=== PATIENT | male | born 1970 | race Hispanic/Latino ===

== ENCOUNTER 2016-06-15 22:28 | Emergency (ER) | payer MEDICARE ==
[2016-06-15 23:00] VITALS: BP 157/109
[2016-06-15] MEDS ORDERED: TORADOL IM ONE (23:39)
--- NOTE | 2016-06-15 23:39 | Emergency Department Report ---
HPI - General Chief Complaint: Extremity Problem,Nontraumatic Time Seen by Provider: 06/15/16 23:33 - HPI HPI: Patient is a 45-year-old male who presents to ED complaining spider bite to his left wrist times yesterday. Patient states felt something bite him on his wrist and caudally. She says since yesterday wrist has been slightly tender and swollen. Patient states pain at bite sites. Patient also says that he is out of his lisinopril medication for the past 2 months and has not been able to get it refilled. Patient denies fever/chills/nausea/vomiting/abdominal pain/loss of sensation of Wrist or fingers/headache/blurred vision/dizziness ED Past Medical Hx - Past Medical History Previous Medical History?: Yes Hx Hypertension: Yes (out of medication) Hx Psychiatric Treatment: Yes (depression, bi-polar, schizophrenia) Additional medical history: high cholesterol - Surgical History Past Surgical History?: No - Social History Smoking Status: Light Tobacco Smoker Substance Use Type: None - Medications Home Medications: Home Medications Medication Instructions Recorded Confirmed Last Taken Type Duloxetine HCl [Cymbalta] 60 mg PO DAILY #30 capsule. 01/11/16 Unknown Rx QUEtiapine [SEROquel] 800 mg PO QHS #120 tablet 01/11/16 Unknown Rx carBAMazepine [TEGretol] 200 mg PO QID #120 tablet 01/11/16 Unknown Rx hydrOXYzine PAMOATE [Vistaril] 50 mg PO TID #90 capsule 01/11/16 Unknown Rx Acetaminophen [Acetaminophen TAB] 500 mg PO Q6HR #20 tablet 06/15/16 Unknown Rx Cephalexin [Keflex] 1 tab PO BID #12 capsule 06/15/16 Unknown Rx Lisinopril [Zestril TAB] 20 mg PO QDAY #30 tablet 06/15/16 Unknown Rx ED Review of Systems ROS: Stated complaint: LT WRIST OPEN SORE Other details as noted in HPI Constitutional: denies: chills, fever Eyes: denies: eye pain, eye discharge, vision change ENT: denies: ear pain, throat pain Respiratory: denies: cough, orthopnea, shortness of breath, wheezing Cardiovascular: denies: chest pain, palpitations Endocrine: no symptoms reported. denies: excessive sweating, intolerance to cold Gastrointestinal: denies: abdominal pain, nausea, vomiting, diarrhea Genitourinary: denies: urgency, dysuria Musculoskeletal: denies: back pain, joint swelling, arthralgia Skin: pruritus, other (insect bite on left lateral wrist). denies: rash, lesions Neurological: denies: headache, weakness, numbness, paresthesias Psychiatric: denies: anxiety, depression Hematological/Lymphatic: denies: easy bleeding, easy bruising Physical Exam - Physical Exam Vital Signs: Vital Signs 06/15/16 22:58 Temperature 99.9 F H Pulse Rate 76 Respiratory 18 Rate Blood Pressure 157/109 O2 Sat by Pulse 98 Oximetry General: Patient alert and oriented 3 ,no distress, low-grade fever otherwise vital signs stable. Physical Exam: GENERAL: Alert and oriented x3, no apparent distress, Normal Gait, atraumatic. HEAD: Head is normocephalic and a-traumatic. EYES: Extra ocular muscles are intact. Pupils are equal, round, and reactive to light and accommodation. MOUTH:Mouth is well hydrated and without lesions. Tonsils nonerythematous or swollen, Uvula midline, Tongue not elevated. Mucous membranes are moist. Posterior pharynx clear, no exudate or lesions. Patent airways. NECK: Supple. Non edematous, No carotid bruits. No lymphadenopathy or thyromegaly. LUNGS: Symetrical with respiration, No wheezing, no rales or crackles, CTAB. HEART: S1, S2 present, regular rate and rhythm without murmur, no rubs, no gallops. ABDOMEN: No organomegaly was noted,Positive bowel sounds, soft, and non- distended. . Nontender to palpation on all Quadrants, NO CVA tenderness. EXTREMITIES/MUSCULOSKELETAL: No cyanosis, clubbing, rash, lesions or edema. Full ROM bilaterally. UE/LE Pulses 2+ bilaterally. LE and UE 5+ strength bilaterally NEUROLOGIC: No focal Deficit, Cranial nerves II through XII are grossly intact. No loss of sensation, No facial droop, Negative rhomberg. PSYCHIATRIC: Mood is congruent with affect, denies suicidal or homicidal ideations. SKIN: Warm and dry, moderate 1 cm cellulitis surrounding insect bite wound located on lateral aspect of left wrist. no pus/drainage. several other multiple healed bite gomez on lower arms bilaterally. ED Course Vital Signs 06/15/16 22:58 Temperature 99.9 F H Pulse Rate 76 Respiratory 18 Rate Blood Pressure 157/109 O2 Sat by Pulse 98 Oximetry ED Medical Decision Making - Medical Decision Making 45-year-old male presents with insect bite and medication refill Patient in no distress. ED course. Patient received 60 IM Toradol for pain and Tylenol for fever reduction. Discussed heat compressions to insect bite. Discussed small chain for inflammation and antibiotic to prevent bacterial infection. Discussed with patient follow-up with her primary care physician as referred. Critical care attestation.: If time is entered above; I have spent that time in minutes in the direct care of this critically ill patient, excluding procedure time. ED Disposition Clinical Impression: Insect bite, Cellulitis Disposition: DISCHARGED TO HOME OR SELFCARE Is pt being admited?: No Does the pt Need Aspirin: No Condition: Stable Instructions: Insect Bite or Sting (ED), Cellulitis (ED) Prescriptions: Acetaminophen [Acetaminophen TAB] 500 mg PO Q6HR #20 tablet Cephalexin [Keflex] 1 tab PO BID #12 capsule Lisinopril [Zestril TAB] 20 mg PO QDAY #30 tablet Referrals: [facility] [Outside] - 3-5 Days [facility] [Outside] - 3-5 Days [facility] [Outside] - 3-5 Days Time of Disposition: 23:56
[2016-06-15] MEDS ORDERED: TYLENOL PO ONE (23:43)
== END 2016-06-16 00:08 | disposition home or self-care (01) ==
LOC: ED 22:28
DX: S60.862A Insect bite (nonvenomous) of left wrist, initial encounter (principal); L03.114 Cellulitis of left upper limb; I10 Essential (primary) hypertension; F31.9 Bipolar disorder, unspecified; F20.9 Schizophrenia, unspecified; F17.200 Nicotine dependence, unspecified, uncomplicated; W57.XXXA Bitten or stung by nonvenomous insect and other nonvenomous arthropods, initial encounter; Y93.9 Activity, unspecified; Y92.9 Unspecified place or not applicable; Y99.9 Unspecified external cause status
CPT/HCPCS: 96372; 99282; J1885

== ENCOUNTER 2016-09-11 14:40 | Emergency (ER) | payer MEDICARE ==
[2016-09-11 15:42] VITALS: BP 147/99
--- NOTE | 2016-09-11 18:13 | Emergency Department Report ---
ED Recheck HPI - General Chief Complaint: Recheck/Abnormal Lab/Rx Stated Complaint: MEDS REFILL Time Seen by Provider: 09/11/16 18:08 Source: patient Mode of arrival: Ambulatory Limitations: No Limitations - History of Present Illness Initial Comments: Patient is a 46-year-old male who presents to ED for medication refill. Patient reports that he is out of his blood pressure medication lisinopril 20 mg and simply needs a refill on it. Patient denies any headaches, dizziness, lightheadedness, blurred vision, or any other symptoms. States otherwise feels really good. Onset/Timin -: days(s) Returns Today for: request for prescription, other (out of his medication) Symptoms Since Prior Visit: no new symptoms Associated Symptoms: none - Related Data Previous Rx's Medication Instructions Recorded Last Taken Type Duloxetine HCl [Cymbalta] 60 mg PO DAILY #30 capsule. 01/11/16 Unknown Rx QUEtiapine [SEROquel] 800 mg PO QHS #120 tablet 01/11/16 Unknown Rx carBAMazepine [TEGretol] 200 mg PO QID #120 tablet 01/11/16 Unknown Rx hydrOXYzine PAMOATE [Vistaril] 50 mg PO TID #90 capsule 01/11/16 Unknown Rx Acetaminophen [Acetaminophen TAB] 500 mg PO Q6HR #20 tablet 06/15/16 Unknown Rx Cephalexin [Keflex] 1 tab PO BID #12 capsule 06/15/16 Unknown Rx Lisinopril [Zestril TAB] 20 mg PO QDAY #30 tablet 06/15/16 Unknown Rx Lisinopril [Zestril TAB] 20 mg PO QDAY #30 tablet 09/11/16 Unknown Rx Allergies Allergy/AdvReac Type Severity Reaction Status Date / Time chlorpromazine HCl Allergy Itching Verified 09/11/16 15:38 [From Thorazine] fluoxetine HCl [From Prozac] Allergy Swelling Verified 09/11/16 15:38 haloperidol [From Haldol] Allergy Itching Verified 09/11/16 15:38 haloperidol lactate Allergy Itching Verified 09/11/16 15:38 [From Haldol] propranolol HCl Allergy Itching Verified 09/11/16 15:38 [From Inderal LA] ED Review of Systems ROS: Stated complaint: MEDS REFILL Other details as noted in HPI Constitutional: denies: chills, fever Eyes: denies: eye pain, eye discharge, vision change ENT: denies: ear pain, throat pain Respiratory: denies: cough, shortness of breath, wheezing Cardiovascular: denies: chest pain, palpitations Gastrointestinal: denies: abdominal pain, nausea, diarrhea Musculoskeletal: denies: back pain, joint swelling, arthralgia Neurological: denies: headache, weakness, paresthesias Psychiatric: denies: anxiety, depression ED Past Medical Hx - Past Medical History Hx Hypertension: Yes (out of medication) Hx Psychiatric Treatment: Yes (depression, bi-polar, schizophrenia) Additional medical history: high cholesterol - Surgical History Past Surgical History?: No - Social History Smoking Status: Current Every Day Smoker Substance Use Type: None - Medications Home Medications: Home Medications Medication Instructions Recorded Confirmed Last Taken Type Duloxetine HCl [Cymbalta] 60 mg PO DAILY #30 capsule. 01/11/16 Unknown Rx QUEtiapine [SEROquel] 800 mg PO QHS #120 tablet 01/11/16 Unknown Rx carBAMazepine [TEGretol] 200 mg PO QID #120 tablet 01/11/16 Unknown Rx hydrOXYzine PAMOATE [Vistaril] 50 mg PO TID #90 capsule 01/11/16 Unknown Rx Acetaminophen [Acetaminophen TAB] 500 mg PO Q6HR #20 tablet 06/15/16 Unknown Rx Cephalexin [Keflex] 1 tab PO BID #12 capsule 06/15/16 Unknown Rx Lisinopril [Zestril TAB] 20 mg PO QDAY #30 tablet 06/15/16 Unknown Rx Lisinopril [Zestril TAB] 20 mg PO QDAY #30 tablet 09/11/16 Unknown Rx ED Physical Exam - General Limitations: No Limitations General appearance: alert, in no apparent distress - Head Head exam: Present: atraumatic, normocephalic - Eye Eye exam: Present: normal appearance - Respiratory Respiratory exam: Present: normal lung sounds bilaterally. Absent: respiratory distress - Cardiovascular Cardiovascular Exam: Present: regular rate, normal rhythm. Absent: systolic murmur, diastolic murmur, rubs, gallop - Neurological Exam Neurological exam: Present: alert, oriented X3, normal gait - Psychiatric Psychiatric exam: Present: normal affect, normal mood ED Course Vital Signs 09/11/16 15:39 Temperature 98.4 F Pulse Rate 82 Respiratory 20 Rate Blood Pressure 147/99 O2 Sat by Pulse 97 Oximetry ED Recheck MDM - Medical Decision Making Patient is resting comfortably. We'll refill lisinopril 20 mg. PCP in 2-3 days. Critical care attestation.: If time is entered above; I have spent that time in minutes in the direct care of this critically ill patient, excluding procedure time. ED Disposition Clinical Impression: Encounter for medication refill Hypertension Qualifiers: Hypertension type: essential hypertension Qualified Code(s): I10 - Essential ( primary) hypertension Disposition: DISCHARGED TO HOME OR SELFCARE Is pt being admited?: No Does the pt Need Aspirin: No Condition: Stable Instructions: Hypertension (ED) Prescriptions: Lisinopril [Zestril TAB] 20 mg PO QDAY #30 tablet Referrals: PRIMARY CARE, [Primary Care Provider] - 3-5 Days Time of Disposition: 18:13
== END 2016-09-11 18:43 | disposition home or self-care (01) ==
LOC: ED 14:40
DX: Z76.0 Encounter for issue of repeat prescription (principal); I10 Essential (primary) hypertension; F31.9 Bipolar disorder, unspecified; F20.9 Schizophrenia, unspecified; E78.00 Pure hypercholesterolemia, unspecified; F17.200 Nicotine dependence, unspecified, uncomplicated; Z88.8 Allergy status to other drugs, medicaments and biological substances
CPT/HCPCS: 99282

== ENCOUNTER 2016-11-03 14:51 | Emergency (ER) | payer MEDICARE ==
[2016-11-03 16:32] LABS: Urine Drugs of Abuse Note Disclamer
[2016-11-03 16:33] LABS: Basophils % (Auto) 0.5 % (0.0-1.8); Eosinophils % (Auto) 0.1 % (0.0-4.3); Hematocrit 46.7 % (35.5-45.6); Hemoglobin 15.7 gm/dl (11.8-15.2); Mean Corpuscular HGB Conc 34 % (32-34); Mean Corpuscular Hemoglobin 32 pg (28-32); Mean Corpuscular Volume 94 fl (84-94); Platelet Count 185 K/mm3 (140-440); Red Blood Count 4.97 M/mm3 (3.65-5.03); Red Cell Distribution Width 13.7 % (13.2-15.2); White Blood Count 11.4 K/mm3 (4.5-11.0)
[2016-11-03 16:47] LABS: BUN/Creatinine Ratio 13.07; Chloride 101.1 mmol/L (98-107); Potassium 4.2 mmol/L (3.6-5.0)
[2016-11-03 17:08] LABS: Bilirubin,Urine NEG (Negative); Blood,Urine NEG (Negative); Ketones,Urine NEG (Negative); Leukocyte Esterase,Urine NEG (Negative); Mucus,Urine FEW /HPF; Nitrite,Urine NEG (Negative)
[2016-11-03] MEDS ORDERED: ATIVAN IM PRN (17:35)
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
[2016-11-03] MEDS ORDERED: ACTICIN TP ONE (19:47)
[2016-11-03 19:50] LABS: Salicylate < 0.3 mg/dL (2.8-20.0); Valproate < 2.8 ug/mL (50-100)
[2016-11-03] MEDS ORDERED: NON-FORMULARY (Duloxetine Hcl [Cymbalta] 60 MG) PO SCH (20:00)
[2016-11-04] MEDS: ZESTRIL PO SCH ×2 (02:43→10:28)
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
[2016-11-04 16:14] LABS: Alanine Aminotransferase 11 units/L (7-56); Alkaline Phosphatase 91 units/L (35-129)
[2016-11-04] MEDS: CYMBALTA PO SCH (17:42)
[2016-11-05] MEDS: CYMBALTA PO SCH (10:30)
[2016-11-05] MEDS: ZESTRIL PO SCH (10:30)
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
--- NOTE | 2016-11-06 08:53 | Progress Note ---
Subjective - Reason for Consult Consult date: 11/06/16 Reason for consult: Psychiatry Follow-up - Chief Complaint Chief complaint: "Can I go home today" This is a 46-year-old male presenting to [facility] because of SI/HI's. Today patient is calm and cooperative during our conversation. He stated that he was going to be discharged yesterday, but it didn't happened. Patient denies SI/HI's, AVH's, or depression symptoms. His biggest issue was his current living arrangement, so a friend Pastor Alicia will help him found another place to stay. Mental Status Exam - Vital signs Last Vital Signs Temp 98.6 F 11/05/16 07:37 Pulse 61 11/05/16 23:53 Resp 17 11/05/16 23:53 BP 130/82 11/05/16 23:53 Pulse Ox 99 11/05/16 23:53 - Exam Narrative exam: MSE: Appearance: cooperative, calm Behavior: poor eye contact Speech: regular rate and tone Mood: "I feel so much better" Affect: congruent to mood Thought Process: linear Thought Content: denies SI/HI's AVH's Motor Activity: ambulatory Cognition: a/ox 3 Insight: fair Judgment: fair Assessment and Plan Impression: This is a 46-year-old male presenting to [facility] because of SI/HI's. Today patient is calm and cooperative during our conversation. He stated that he was going to be discharged yesterday, but it didn't happened. Patient denies SI/HI's, AVH's, or depression symptoms. Collateral Information: Pastor Alicia [phone] will pick patient up and coordinate his living arrangements. Recommendation/Plan: Rescind 1013. Continue current psy medication regimen. Patient has a psychiatrist and seen by a local ACT team.
[2016-11-06] MEDS: CYMBALTA PO SCH (10:15)
[2016-11-06] MEDS: ZESTRIL PO SCH (10:22)
[2016-11-06 10:24] VITALS: BP 114/69
== END 2016-11-06 13:18 ==
LOC: ED 14:51 → EEVIPCON 14:51 → ED 11-06 13:18
DX: R45.851 Suicidal ideations (principal); R45.850 Homicidal ideations; Z00.8 Encounter for other general examination; I10 Essential (primary) hypertension; F31.9 Bipolar disorder, unspecified; F20.9 Schizophrenia, unspecified; E78.00 Pure hypercholesterolemia, unspecified; F17.200 Nicotine dependence, unspecified, uncomplicated; Z88.8 Allergy status to other drugs, medicaments and biological substances
CPT/HCPCS: 36415; 80048; 80164; 80307; 81001; 82550; 84075; 84450; 84460; 85025; 93005; 93010; 99285; G0480; 80320

== ENCOUNTER 2017-01-05 09:13 | Emergency (ER) | payer MEDICARE ==
--- NOTE | 2017-01-05 12:32 | Emergency Department Report ---
ED General Adult HPI - General Chief complaint: Skin Rash Stated complaint: MED REFILL/RASH Time Seen by Provider: 01/05/17 12:29 Source: patient, RN notes reviewed, old records reviewed Mode of arrival: Ambulatory Limitations: No Limitations - History of Present Illness Initial comments: This is a 46-year-old male. He presents to the ER with 2 complaints. His first complaint is medication refill. He takes lisinopril 20 mg daily, Cymbalta 60 mg daily, Seroquel 800 mg daily at bedtime, Tegretol 200 mg twice daily, Vistaril 50 mg twice daily. He is not homicidal or suicidal, he is not experiencing audio or visual hallucinations, and he reports he recently missed an appointment with his outpatient psychiatrist in [place], Dr. Pelayo. The patient's next complaint is rash. The rash started on the back, then about the chest, abdomen, and lower extremities. It is pruritic. No recent trips, no recent antibiotic use, no sick contacts, patient sleeps in bed, he reports no insect bites or stings. No fevers, chills, chest pain, shortness of breath -: Gradual, week(s) Location: chest, back, abdomen, left, right, upper extremity, lower extremity Consistency: constant Improves with: medication Worsens with: none Associated Symptoms: rash. denies: confusion, chest pain, cough, diaphoresis, headaches, loss of appetite, malaise, nausea/vomiting, seizure, shortness of breath, syncope, weakness - Related Data Previous Rx's Medication Instructions Recorded Last Taken Type Depakote 500 mg PO QAM #30 11/06/16 Unknown Rx Divalproex ER [Depakote ER] 1,000 mg PO QPM #30 tablet 11/06/16 Unknown Rx Duloxetine HCl [Cymbalta] 60 mg PO DAILY #7 capsule. 01/05/17 Unknown Rx Lisinopril [Zestril TAB] 20 mg PO QDAY #30 tablet 01/05/17 Unknown Rx Permethrin 5% [Acticin 5% CREAM] 1 applicatio TP ONCE #2 tube 01/05/17 Unknown Rx QUEtiapine [SEROquel] 800 mg PO QHS #21 tablet 01/05/17 Unknown Rx carBAMazepine [TEGretol] 200 mg PO TID #21 tablet 01/05/17 Unknown Rx hydrOXYzine PAMOATE [Vistaril] 50 mg PO TID #21 capsule 01/05/17 Unknown Rx Allergies Allergy/AdvReac Type Severity Reaction Status Date / Time chlorpromazine HCl Allergy Itching Verified 09/11/16 15:38 [From Thorazine] fluoxetine HCl [From Prozac] Allergy Swelling Verified 09/11/16 15:38 haloperidol [From Haldol] Allergy Itching Verified 09/11/16 15:38 haloperidol lactate Allergy Itching Verified 09/11/16 15:38 [From Haldol] propranolol HCl Allergy Itching Verified 09/11/16 15:38 [From Inderal LA] ED Review of Systems ROS: Stated complaint: MED REFILL/RASH Other details as noted in HPI ED Past Medical Hx - Past Medical History Previous Medical History?: Yes Hx Hypertension: Yes (out of medication) Hx Psychiatric Treatment: Yes (depression, bi-polar, schizophrenia) Additional medical history: high cholesterol - Surgical History Past Surgical History?: No - Social History Smoking Status: Current Every Day Smoker Substance Use Type: None - Medications Home Medications: Home Medications Medication Instructions Recorded Confirmed Last Taken Type Depakote 500 mg PO QAM #30 11/06/16 Unknown Rx Divalproex ER [Depakote ER] 1,000 mg PO QPM #30 tablet 11/06/16 Unknown Rx Duloxetine HCl [Cymbalta] 60 mg PO DAILY #7 capsule. 01/05/17 Unknown Rx Lisinopril [Zestril TAB] 20 mg PO QDAY #30 tablet 01/05/17 Unknown Rx Permethrin 5% [Acticin 5% CREAM] 1 applicatio TP ONCE #2 tube 01/05/17 Unknown Rx QUEtiapine [SEROquel] 800 mg PO QHS #21 tablet 01/05/17 Unknown Rx carBAMazepine [TEGretol] 200 mg PO TID #21 tablet 01/05/17 Unknown Rx hydrOXYzine PAMOATE [Vistaril] 50 mg PO TID #21 capsule 01/05/17 Unknown Rx ED Physical Exam - General Limitations: No Limitations General appearance: alert, in no apparent distress - Head Head exam: Present: atraumatic, normocephalic - Eye Eye exam: Present: normal appearance, EOMI. Absent: nystagmus - ENT ENT exam: Present: normal exam, normal orophraynx, mucous membranes moist, normal external ear exam - Neck Neck exam: Present: normal inspection, full ROM. Absent: tenderness, meningismus - Respiratory Respiratory exam: Present: normal lung sounds bilaterally. Absent: respiratory distress, wheezes, rales, rhonchi, stridor, chest wall tenderness - Cardiovascular Cardiovascular Exam: Present: regular rate, normal rhythm, normal heart sounds. Absent: bradycardia, tachycardia, irregular rhythm, systolic murmur, diastolic murmur, rubs, gallop - GI/Abdominal GI/Abdominal exam: Present: soft, normal bowel sounds. Absent: distended, tenderness, guarding, rigid, pulsatile mass - Rectal Rectal exam: Present: deferred - Extremities Exam Extremities exam: Present: normal inspection, full ROM, normal capillary refill. Absent: pedal edema, joint swelling, calf tenderness - Back Exam Back exam: Present: normal inspection, full ROM. Absent: tenderness, CVA tenderness (R), CVA tenderness (L), muscle spasm, paraspinal tenderness, vertebral tenderness - Neurological Exam Neurological exam: Present: alert, oriented X3, normal gait, other (Extraocular movements intact. Tongue midline. No facial droop. Facial sensation intact to light touch in the V1, V2, V3 distribution bilaterally. 5 and 5 strength in 4 extremities.. Sensation is intact to light touch in 4 extremities.). Absent : motor sensory deficit - Psychiatric Psychiatric exam: Present: normal affect, normal mood. Absent: homicidal ideation, suicidal ideation - Skin Skin exam: Present: warm, dry, intact, normal color, other (blanching macular rash punctate lesions noted on the lower extremities. Nontender, with no pus, streaking or crepitus) ED Course Vital Signs 01/05/17 10:59 Temperature 97.6 F Pulse Rate 86 Respiratory 20 Rate Blood Pressure 142/97 O2 Sat by Pulse 97 Oximetry ED Medical Decision Making - Lab Data Vital Signs 01/05/17 10:59 Temperature 97.6 F Pulse Rate 86 Respiratory 20 Rate Blood Pressure 142/97 O2 Sat by Pulse 97 Oximetry - Medical Decision Making Differential diagnosis: Medication refill, nonspecific contact dermatitis, insect bites Assessment and plan: 46-year-old male here for medication refill and nonspecific rash. Rash appears to be either contact dermatitis or insect bite. Patient will be started on permethrin. His psychiatric medications have been given a one-week refill. He is instructed to follow-up with his outpatient psychiatrist. He is not homicidal or suicidal, he has a GCS of 15, with an NIH score of 0, and he is clinically sober at this time. He is afebrile, and nontoxic. He is instructed to follow up. Return precautions are reviewed. Critical care attestation.: If time is entered above; I have spent that time in minutes in the direct care of this critically ill patient, excluding procedure time. ED Disposition Clinical Impression: Rash, Medication refill Disposition: DC- TO HOME OR SELFCARE Is pt being admited?: No Does the pt Need Aspirin: No Condition: Stable Instructions: Insect Bite or Sting (ED) Additional Instructions: Take medications as directed. I have given you a one-week refill on your psychiatric medications. I recommend that you follow up with your primary care doctor or mental health professional within the next week to have the prescriptions further extended period in addition, the rash is most likely consistent with insect bites. Used the permethrin cream as directed. Wash all clothing with hot water and soap. Have your house evaluated by an pasting inspector. Dr. Arita is a local primary care doctor. Dr. Neri is a local data processing specialist. Follow-up with either your primary care doctor or french polisher for your rash within the next month. Return to the ER right away with fevers, chills, chest pain, shortness of breath, nausea, vomiting, confusion, inability to tolerate liquid feeds, homicidality or suicidality. Prescriptions: QUEtiapine [SEROquel] 800 mg PO QHS #21 tablet Duloxetine HCl [Cymbalta] 60 mg PO DAILY #7 capsule. Lisinopril [Zestril TAB] 20 mg PO QDAY #30 tablet Permethrin 5% [Acticin 5% CREAM] 1 applicatio TP ONCE #2 tube Referrals: PRIMARY MD SOPHIE [Primary Care Provider] - 3-5 Days MAC BENTON MD [Staff Physician] - 3-5 Days CHRISTIANNE NERI MD [Staff Physician] - 3-5 Days
[2017-01-05 13:19] VITALS: BP 152/90
== END 2017-01-05 13:18 | disposition home or self-care (01) ==
LOC: ED 09:13
DX: R21 Rash and other nonspecific skin eruption (principal); I10 Essential (primary) hypertension; F31.9 Bipolar disorder, unspecified; F20.9 Schizophrenia, unspecified; F17.200 Nicotine dependence, unspecified, uncomplicated
CPT/HCPCS: 99282

== ENCOUNTER 2017-02-05 21:30 | Emergency (ER) | payer MEDICARE ==
[2017-02-05 21:47] VITALS: BP 139/104
[2017-02-05 22:12] LABS: Basophils % (Auto) 0.6 % (0.0-1.8); Eosinophils % (Auto) 0.4 % (0.0-4.3); Hematocrit 45.8 % (35.5-45.6); Hemoglobin 15.3 gm/dl (11.8-15.2); Mean Corpuscular HGB Conc 33 % (32-34); Mean Corpuscular Hemoglobin 32 pg (28-32); Mean Corpuscular Volume 95 fl (84-94); Platelet Count 202 K/mm3 (140-440); Red Blood Count 4.83 M/mm3 (3.65-5.03); Red Cell Distribution Width 13.4 % (13.2-15.2); White Blood Count 10.9 K/mm3 (4.5-11.0)
[2017-02-05 22:29] LABS: Anion Gap 19 mmol/L; Blood Urea Nitrogen 9 mg/dL (9-20); Calcium 8.8 mg/dL (8.4-10.2); Carbon Dioxide 25 mmol/L (22-30); Chloride 103.5 mmol/L (98-107); Glucose 109 mg/dL (75-100); Potassium 4.4 mmol/L (3.6-5.0); Sodium 143 mmol/L (137-145)
[2017-02-05 23:26] LABS: Bacteria,Urine 1+ /HPF (Negative); Bilirubin,Urine SM (Negative); Blood,Urine NEG (Negative); Ketones,Urine TR mg/dL (Negative); Leukocyte Esterase,Urine NEG (Negative); Mucus,Urine 3+ /HPF; Nitrite,Urine NEG (Negative)
== END 2017-02-05 22:20 | disposition left against medical advice (07) ==
LOC: ED 21:30
DX: R11.2 Nausea with vomiting, unspecified (principal); R19.7 Diarrhea, unspecified; M79.604 Pain in right leg; M19.90 Unspecified osteoarthritis, unspecified site; I10 Essential (primary) hypertension; F31.9 Bipolar disorder, unspecified; F20.9 Schizophrenia, unspecified; F17.200 Nicotine dependence, unspecified, uncomplicated; Z88.8 Allergy status to other drugs, medicaments and biological substances; Z53.21 Procedure and treatment not carried out due to patient leaving prior to being seen by health care provider
CPT/HCPCS: 36415; 80048; 81001; 85025

== ENCOUNTER 2017-02-24 01:13 | Emergency (ER) | payer MEDICARE | END 2017-02-24 02:30 | disposition left against medical advice (07) | LOC: ED 01:13 | DX: R51 Headache (principal); Z53.21 Procedure and treatment not carried out due to patient leaving prior to being seen by health care provider ==

== ENCOUNTER 2017-03-22 19:01 | Emergency (ER) | payer MEDICARE ==
[2017-03-22 19:30] VITALS: BP 144/86
[2017-03-22 20:21] LABS: Alanine Aminotransferase 28 units/L (7-56); Albumin/Globulin Ratio 1.6 %; Alkaline Phosphatase 88 units/L (35-129); Anion Gap 18 mmol/L; BUN/Creatinine Ratio 11; Blood Urea Nitrogen 9 mg/dL (9-20); Calcium 8.8 mg/dL (8.4-10.2); Carbon Dioxide 22 mmol/L (22-30); Chloride 106.6 mmol/L (98-107); Glucose 95 mg/dL (75-100); Lipase 21 units/L (13-60); Potassium 4.2 mmol/L (3.6-5.0); Sodium 142 mmol/L (137-145); Total Protein 6.5 g/dL (6.3-8.2)
[2017-03-22 20:22] LABS: Basophils % (Auto) 0.5 % (0.0-1.8); Eosinophils % (Auto) 1.2 % (0.0-4.3); Hematocrit 42.6 % (35.5-45.6); Mean Corpuscular HGB Conc 33 % (32-34); Mean Corpuscular Hemoglobin 31 pg (28-32); Mean Corpuscular Volume 94 fl (84-94); Platelet Count 211 K/mm3 (140-440); Red Blood Count 4.54 M/mm3 (3.65-5.03); Red Cell Distribution Width 13.4 % (13.2-15.2); White Blood Count 9.2 K/mm3 (4.5-11.0)
[2017-03-22 21:08] LABS: Bilirubin,Urine NEG (Negative); Blood,Urine NEG (Negative); Ketones,Urine NEG (Negative); Leukocyte Esterase,Urine NEG (Negative); Nitrite,Urine NEG (Negative); Protein,Urine <15 mg/dL mg/dL (Negative); RBC,Urine < 1.0 /HPF (0.0-6.0); Urobilinogen,Urine < 2.0 mg/dL (<2.0); WBC,Urine < 1.0 /HPF (0.0-6.0)
== END 2017-03-22 20:15 | disposition left against medical advice (07) ==
LOC: ED 19:01
DX: R11.2 Nausea with vomiting, unspecified (principal); Z53.21 Procedure and treatment not carried out due to patient leaving prior to being seen by health care provider
CPT/HCPCS: 36415; 80053; 81001; 83690; 85025

== ENCOUNTER 2017-04-20 17:37 | Emergency (ER) | payer MEDICARE ==
[2017-04-20 18:32] LABS: Basophils % (Auto) 0.5 % (0.0-1.8); Eosinophils % (Auto) 1.3 % (0.0-4.3); Hemoglobin 14.7 gm/dl (11.8-15.2); Mean Corpuscular HGB Conc 33 % (32-34); Mean Corpuscular Hemoglobin 31 pg (28-32); Mean Corpuscular Volume 94 fl (84-94); Platelet Count 191 K/mm3 (140-440); Red Blood Count 4.68 M/mm3 (3.65-5.03); Red Cell Distribution Width 13.7 % (13.2-15.2); White Blood Count 8.8 K/mm3 (4.5-11.0)
[2017-04-20 18:57] LABS: Anion Gap 19 mmol/L; BUN/Creatinine Ratio 11; Blood Urea Nitrogen 12 mg/dL (9-20); Calcium 8.9 mg/dL (8.4-10.2); Carbon Dioxide 22 mmol/L (22-30); Chloride 104.2 mmol/L (98-107); Glucose 102 mg/dL (75-100); Potassium 4.2 mmol/L (3.6-5.0); Sodium 141 mmol/L (137-145)
[2017-04-20 20:37] LABS: Urine Drugs of Abuse Note Disclamer
[2017-04-20 20:54] LABS: Bilirubin,Urine NEG (Negative); Blood,Urine NEG (Negative); Ketones,Urine NEG (Negative); Leukocyte Esterase,Urine NEG (Negative); Nitrite,Urine NEG (Negative); Protein,Urine <15 mg/dL mg/dL (Negative); RBC,Urine < 1.0 /HPF (0.0-6.0); Urobilinogen,Urine < 2.0 mg/dL (<2.0); WBC,Urine < 1.0 /HPF (0.0-6.0)
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
[2017-04-21 16:21] LABS: Alanine Aminotransferase 12 units/L (7-56); Alkaline Phosphatase 77 units/L (35-129)
[2017-04-22 12:59] VITALS: BP 142/106
--- NOTE | 2017-04-22 21:56 | Progress Note ---
Subjective - Reason for Consult Reason for consult: mood lability Mental Status Exam - Vital signs Last Vital Signs Temp 97.7 F 04/22/17 12:58 Pulse 78 04/22/17 12:58 Resp 18 04/22/17 12:58 BP 142/106 04/22/17 12:58 Pulse Ox 98 04/22/17 09:28 Assessment and Plan Appears to have a stable mood today. MENTAL STATUS EXAM: General Appearance: Dressed in hospital gown, withdrawn Sensorium/Consciousness: Mostly alert Eye Contact: limited Attitude / Behavior: cooperative Psychomotor & Musculoskeletal Activity: WNL Mood: stable Affect: euthymic Speech / Language: normal Thought Processes: organized Thought Content: denies SI/HI Perception: no AVH Orientation: person/place/time Judgment What would you do if you smelled smoke in a crowded movie theater?: limited Insight: limited Intelligence Vocabulary, general fund of knowledge, educational level: fair Capacity of ADLs: Independent Bipolar Disorder Patient to be transferred to inpatient level of care today
== END 2017-04-22 12:59 ==
LOC: ED 17:37 → EEVIPCON 17:37 → ED 04-22 12:58
DX: F20.9 Schizophrenia, unspecified (principal); R45.851 Suicidal ideations; R45.850 Homicidal ideations; M19.90 Unspecified osteoarthritis, unspecified site; E78.00 Pure hypercholesterolemia, unspecified; F17.200 Nicotine dependence, unspecified, uncomplicated
CPT/HCPCS: 36415; 80048; 80164; 80307; 81001; 84075; 84450; 84460; 85025; 99285; G0480; 80320

== ENCOUNTER 2017-05-07 11:44 | Emergency (ER) | payer MEDICARE ==
[2017-05-07 12:40] LABS: Urine Drugs of Abuse Note Disclamer
[2017-05-07 12:40] LABS: Basophils % (Auto) 0.7 % (0.0-1.8); Eosinophils % (Auto) 2.2 % (0.0-4.3); Hematocrit 43.4 % (35.5-45.6); Hemoglobin 14.5 gm/dl (11.8-15.2); Mean Corpuscular HGB Conc 33 % (32-34); Mean Corpuscular Hemoglobin 31 pg (28-32); Mean Corpuscular Volume 94 fl (84-94); Platelet Count 161 K/mm3 (140-440); Red Blood Count 4.64 M/mm3 (3.65-5.03); Red Cell Distribution Width 13.6 % (13.2-15.2)
[2017-05-07 12:43] LABS: Anion Gap 17 mmol/L; BUN/Creatinine Ratio 11; Blood Urea Nitrogen 10 mg/dL (9-20); Calcium 8.9 mg/dL (8.4-10.2); Carbon Dioxide 24 mmol/L (22-30); Chloride 104.8 mmol/L (98-107); Glucose 90 mg/dL (75-100); Potassium 4.7 mmol/L (3.6-5.0); Sodium 141 mmol/L (137-145)
[2017-05-07 12:51] LABS: Bilirubin,Urine NEG (Negative); Blood,Urine NEG (Negative); Ketones,Urine NEG (Negative); Leukocyte Esterase,Urine NEG (Negative); Mucus,Urine 1+ /HPF; Nitrite,Urine NEG (Negative); Protein,Urine <15 mg/dL mg/dL (Negative); Urobilinogen,Urine < 2.0 mg/dL (<2.0)
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
[2017-05-07 14:19] LABS: Alanine Aminotransferase 15 units/L (7-56); Albumin 4.3 g/dL (3.9-5); Albumin/Globulin Ratio 2.2 %; Alkaline Phosphatase 86 units/L (35-129); Total Protein 6.3 g/dL (6.3-8.2)
[2017-05-07 14:20] LABS: Bilirubin,Direct < 0.2 mg/dL (0-0.2); Bilirubin,Indirect 0.2 mg/dL
[2017-05-07 19:31] VITALS: BP 133/91
[2017-05-08] MEDS ORDERED: ZESTRIL PO SCH (10:00)
== END 2017-05-08 07:04 ==
LOC: ED 11:44 → EEVIPCON 11:44 → ED 05-08 07:04
DX: R45.851 Suicidal ideations (principal); R45.850 Homicidal ideations; F32.9 Major depressive disorder, single episode, unspecified; I10 Essential (primary) hypertension; M19.90 Unspecified osteoarthritis, unspecified site; E78.5 Hyperlipidemia, unspecified; F17.200 Nicotine dependence, unspecified, uncomplicated; Z88.8 Allergy status to other drugs, medicaments and biological substances
CPT/HCPCS: 36415; 80048; 80074; 80307; 81001; 85025; 99285; G0480; 80320

== ENCOUNTER 2017-09-24 19:47 | Emergency (ER) | payer MEDICARE | END 2017-09-25 02:56 | disposition left against medical advice (07) | LOC: ED 19:47 | DX: Z76.0 Encounter for issue of repeat prescription (principal); Z53.21 Procedure and treatment not carried out due to patient leaving prior to being seen by health care provider ==

== ENCOUNTER 2017-10-05 11:03 | Emergency (ER) | payer MEDICARE ==
[2017-10-05 12:10] VITALS: BP 138/96
[2017-10-05 12:48] LABS: Bacteria,Urine 1+ /HPF (Negative); Bilirubin,Urine NEG (Negative); Blood,Urine NEG (Negative); Color,Urine Yellow (Yellow); Mucus,Urine 3+ /HPF; Protein,Urine <15 mg/dL mg/dL (Negative); RBC,Urine < 1.0 /HPF (0.0-6.0); Urobilinogen,Urine < 2.0 mg/dL (<2.0)
[2017-10-05 12:57] LABS: Amphetamine Screen,Urine PRESUMPTIVE NEGATIVE; Benzodiazepines Screen,Urine PRESUMPTIVE NEGATIVE; Cannabinoid Screen,Urine PRESUMPTIVE NEGATIVE; Cocaine Screen,Urine PRESUMPTIVE NEGATIVE; Methadone Screen,Urine PRESUMPTIVE NEGATIVE; Opiate Screen,Urine PRESUMPTIVE NEGATIVE
[2017-10-05 13:08] LABS: Basophils % (Auto) 0.3 % (0.0-1.8); Eosinophils % (Auto) 0.1 % (0.0-4.3); Hematocrit 48.5 % (35.5-45.6); Lymphocytes # (Auto) 1.6 K/mm3 (1.2-5.4); Lymphocytes % (Auto) 22.5 % (13.4-35.0); Mean Corpuscular HGB Conc 33 % (32-34); Mean Corpuscular Hemoglobin 32 pg (28-32); Mean Corpuscular Volume 96 fl (84-94); Monocytes # (Auto) 0.7 K/mm3 (0.0-0.8); Monocytes % (Auto) 10.2 % (0.0-7.3); Platelet Count 229 K/mm3 (140-440); Red Blood Count 5.05 M/mm3 (3.65-5.03); Red Cell Distribution Width 13.2 % (13.2-15.2)
[2017-10-05 13:46] LABS: BUN/Creatinine Ratio 12; Blood Urea Nitrogen 11 mg/dL (9-20); Calcium 9.2 mg/dL (8.4-10.2); Hemolysis Index 20
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
== END 2017-10-05 16:55 ==
LOC: ED 11:03
DX: F31.9 Bipolar disorder, unspecified (principal); F20.9 Schizophrenia, unspecified; F17.200 Nicotine dependence, unspecified, uncomplicated; M19.90 Unspecified osteoarthritis, unspecified site; Z88.8 Allergy status to other drugs, medicaments and biological substances
CPT/HCPCS: 36415; 80048; 80307; 81001; 85025; 99283; G0480; 80320

== ENCOUNTER 2018-08-04 08:17 | Emergency (ER) | payer MEDICARE ==
--- NOTE | 2018-08-04 09:23 | Emergency Department Report ---
ED Recheck HPI - General Chief Complaint: Recheck/Abnormal Lab/Rx Stated Complaint: MH/MEDICATION REFILL Time Seen by Provider: 08/04/18 08:56 Source: patient Mode of arrival: Ambulatory Limitations: No Limitations - History of Present Illness Initial Comments: This is a 47-year-old male here for refill on his psychiatric medication. He states that he has a history of depression and bipolar disorder and he was here and was treated and sent somewhere for recovery. He said he is feeling a lot better and his medication but he has not had a chance to go to [facility] to see his psychiatrist in he does not want to run out of his medication because is they are helping him a lot. Patient says the last time he was here he was sent to [facility]. He is requesting refill on Tegretol, Seroquel, BuSpar, Abilify hydrochlorothiazide, lisinopril, albuterol and Norvasc and he has doses. Denies any pain, suicide or homicide ideation. MD Complaint: medication refill request Initial Visit For: other (mental health) Returns Today for: request for prescription Symptoms Since Prior Visit: no new symptoms Context: ran out of medication Associated Symptoms: none Treatments Prior to Arrival: other medications (patient was 07/04/2018 and was given prescription.) - Related Data Previous Rx's Medication Instructions Recorded Last Taken Type Depakote 500 mg PO QAM #30 11/06/16 Unknown Rx Divalproex ER [Depakote ER] 1,000 mg PO QPM #30 tablet 11/06/16 Unknown Rx Duloxetine HCl [Cymbalta] 60 mg PO DAILY #7 capsule. 01/05/17 Unknown Rx Permethrin 5% [Acticin 5% CREAM] 1 applicatio TP ONCE #2 tube 01/05/17 Unknown Rx hydrOXYzine PAMOATE [Vistaril] 50 mg PO TID #21 capsule 01/05/17 Unknown Rx ALBUTEROL Inhaler(NF) [VENTOLIN 1 puff IH Q6H PRN #1 inha 08/04/18 Unknown Rx Inhaler(NF)] ARIPiprazole [Abilify TAB] 5 mg PO DAILY 15 Days #45 tab 08/04/18 Unknown Rx Lisinopril [Zestril TAB] 20 mg PO QDAY #30 tablet 08/04/18 Unknown Rx QUEtiapine [SEROquel] 800 mg PO QHS #21 tablet 08/04/18 Unknown Rx amLODIPine [Norvasc] 5 mg PO DAILY 30 Days #30 tab 08/04/18 Unknown Rx busPIRone [Buspar] 5 mg PO QDAY 15 Days #15 tablet 08/04/18 Unknown Rx carBAMazepine [TEGretol] 200 mg PO Q12H 15 Days #30 tablet 08/04/18 Unknown Rx hydroCHLOROthiazide [HCTZ] 25 mg PO QDAY 15 Days #30 tablet 08/04/18 Unknown Rx Allergies Allergy/AdvReac Type Severity Reaction Status Date / Time benztropine [From Cogentin] Allergy Itching Verified 08/04/18 08:18 chlorpromazine HCl Allergy Itching Verified 08/04/18 08:18 [From Thorazine] fluoxetine HCl [From Prozac] Allergy Swelling Verified 08/04/18 08:18 haloperidol [From Haldol] Allergy Itching Verified 08/04/18 08:18 haloperidol lactate Allergy Itching Verified 08/04/18 08:18 [From Haldol] propranolol HCl Allergy Itching Verified 08/04/18 08:18 [From Inderal LA] ED Review of Systems ROS: Stated complaint: MH/MEDICATION REFILL Other details as noted in HPI Constitutional: other (requesting medication refill). denies: chills, fever Eyes: denies: eye pain, vision change Respiratory: denies: cough, shortness of breath, wheezing Cardiovascular: denies: chest pain, palpitations, edema, syncope Gastrointestinal: denies: abdominal pain, nausea, vomiting, diarrhea, constipation Genitourinary: denies: urgency, hematuria Musculoskeletal: denies: back pain, joint swelling, arthralgia, myalgia Skin: denies: rash Neurological: denies: headache Psychiatric: denies: depression, auditory hallucinations, visual hallucinations, homicidal thoughts (history denies), suicidal thoughts ED Past Medical Hx - Past Medical History Previous Medical History?: Yes Hx Hypertension: Yes (out of medication) Hx Arthritis: Yes Hx Psychiatric Treatment: Yes (depression, bi-polar, schizophrenia) Additional medical history: high cholesterol - Surgical History Past Surgical History?: No - Family History Family history: hypertension - Social History Smoking Status: Current Every Day Smoker Substance Use Type: None - Medications Home Medications: Home Medications Medication Instructions Recorded Confirmed Last Taken Type Depakote 500 mg PO QAM #30 11/06/16 07/04/18 Unknown Rx Divalproex ER [Depakote ER] 1,000 mg PO QPM #30 tablet 11/06/16 07/04/18 Unknown Rx Duloxetine HCl [Cymbalta] 60 mg PO DAILY #7 capsule.dr 01/05/17 07/04/18 Unknown Rx Permethrin 5% [Acticin 5% CREAM] 1 applicatio TP ONCE #2 tube 01/05/17 07/04/18 Unknown Rx hydrOXYzine PAMOATE [Vistaril] 50 mg PO TID #21 capsule 01/05/17 07/04/18 Unknown Rx ALBUTEROL Inhaler(NF) [VENTOLIN 1 puff IH Q6H PRN #1 inha 08/04/18 Unknown Rx Inhaler(NF)] ARIPiprazole [Abilify TAB] 5 mg PO DAILY 15 Days #45 tab 08/04/18 Unknown Rx Lisinopril [Zestril TAB] 20 mg PO QDAY #30 tablet 08/04/18 Unknown Rx QUEtiapine [SEROquel] 800 mg PO QHS #21 tablet 08/04/18 Unknown Rx amLODIPine [Norvasc] 5 mg PO DAILY 30 Days #30 tab 08/04/18 Unknown Rx busPIRone [Buspar] 5 mg PO QDAY 15 Days #15 tablet 08/04/18 Unknown Rx carBAMazepine [TEGretol] 200 mg PO Q12H 15 Days #30 tablet 08/04/18 Unknown Rx hydroCHLOROthiazide [HCTZ] 25 mg PO QDAY 15 Days #30 tablet 08/04/18 Unknown Rx ED Physical Exam - General Limitations: No Limitations General appearance: alert, in no apparent distress - Head Head exam: Present: atraumatic, normocephalic, normal inspection, other (normal exam) - Eye Eye exam: Present: normal appearance, PERRL, EOMI Pupils: Present: normal accommodation - ENT ENT exam: Present: normal exam, normal orophraynx, mucous membranes moist - Neck Neck exam: Present: normal inspection, full ROM. Absent: tenderness, lymphadenopathy - Respiratory Respiratory exam: Present: normal lung sounds bilaterally. Absent: respiratory distress, chest wall tenderness - Cardiovascular Cardiovascular Exam: Present: regular rate, normal rhythm, normal heart sounds - GI/Abdominal GI/Abdominal exam: Present: soft, normal bowel sounds. Absent: distended, tenderness, guarding, rebound, rigid, mass, bruit - Extremities Exam Extremities exam: Present: normal inspection, full ROM, normal capillary refill, other (No cce. + 2 pulses in all extremities, no neurovascular compromise). Absent: tenderness, pedal edema, joint swelling - Back Exam Back exam: Present: normal inspection, full ROM, other (Bernard Hayden difficulties). Absent: tenderness - Neurological Exam Neurological exam: Present: alert, oriented X3, normal gait, reflexes normal. Absent: motor sensory deficit - Psychiatric Psychiatric exam: Present: normal affect, normal mood. Absent: anxious, flat affect, manic, homicidal ideation, suicidal ideation - Skin Skin exam: Present: warm, dry, intact, normal color. Absent: rash ED Course Vital Signs 08/04/18 08/04/18 08:21 08:44 Temperature 97.7 F Pulse Rate 93 H Respiratory 20 Rate Blood Pressure 134/82 [Right] O2 Sat by Pulse 98 Oximetry - Reevaluation(s) Reevaluation #1: 08/04/18 09:55 Patient's throughout ED course ED Recheck MDM - Medical Decision Making This is a 47-year-old male here requesting a refill on his medication for mental health, blood pressure and asthma. He is stable and in no acute distress mentally or physically. The cemented notes for details Assessment/plan 1: Mental health disorders-refill given for Tegretol, Seroquel, BuSpar, Abilify. 2: Chronic hypertension-patient given a refill for lisinopril, HCTZ and Norvasc [id number] for albuterol Patient is stable and in no acute distress. I discussed with him that he needs to schedule an appointment today for [facility] and he said he has a caregiver; that he needs to schedule it when his caregiver can take him as we cannot prescribe another dose of mental health medication for him because the second time. He voices understanding and any said he will call today. Discharged home in stable condition with prescription for Terazol, cervical, BuSpar, Abilify, lisinopril, HCTZ, albuterol and Norvasc. Critical care attestation.: If time is entered above; I have spent that time in minutes in the direct care of this critically ill patient, excluding procedure time. ED Disposition Clinical Impression: Encounter for medication refill Disposition: DC-01 TO HOME OR SELFCARE Is pt being admited?: No Does the pt Need Aspirin: No Condition: Stable Instructions: Bipolar Disorder (ED), Depression (ED), Heart Healthy Diet (ED), DASH Eating Plan (ED), Hypertension (ED), Asthma (ED) Additional Instructions: Please see medication as prescribed. You will need to follow-up at [facility] for treatment by psychiatrist and medication management. If you feel depressed or suicidal you need to return to the emergency room Prescriptions: QUEtiapine [SEROquel] 800 mg PO QHS #21 tablet ALBUTEROL Inhaler(NF) [VENTOLIN Inhaler(NF)] 1 puff IH Q6H PRN #1 inha PRN Reason: wheezing and cough amLODIPine [Norvasc] 5 mg PO DAILY 30 Days #30 tab ARIPiprazole [Abilify TAB] 5 mg PO DAILY 15 Days #45 tab busPIRone [Buspar] 5 mg PO QDAY 15 Days #15 tablet carBAMazepine [TEGretol] 200 mg PO Q12H 15 Days #30 tablet hydroCHLOROthiazide [HCTZ] 25 mg PO QDAY 15 Days #30 tablet Lisinopril [Zestril TAB] 20 mg PO QDAY #30 tablet Referrals: RENEA DOMÍNGUEZHANCOCK MD JULISSA [Primary Care Provider] - 3-5 Days [facility] [Outside] - 08/06/18
== END 2018-08-04 10:18 | disposition home or self-care (01) ==
LOC: ED 08:17
CPT/HCPCS: 99282

== ENCOUNTER 2018-12-25 23:07 | Emergency (ER) | payer MEDICARE ==
[2018-12-25 23:52] LABS: Basophils # (Auto) 0.1 K/mm3 (0.0-0.1); Basophils % (Auto) 0.4 % (0.0-1.8); Eosinophils % (Auto) 0.2 % (0.0-4.3); Hematocrit 47.3 % (35.5-45.6); Hemoglobin 16.1 gm/dl (11.8-15.2); Lymphocytes # (Auto) 2.9 K/mm3 (1.2-5.4); Lymphocytes % (Auto) 24.5 % (13.4-35.0); Mean Corpuscular HGB Conc 34 % (32-34); Mean Corpuscular Volume 93 fl (84-94); Monocytes # (Auto) 0.8 K/mm3 (0.0-0.8); Monocytes % (Auto) 7.2 % (0.0-7.3); Red Blood Count 5.07 M/mm3 (3.65-5.03); Red Cell Distribution Width 13.8 % (13.2-15.2)
[2018-12-26] LABS: Platelet Count 252 K/mm3 (140-440)
[2018-12-26 00:03] LABS: BUN/Creatinine Ratio 10; Blood Urea Nitrogen 9 mg/dL (9-20); Calcium 9.3 mg/dL (8.4-10.2); Hemolysis Index 9
[2018-12-26 00:21] LABS: Amphetamine Screen,Urine PRESUMPTIVE NEGATIVE; Benzodiazepines Screen,Urine PRESUMPTIVE NEGATIVE; Cannabinoid Screen,Urine PRESUMPTIVE NEGATIVE; Cocaine Screen,Urine PRESUMPTIVE NEGATIVE; Methadone Screen,Urine PRESUMPTIVE NEGATIVE; Opiate Screen,Urine PRESUMPTIVE NEGATIVE
--- NOTE | 2018-12-26 00:22 | Emergency Department Report ---
ED Psych HPI - General Chief Complaint: Psych Stated Complaint: MH EVAL Time Seen by Provider: 12/26/18 00:07 Source: patient Mode of arrival: Ambulatory - History of Present Illness Initial Comments: Patient is a 48-year-old male presents to emergency room with complaints of wan ting to kill his landlord with a hammer and then kill himself with a hammer. Patient states these thoughts are more frequent. Patient states he got an apartment with his landlord. MD Complaint: suicidal ideation, feels depressed -: Sudden Associated Psychiatric Symptoms: depression, suicidal ideation, homicidal ideation, racing thoughts History of same: Yes Quality: constant Improves With: none Worsens With: none Associated Symptoms: denies other symptoms. denies: confusion, headache, shortness of breath, nausea, vomiting, syncope, insomnia If Self Harm: admits thoughts of, has plan - Related Data Previous Rx's Medication Instructions Recorded Last Taken Type Depakote 500 mg PO QAM #30 11/06/16 Unknown Rx Divalproex ER [Depakote ER] 1,000 mg PO QPM #30 tablet 11/06/16 Unknown Rx Duloxetine HCl [Cymbalta] 60 mg PO DAILY #7 capsule. 01/05/17 Unknown Rx Permethrin 5% [Acticin 5% CREAM] 1 applicatio TP ONCE #2 tube 01/05/17 Unknown Rx hydrOXYzine PAMOATE [Vistaril] 50 mg PO TID #21 capsule 01/05/17 Unknown Rx ALBUTEROL Inhaler(NF) [VENTOLIN 1 puff IH Q6H PRN #1 inha 08/04/18 Unknown Rx Inhaler(NF)] ARIPiprazole [Abilify TAB] 5 mg PO DAILY 15 Days #45 tab 08/04/18 Unknown Rx Lisinopril [Zestril TAB] 20 mg PO QDAY #30 tablet 08/04/18 Unknown Rx QUEtiapine [SEROquel] 800 mg PO QHS #21 tablet 08/04/18 Unknown Rx amLODIPine [Norvasc] 5 mg PO DAILY 30 Days #30 tab 08/04/18 Unknown Rx busPIRone [Buspar] 5 mg PO QDAY 15 Days #15 tablet 08/04/18 Unknown Rx carBAMazepine [TEGretol] 200 mg PO Q12H 15 Days #30 tablet 08/04/18 Unknown Rx hydroCHLOROthiazide [HCTZ] 25 mg PO QDAY 15 Days #30 tablet 08/04/18 Unknown Rx Allergies Allergy/AdvReac Type Severity Reaction Status Date / Time benztropine [From Cogentin] Allergy Itching Verified 08/04/18 08:18 chlorpromazine HCl Allergy Itching Verified 08/04/18 08:18 [From Thorazine] fluoxetine HCl [From Prozac] Allergy Swelling Verified 08/04/18 08:18 haloperidol [From Haldol] Allergy Itching Verified 08/04/18 08:18 haloperidol lactate Allergy Itching Verified 08/04/18 08:18 [From Haldol] propranolol HCl Allergy Itching Verified 08/04/18 08:18 [From Inderal LA] ED Review of Systems ROS: Stated complaint: MH EVAL Other details as noted in HPI Constitutional: denies: chills, fever Eyes: denies: eye pain, eye discharge, vision change ENT: denies: ear pain, throat pain Respiratory: denies: cough, shortness of breath, wheezing Cardiovascular: denies: chest pain, palpitations Endocrine: no symptoms reported Gastrointestinal: denies: abdominal pain, nausea, diarrhea Genitourinary: denies: urgency, dysuria Musculoskeletal: denies: back pain, joint swelling, arthralgia Skin: denies: rash, lesions Neurological: denies: headache, weakness, paresthesias Psychiatric: denies: anxiety, depression Hematological/Lymphatic: denies: easy bleeding, easy bruising ED Past Medical Hx - Past Medical History Previous Medical History?: Yes Hx Hypertension: Yes (out of medication) Hx Arthritis: Yes Hx Psychiatric Treatment: Yes (depression, bi-polar, schizophrenia) Additional medical history: high cholesterol - Surgical History Past Surgical History?: No - Family History Family history: no significant - Social History Smoking Status: Current Every Day Smoker Substance Use Type: Alcohol - Medications Home Medications: Home Medications Medication Instructions Recorded Confirmed Last Taken Type Depakote 500 mg PO QAM #30 11/06/16 12/26/18 Unknown Rx Divalproex ER [Depakote ER] 1,000 mg PO QPM #30 tablet 11/06/16 12/26/18 Unknown Rx Duloxetine HCl [Cymbalta] 60 mg PO DAILY #7 capsule. 01/05/17 12/26/18 Unknown Rx Permethrin 5% [Acticin 5% CREAM] 1 applicatio TP ONCE #2 tube 01/05/17 12/26/18 Unknown Rx hydrOXYzine PAMOATE [Vistaril] 50 mg PO TID #21 capsule 01/05/17 12/26/18 Unknown Rx ALBUTEROL Inhaler(NF) [VENTOLIN 1 puff IH Q6H PRN #1 inha 08/04/18 12/26/18 Unknown Rx Inhaler(NF)] ARIPiprazole [Abilify TAB] 5 mg PO DAILY 15 Days #45 tab 08/04/18 12/26/18 Unknown Rx Lisinopril [Zestril TAB] 20 mg PO QDAY #30 tablet 08/04/18 12/26/18 Unknown Rx QUEtiapine [SEROquel] 800 mg PO QHS #21 tablet 08/04/18 12/26/18 Unknown Rx amLODIPine [Norvasc] 5 mg PO DAILY 30 Days #30 tab 08/04/18 12/26/18 Unknown Rx busPIRone [Buspar] 5 mg PO QDAY 15 Days #15 tablet 08/04/18 12/26/18 Unknown Rx carBAMazepine [TEGretol] 200 mg PO Q12H 15 Days #30 tablet 08/04/18 12/26/18 Unknown Rx hydroCHLOROthiazide [HCTZ] 25 mg PO QDAY 15 Days #30 tablet 08/04/18 12/26/18 Unknown Rx ED Physical Exam - General Limitations: No Limitations General appearance: alert, in no apparent distress - Head Head exam: Present: atraumatic, normocephalic - Eye Eye exam: Present: normal appearance, PERRL - ENT ENT exam: Present: mucous membranes moist - Neck Neck exam: Present: normal inspection - Respiratory Respiratory exam: Present: normal lung sounds bilaterally. Absent: respiratory distress - Cardiovascular Cardiovascular Exam: Present: regular rate, normal rhythm. Absent: systolic murmur, diastolic murmur, rubs, gallop - GI/Abdominal GI/Abdominal exam: Present: soft, normal bowel sounds - Rectal Rectal exam: Present: deferred - Extremities Exam Extremities exam: Present: normal inspection - Back Exam Back exam: Present: normal inspection - Neurological Exam Neurological exam: Present: alert, oriented X3 - Psychiatric Psychiatric exam: Present: depressed, homicidal ideation, suicidal ideation - Skin Skin exam: Present: warm, dry, intact, normal color. Absent: rash ED Course Vital Signs 12/25/18 12/25/18 23:15 23:22 Temperature 97.8 F 97.8 F Pulse Rate 87 82 Respiratory 18 18 Rate Blood Pressure 174/105 174/105 O2 Sat by Pulse 100 100 Oximetry - Reevaluation(s) Reevaluation #1: Patient place 1013 for homicidal and suicidal ideations 12/26/18 00:22 Reevaluation #2: Discussed all results with patient. Patient will remain in the ER on a 1013 until accepted into appropriate psychiatric facility.. Patient agrees to plan of care. 12/26/18 00:23 ED Medical Decision Making - Lab Data Result diagrams: 12/25/18 23:32 12/25/18 23:32 Critical care attestation.: If time is entered above; I have spent that time in minutes in the direct care of this critically ill patient, excluding procedure time. ED Disposition Clinical Impression: Suicidal ideation, Homicidal ideation, Medical clearance for psychiatric admission Disposition: DC/TX-65 PSY HOSP/PSY UNIT Is pt being admited?: No Does the pt Need Aspirin: No Condition: Stable Additional Instructions: Patient is medically cleared Referrals: CHYNA MCELROY MD [Primary Care Provider] - 3-5 Days Time of Disposition: 00:24
[2018-12-26 00:32] LABS: Bilirubin,Urine NEG (Negative); Blood,Urine NEG (Negative); Color,Urine Yellow (Yellow); Mucus,Urine 3+ /HPF; Urobilinogen,Urine < 2.0 mg/dL (<2.0)
[2018-12-26] MEDS ORDERED: NON-FORMULARY (Aripiprazole [Abilify Tab] 5 MG) PO SCH (10:00)
[2018-12-26] MEDS ORDERED: DEPAKOTE 500 MG PO SCH (10:00)
[2018-12-26] MEDS ORDERED: NORVASC PO SCH (10:00)
[2018-12-26] MEDS ORDERED: ZESTRIL PO SCH (10:00)
[2018-12-26] MEDS ORDERED: ABILIFY PO SCH (10:00)
[2018-12-26] MEDS ORDERED: BUSPAR PO SCH (10:00)
[2018-12-26] MEDS ORDERED: HCTZ PO SCH (10:00)
[2018-12-26] MEDS ORDERED: XYLOCAINE 1% 20 mL ONE (13:50)
[2018-12-26] MEDS ORDERED: AUGMENTIN 875 MG PO SCH (14:00)
[2018-12-26] MEDS ORDERED: XYLOCAINE 1% 20 mL INFILTRATI ONE (14:36)
[2018-12-26] MEDS ORDERED: NACL 0.9% 500 ML IR ONE (14:37)
[2018-12-26] MEDS ORDERED: NACL 0.9% IR ONE (14:38)
[2018-12-26] MEDS ORDERED: BOOSTRIX IM ONE (15:05)
--- NOTE | 2018-12-26 15:05 | Emergency Department Report ---
Blank Doc - Documentation Documentation: I was asked to see this patient after the patient bit his own arm and caused a laceration of the left midforearm. The patient already had some type of a sore there and his actions caused a 3.5 inch laceration. There was about a 1.5 cm gap. It was mostly linear and went down to the subcutaneous fat. There does not appear to be any muscle or tendon involvement. He has full range of motion of his left upper extremity including the fingers, hand, wrist and elbow. He is neurovascularly intact. He has been placed on Augmentin twice daily. I do not think that there is any high suspicion for a fracture and therefore I do not feel that x-ray imaging is necessary. Tetanus booster will be given. The area was cleaned with 500 mL of normal saline. The laceration was locally anesthetized with 8 mL's of 1% lidocaine without epinephrine. The patient had 9 simple interrupted sutures and one horizontal mattress suture using 3-0 Prolene. There was good approximation but it was not completely approximated in the middle, the area with the patient had the previous sore, as there does appear to be some level of a skin tear/avulsion with mild volume loss. After the area was sutured, the patient was once again evaluated and is still neurovascularly intact with full range of motion.
--- NOTE | 2018-12-26 17:24 | Consultation ---
History of Present Illness - Reason for Consult Consult date: 12/26/18 Reason for consult: psychiatric evaluation - Chief Complaint Chief complaint: "He did it." He says his stuffed animal bit his arm. He then says, "I was agitated." - History of Present Psychiatric Illness 48 y.o. white male presenting to [facility] for complaints of wanting to kill his landlord with a hammer and then kill himself with a hammer. Today patient is calm and is focused on where he is going when he leaves. He bit himself requiring medical intervention, while in the ER. He denies recreational drug use and alcohol consumption (etoh). - Past Medical History Past Medical History: hypertension Past Surgical History: No surgical history - past Psychiatric treatment and history Psych: Bipolar psychiatric treatment history: Multiple inpatient psy settings. Denies a fam psy hx. - Social History Social history: olives in an apartment Medications and Allergies Allergies Allergy/AdvReac Type Severity Reaction Status Date / Time benztropine [From Cogentin] Allergy Itching Verified 08/04/18 08:18 chlorpromazine HCl Allergy Itching Verified 08/04/18 08:18 [From Thorazine] fluoxetine HCl [From Prozac] Allergy Swelling Verified 08/04/18 08:18 haloperidol [From Haldol] Allergy Itching Verified 08/04/18 08:18 haloperidol lactate Allergy Itching Verified 08/04/18 08:18 [From Haldol] propranolol HCl Allergy Itching Verified 08/04/18 08:18 [From Inderal LA] Home Medications Medication Instructions Recorded Confirmed Last Taken Type Depakote 500 mg PO QAM #30 11/06/16 12/26/18 Unknown Rx Divalproex ER [Depakote ER] 1,000 mg PO QPM #30 tablet 11/06/16 12/26/18 Unknown Rx Duloxetine HCl [Cymbalta] 60 mg PO DAILY #7 capsule. 01/05/17 12/26/18 Unknown Rx Permethrin 5% [Acticin 5% CREAM] 1 applicatio TP ONCE #2 tube 01/05/17 12/26/18 Unknown Rx hydrOXYzine PAMOATE [Vistaril] 50 mg PO TID #21 capsule 01/05/17 12/26/18 Unknown Rx ALBUTEROL Inhaler(NF) [VENTOLIN 1 puff IH Q6H PRN #1 inha 08/04/18 12/26/18 Unknown Rx Inhaler(NF)] ARIPiprazole [Abilify TAB] 5 mg PO DAILY 15 Days #45 tab 08/04/18 12/26/18 Unknown Rx Lisinopril [Zestril TAB] 20 mg PO QDAY #30 tablet 08/04/18 12/26/18 Unknown Rx QUEtiapine [SEROquel] 800 mg PO QHS #21 tablet 08/04/18 12/26/18 Unknown Rx amLODIPine [Norvasc] 5 mg PO DAILY 30 Days #30 tab 08/04/18 12/26/18 Unknown Rx busPIRone [Buspar] 5 mg PO QDAY 15 Days #15 tablet 08/04/18 12/26/18 Unknown Rx carBAMazepine [TEGretol] 200 mg PO Q12H 15 Days #30 tablet 08/04/18 12/26/18 Unknown Rx hydroCHLOROthiazide [HCTZ] 25 mg PO QDAY 15 Days #30 tablet 08/04/18 12/26/18 Unknown Rx Amoxicillin/Potassium Clav 1 each PO BID #14 tablet 12/26/18 Unknown Rx [Augmentin 875-125 Tablet] Active Meds: Active Medications Amlodipine Besylate (Norvasc) 5 mg PO DAILY [facility] Last Admin: 12/26/18 10:03 Dose: 5 mg Documented by: Amoxicillin/Clavulanate Potassium (Augmentin 875 Mg) 1 each PO BID [facility] Last Admin: 12/26/18 14:45 Dose: 1 each Documented by: Aripiprazole (Abilify) 5 mg PO QDAY [facility] Last Admin: 12/26/18 10:02 Dose: 5 mg Documented by: Buspirone HCl (Buspar) 5 mg PO QDAY [facility] Last Admin: 12/26/18 10:03 Dose: 5 mg Documented by: Divalproex Sodium (Depakote Er) 1,000 mg PO QHS [facility] Divalproex Sodium (Depakote Dr) 500 mg PO QAM [facility] Last Admin: 12/26/18 10:03 Dose: 500 mg Documented by: Hydrochlorothiazide (Hctz) 25 mg PO QDAY [facility] Last Admin: 12/26/18 10:03 Dose: 25 mg Documented by: Lisinopril (Zestril) 20 mg PO QDAY [facility] Last Admin: 12/26/18 10:03 Dose: 20 mg Documented by: Mental Status Exam - Vital signs Last Vital Signs Temp 98.1 F 12/26/18 12:03 Pulse 86 12/26/18 15:29 Resp 20 12/26/18 15:29 BP 131/74 12/26/18 15:29 Pulse Ox 100 12/26/18 15:29 - Exam Narrative exam: Appearance: calm, cooperative Behavior: regular eye contact, holding stuffed animal Speech: regular rate and tone Mood: "agitated" Affect: constricted Thought Process: circumstantial Thought Content: denies AVH. reports SI/HI Motor Activity: ambulatory Cognition: A/Ox 3 Insight: variable Judgment: variable Results Result Diagrams: 12/25/18 23:32 12/25/18 23:32 Abnormal lab results 12/25/18 12/25/18 12/25/18 Range/Units 23:32 23:32 23:32 WBC 11.6 H (4.5-11.0) K/mm3 RBC 5.07 H (3.65-5.03) M/mm3 Hgb 16.1 H (11.8-15.2) gm/dl Hct 47.3 H (35.5-45.6) % Seg Neutrophils # 7.9 H (1.8-7.7) K/mm3 Ur Specific [place] (1.003-1.030) Salicylates < 0.3 L (2.8-20.0) mg/dL Acetaminophen < 5.0 L (10.0-30.0) ug/mL 12/25/18 Range/Units 23:33 WBC (4.5-11.0) K/mm3 RBC (3.65-5.03) M/mm3 Hgb (11.8-15.2) gm/dl Hct (35.5-45.6) % Seg Neutrophils # (1.8-7.7) K/mm3 Ur Specific [place] 1.031 H (1.003-1.030) Salicylates (2.8-20.0) mg/dL Acetaminophen (10.0-30.0) ug/mL All other labs normal. Assessment and Plan Assessment and plan: Impression: History of Bipolar DO. Unspecified Mood DO. Patient endorsed SI's with a plan and has a self inflicted bite wound on his left arm requiring medical intervention. It is currently wrapped. DDx: R/O MDD, r/o developmental delay Recommendation/Plan: Continue 1013 dispo: [place] [facility] [place] Continue meds per ER physician until transfer will staff with Dr. Mcdowell
[2018-12-26 17:39] VITALS: BP 140/97
== END 2018-12-26 17:47 ==
LOC: ED 23:07 → EEVIPCON 23:07 → ED 12-26 17:47
DX: S51.812A Laceration without foreign body of left forearm, initial encounter (principal); F32.9 Major depressive disorder, single episode, unspecified; F20.9 Schizophrenia, unspecified; R45.851 Suicidal ideations; R45.850 Homicidal ideations; I10 Essential (primary) hypertension; M19.90 Unspecified osteoarthritis, unspecified site; E78.00 Pure hypercholesterolemia, unspecified; F17.200 Nicotine dependence, unspecified, uncomplicated; Z79.899 Other long term (current) drug therapy; Z88.5 Allergy status to narcotic agent; Z88.8 Allergy status to other drugs, medicaments and biological substances; X83.8XXA Intentional self-harm by other specified means, initial encounter; Y93.89 Activity, other specified; Y92.89 Other specified places as the place of occurrence of the external cause; Y99.8 Other external cause status
CPT/HCPCS: 36415; 80048; 80307; 80320; 81001; 85025; 90471; 90715; G0480

== ENCOUNTER 2019-04-14 08:34 | Emergency (ER) | payer MEDICARE ==
[2019-04-14 08:43] VITALS: BP 155/97
--- NOTE | 2019-04-14 09:42 | Emergency Department Report ---
ED Recheck HPI - General Chief Complaint: Recheck/Abnormal Lab/Rx Stated Complaint: MED REFILL Time Seen by Provider: 04/14/19 08:49 Source: patient Mode of arrival: Ambulatory Limitations: No Limitations - History of Present Illness Initial Comments: This is a 48-year-old male who presents to the emergency room for medication refills. Past medical history of hypertension, schizophrenia, and bipolar. Patient states he ran out of blood pressure medication for 5 months ago. He just found a new primary care doctor to follow-up with. His first appointment is next month. He is requesting refills on blood pressure medication and albuterol inhaler. Patient states he is a current smoker with a smoker's cough. He denies chest pain, palpitations, wheezing, shortness of breath, nausea or vomiting, dizziness, or visual changes. MD Complaint: medication refill request Onset/Timin -: month(s) Returns Today for: request for prescription Symptoms Since Prior Visit: no new symptoms Context: ran out of medication Associated Symptoms: none - Related Data Home Medications Medication Instructions Recorded Confirmed Last Taken Seven Points Carbonate [Seven Points 450 mg PO BID 04/14/19 04/14/19 04/14/19 08:00 Carbonate ER] 450 Quetiapine Fumarate [SEROquel] 300 mg PO QHS 04/14/19 04/14/19 04/14/19 Previous Rx's Medication Instructions Recorded Last Taken Type ALBUTEROL Inhaler (OR & NICU) 1 puff IH QID PRN #1 inha 04/14/19 Unknown Rx [ProAir HFA Inhaler] Amlodipine Besylate [Norvasc] 5 mg PO QDAY #30 tab 04/14/19 Unknown Rx Lisinopril [Zestril TAB] 10 mg PO QDAY #30 tab 04/14/19 Unknown Rx hydroCHLOROthiazide [HCTZ] 25 mg PO QDAY #30 tab 04/14/19 Unknown Rx Allergies Allergy/AdvReac Type Severity Reaction Status Date / Time benztropine [From Cogentin] Allergy Itching Verified 08/04/18 08:18 chlorpromazine HCl Allergy Itching Verified 08/04/18 08:18 [From Thorazine] fluoxetine HCl [From Prozac] Allergy Swelling Verified 08/04/18 08:18 haloperidol [From Haldol] Allergy Itching Verified 08/04/18 08:18 haloperidol lactate Allergy Itching Verified 08/04/18 08:18 [From Haldol] propranolol HCl Allergy Itching Verified 08/04/18 08:18 [From Inderal LA] ED Review of Systems ROS: Stated complaint: MED REFILL Other details as noted in HPI Constitutional: denies: chills, fever Respiratory: denies: cough, shortness of breath, wheezing Cardiovascular: denies: chest pain, palpitations Gastrointestinal: denies: abdominal pain, nausea, diarrhea Skin: denies: rash, lesions Neurological: denies: headache, weakness, paresthesias Psychiatric: denies: anxiety, depression ED Past Medical Hx - Past Medical History Hx Hypertension: Yes (out of medication) Hx Arthritis: Yes Hx Psychiatric Treatment: Yes (depression, bi-polar, schizophrenia) Additional medical history: high cholesterol - Surgical History Past Surgical History?: No - Social History Smoking Status: Current Every Day Smoker Substance Use Type: None - Medications Home Medications: Home Medications Medication Instructions Recorded Confirmed Last Taken Type ALBUTEROL Inhaler (OR & NICU) 1 puff IH QID PRN #1 inha 04/14/19 Unknown Rx [ProAir HFA Inhaler] Amlodipine Besylate [Norvasc] 5 mg PO QDAY #30 tab 04/14/19 Unknown Rx Lisinopril [Zestril TAB] 10 mg PO QDAY #30 tab 04/14/19 Unknown Rx Seven Points Carbonate [Seven Points 450 mg PO BID 04/14/19 04/14/19 04/14/19 08:00 History Carbonate ER] 450 Quetiapine Fumarate [SEROquel] 300 mg PO QHS 04/14/19 04/14/19 04/14/19 History hydroCHLOROthiazide [HCTZ] 25 mg PO QDAY #30 tab 04/14/19 Unknown Rx ED Physical Exam - General Limitations: No Limitations General appearance: alert, in no apparent distress - Respiratory Respiratory exam: Present: normal lung sounds bilaterally. Absent: respiratory distress - Cardiovascular Cardiovascular Exam: Present: regular rate, normal rhythm. Absent: systolic murmur, diastolic murmur, rubs, gallop - GI/Abdominal GI/Abdominal exam: Present: soft, normal bowel sounds - Neurological Exam Neurological exam: Present: alert, oriented X3, normal gait - Psychiatric Psychiatric exam: Present: normal affect, normal mood - Skin Skin exam: Present: warm, dry, intact, normal color. Absent: rash ED Course Vital Signs 04/14/19 08:42 Temperature 97.7 F Pulse Rate 101 H Respiratory 16 Rate Blood Pressure 155/97 O2 Sat by Pulse 96 Oximetry ED Recheck MDM - Differential Diagnosis Prescription Refill(s) - Medical Decision Making Patient was examined by me. Patient is nontoxic appearing and stable. Vitals are stable. No acute symptoms. We'll refill blood pressure medication and inhaler. Start lisinopril, hydrochlorothiazide, Norvasc, albuterol. Instructed to follow-up with a primary care doctor for refills.. Follow up with PCP. Patient discharged home in stable condition. Critical care attestation.: If time is entered above; I have spent that time in minutes in the direct care of this critically ill patient, excluding procedure time. ED Disposition Clinical Impression: Encounter for medication refill Disposition: DC- TO HOME OR SELFCARE Is pt being admited?: No Condition: Stable Instructions: Hypertension (ED), Chronic Cough (ED) Additional Instructions: Follow up with a primary care doctor for further refills. Prescriptions: hydroCHLOROthiazide [HCTZ] 25 mg PO QDAY #30 tab Amlodipine Besylate [Norvasc] 5 mg PO QDAY #30 tab ALBUTEROL Inhaler (OR & NICU) [ProAir HFA Inhaler] 1 puff IH QID PRN #1 inha PRN Reason: Shortness Of Breath Lisinopril [Zestril TAB] 10 mg PO QDAY #30 tab Referrals: [facility] [Outside] - 3-5 Days [facility] [Outside] - 3-5 Days [facility] [Outside] - 3-5 Days Time of Disposition: 09:48
== END 2019-04-14 09:52 | disposition home or self-care (01) ==
LOC: ED 08:34
DX: I10 Essential (primary) hypertension (principal); J45.909 Unspecified asthma, uncomplicated; F31.9 Bipolar disorder, unspecified; F20.9 Schizophrenia, unspecified; E78.00 Pure hypercholesterolemia, unspecified; M19.90 Unspecified osteoarthritis, unspecified site; F17.200 Nicotine dependence, unspecified, uncomplicated; Z76.0 Encounter for issue of repeat prescription; Z79.899 Other long term (current) drug therapy; Z88.8 Allergy status to other drugs, medicaments and biological substances
CPT/HCPCS: 99282

== ENCOUNTER 2019-04-21 16:10 | Emergency (ER) | payer MEDICARE ==
[2019-04-21 17:06] VITALS: BP 153/102
== END 2019-04-21 18:00 | disposition left against medical advice (07) ==
LOC: ED 16:10
DX: F99 Mental disorder, not otherwise specified (principal); Z53.21 Procedure and treatment not carried out due to patient leaving prior to being seen by health care provider

== ENCOUNTER 2019-06-11 00:11 | Emergency (ER) | payer MEDICARE ==
[2019-06-11] MEDS ORDERED: AMOXICILLIN/K CLAV 875/125MG TAB PO ONE (00:55)
[2019-06-11] MEDS ORDERED: TETANUS,DIPH,PERTUSS(ACELL) VACCINE 0.5 ML SYRINGE IM ONE ×2 (00:55→03:32)
[2019-06-11 02:10] LABS: Basophils % (Auto) 0.5 % (0.0-1.8); Eosinophils # (Auto) 0.1 K/mm3 (0.0-0.4); Eosinophils % (Auto) 0.8 % (0.0-4.3); Hematocrit 43.3 % (35.5-45.6); Hemoglobin 14.5 gm/dl (11.8-15.2); Lymphocytes # (Auto) 2.4 K/mm3 (1.2-5.4); Lymphocytes % (Auto) 25.8 % (13.4-35.0); Mean Corpuscular HGB Conc 33 % (32-34); Mean Corpuscular Volume 93 fl (84-94); Monocytes # (Auto) 0.7 K/mm3 (0.0-0.8); Monocytes % (Auto) 7.7 % (0.0-7.3); Platelet Count 211 K/mm3 (140-440); Red Blood Count 4.63 M/mm3 (3.65-5.03); Red Cell Distribution Width 12.7 % (13.2-15.2)
[2019-06-11 02:34] LABS: BUN/Creatinine Ratio 27; Blood Urea Nitrogen 24 mg/dL (9-20); Calcium 8.9 mg/dL (8.4-10.2); Hemolysis Index 11
[2019-06-11] MEDS ORDERED: AMOXICILLIN/K CLAV 875/125MG TAB ONE (03:32)
--- NOTE | 2019-06-11 05:06 | Emergency Department Report ---
ED Psych HPI - General Chief Complaint: Psych Stated Complaint: MH EVAL/SUICIDAL Time Seen by Provider: 06/11/19 00:54 Source: EMS Mode of arrival: Ambulatory - History of Present Illness Initial Comments: Patient's 48-year-old male who is presenting with suicidal ideations. Patient states he is very unhappy with where he is living and the patient states he's been having thoughts of killing himself. Patient did inflects self harm upon himself bit himself on the left upper extremity. Patient denies auditory or visual hallucinations. - Related Data Home Medications Medication Instructions Recorded Confirmed Last Taken Sinclair Carbonate [Sinclair 450 mg PO BID 04/14/19 06/11/19 04/14/19 08:00 Carbonate ER] 450 Quetiapine Fumarate [SEROquel] 300 mg PO QHS 04/14/19 06/11/19 04/14/19 Previous Rx's Medication Instructions Recorded Last Taken Type ALBUTEROL Inhaler (OR & NICU) 1 puff IH QID PRN #1 inha 04/14/19 Unknown Rx [ProAir HFA Inhaler] Amlodipine Besylate [Norvasc] 5 mg PO QDAY #30 tab 04/14/19 Unknown Rx hydroCHLOROthiazide [HCTZ] 25 mg PO QDAY #30 tab 04/14/19 Unknown Rx lisinopriL [Zestril TAB] 10 mg PO QDAY #30 tab 04/14/19 Unknown Rx Allergies Allergy/AdvReac Type Severity Reaction Status Date / Time benztropine [From Cogentin] Allergy Itching Verified 08/04/18 08:18 chlorpromazine HCl Allergy Itching Verified 08/04/18 08:18 [From Thorazine] fluoxetine HCl [From Prozac] Allergy Swelling Verified 08/04/18 08:18 haloperidol [From Haldol] Allergy Itching Verified 08/04/18 08:18 haloperidol lactate Allergy Itching Verified 08/04/18 08:18 [From Haldol] propranolol HCl Allergy Itching Verified 08/04/18 08:18 [From Inderal LA] ED Review of Systems ROS: Stated complaint: MH EVAL/SUICIDAL Other details as noted in HPI Comment: All other systems reviewed and negative ED Past Medical Hx - Past Medical History Hx Hypertension: Yes (out of medication) Hx Arthritis: Yes Hx Psychiatric Treatment: Yes (depression, bi-polar, schizophrenia) Additional medical history: high cholesterol - Social History Smoking Status: Current Every Day Smoker Substance Use Type: None - Medications Home Medications: Home Medications Medication Instructions Recorded Confirmed Last Taken Type ALBUTEROL Inhaler (OR & NICU) 1 puff IH QID PRN #1 inha 04/14/19 06/11/19 Unknown Rx [ProAir HFA Inhaler] Amlodipine Besylate [Norvasc] 5 mg PO QDAY #30 tab 04/14/19 06/11/19 Unknown Rx Sinclair Carbonate [Sinclair 450 mg PO BID 04/14/19 06/11/19 04/14/19 08:00 History Carbonate ER] 450 Quetiapine Fumarate [SEROquel] 300 mg PO QHS 04/14/19 06/11/19 04/14/19 History hydroCHLOROthiazide [HCTZ] 25 mg PO QDAY #30 tab 04/14/19 06/11/19 Unknown Rx lisinopriL [Zestril TAB] 10 mg PO QDAY #30 tab 04/14/19 06/11/19 Unknown Rx ED Physical Exam - General Limitations: No Limitations General appearance: alert, in no apparent distress - Head Head exam: Present: atraumatic, normocephalic - Eye Eye exam: Present: normal appearance - ENT ENT exam: Present: mucous membranes moist - Neck Neck exam: Present: normal inspection - Respiratory Respiratory exam: Present: normal lung sounds bilaterally. Absent: respiratory distress, wheezes, rales, rhonchi - Cardiovascular Cardiovascular Exam: Present: regular rate, normal rhythm. Absent: systolic murmur, diastolic murmur, rubs, gallop - GI/Abdominal GI/Abdominal exam: Present: soft, normal bowel sounds. Absent: distended, tenderness, guarding - Rectal Rectal exam: Present: deferred - Extremities Exam Extremities exam: Present: normal inspection - Back Exam Back exam: Present: normal inspection - Neurological Exam Neurological exam: Present: alert, oriented X3 - Psychiatric Psychiatric exam: Present: normal affect, normal mood - Skin Skin exam: Present: warm, dry, intact, normal color, other (patient with a human bite to the left forearm. There is no laceration or need for repair). Absent: rash ED Course Vital Signs 06/11/19 00:28 Temperature 98.7 F Pulse Rate 107 H Respiratory 18 Rate Blood Pressure 134/92 [Left] O2 Sat by Pulse 99 Oximetry ED Medical Decision Making - Lab Data Result diagrams: 06/11/19 01:32 06/11/19 01:32 Lab Results 06/11/19 06/11/19 06/11/19 Range/Units 01:32 01:32 01:32 WBC 9.3 (4.5-11.0) K/mm3 RBC 4.63 (3.65-5.03) M/mm3 Hgb 14.5 (11.8-15.2) gm/dl Hct 43.3 (35.5-45.6) % MCV 93 (84-94) fl MCH 31 (28-32) pg MCHC 33 (32-34) % RDW 12.7 L (13.2-15.2) % Plt Count 211 (140-440) K/mm3 Lymph % (Auto) 25.8 (13.4-35.0) % Wilson % (Auto) 7.7 H (0.0-7.3) % Eos % (Auto) 0.8 (0.0-4.3) % Baso % (Auto) 0.5 (0.0-1.8) % Lymph # 2.4 (1.2-5.4) K/mm3 Wilson # 0.7 (0.0-0.8) K/mm3 Eos # 0.1 (0.0-0.4) K/mm3 Baso # 0.0 (0.0-0.1) K/mm3 Seg Neutrophils % 65.2 (40.0-70.0) % Seg Neutrophils # 6.1 (1.8-7.7) K/mm3 Sodium 142 (137-145) mmol/L Potassium 3.9 (3.6-5.0) mmol/L Chloride 109.4 H (98-107) mmol/L Carbon Dioxide 22 (22-30) mmol/L Anion Gap 15 mmol/L BUN 24 H (9-20) mg/dL Creatinine 0.9 (0.8-1.5) mg/dL Estimated GFR > 60 ml/min BUN/Creatinine Ratio 27 % Glucose 132 H (75-100) mg/dL Calcium 8.9 (8.4-10.2) mg/dL Plasma/Serum Alcohol < 0.01 (0-0.07) % - Medical Decision Making Patient with human bite which is self-inflicted. Patient is pending psychiatric evaluation. Critical care attestation.: If time is entered above; I have spent that time in minutes in the direct care of this critically ill patient, excluding procedure time. ED Disposition Clinical Impression: Suicidal ideation, Human bite, Self mutilating behavior Condition: Stable Referrals: PRISCILA BUCKNER MD [Primary Care Provider] - 3-5 Days
[2019-06-11 07:12] LABS: Amphetamine Screen,Urine PRESUMPTIVE NEGATIVE; Benzodiazepines Screen,Urine PRESUMPTIVE NEGATIVE; Cannabinoid Screen,Urine PRESUMPTIVE NEGATIVE; Cocaine Screen,Urine PRESUMPTIVE NEGATIVE; Methadone Screen,Urine PRESUMPTIVE NEGATIVE; Opiate Screen,Urine PRESUMPTIVE NEGATIVE
[2019-06-11 15:27] VITALS: BP 144/94
== END 2019-06-11 18:30 ==
LOC: ED 00:11
DX: R45.851 Suicidal ideations (principal); I10 Essential (primary) hypertension; M19.90 Unspecified osteoarthritis, unspecified site; F32.89 Other specified depressive episodes; F20.89 Other schizophrenia; F17.200 Nicotine dependence, unspecified, uncomplicated; E78.00 Pure hypercholesterolemia, unspecified; Z79.899 Other long term (current) drug therapy; Z88.1 Allergy status to other antibiotic agents; Z88.8 Allergy status to other drugs, medicaments and biological substances
CPT/HCPCS: 36415; 80048; 80307; 80320; 85025; 90471; 90715; G0480

== ENCOUNTER 2020-02-23 00:14 | Inpatient (IN) | payer MEDICARE ==
[2020-02-23] MEDS ORDERED: LORazepam 2 MG/ML VIAL IM PRN (16:20)
[2020-02-23] MEDS ORDERED: MELATONIN 5 MG TAB PO PRN (16:20)
[2020-02-23] MEDS ORDERED: ZIPRASIDONE MESYLATE 20 MG VIAL IM PRN (16:20)
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
[2020-02-23] MEDS ORDERED: QUETIAPINE FUMARATE 300 MG PO SCH (22:00)
[2020-02-24] MEDS: traZODone 50 MG TAB PO SCH ×2 (07:56→21:03)
[2020-02-24] MEDS: OMEGA-3 FATTY ACIDS/FISH OIL 1 GRAM CAP PO SCH ×3 (07:56→21:02)
--- NOTE | 2020-02-24 08:11 | Progress Note ---
Subjective Date of service: 02/24/20 Principal diagnosis: Schizoaffective Disorder Subjective Comment: The patient's medical record was reviewed and the patient's progress was discussed with the nursing staff. The nurse note states the patient denies SI/HI at the moment. pt states suicidal thoughts come and go. pt states he is still depressed. pt denies AVH. During my interview with the patient this morning, he is in the bathroom. He is a/o x 3. The patient states he was admitted because "I tried to hurt myself." When asked was he suicidal at the moment, he states, "not at this very moment but it comes and goes." The patient says he "was feeling suicidal early this morning." He says "I've been to this German lady and she says she hopes I . She said some pretty hurtful things." Mr. Christopher says says, "I'm depressed and I feel like I need to be stabilized on my medication." He denies hallucinations of any kind. REVIEW OF SYSTEMS Constitutional: Negative for weight loss ENT: Negative for stridor Respiratory: Negative for cough or hemoptysis All other systems reviewed and are negative MENTAL STATUS EXAMINATION General Appearance; Dressed appropriately Behavior: Calm and cooperative. Fair eye contact Mood: depressed Affect and affective range: congruent with stated mood Thought Process: Fluent/Logical Thought Content: within reality Speech: Normal volume, Regular rate and rhythm Suicidal Ideation: Passive, Comes and goes Homicidal Ideation: Denies Hallucinations: Denies Delusions: None elicited Insight and Judgment: Limited Memory/Cognition: Normal Attention: Normal Orientation: Alert, oriented Assessment (1)Schizoaffective Disorder Current Visit: Yes Status: Acute Treatment Plan Patient will be admitted for inpatient psychiatric evaluation, medication adjustment and close monitoring The patient's behavior, mood, sleep and appetite will be closely monitored. Patient will be enrolled in individual and group therapeutic sessions and encouraged to attend. Patient will be provided with a safe and structured environment. Patient's physical health needs will be addressed by the Hospitalist. Hospitalist Consulted Labs including CBC, CMP, Lipid profile and Hemoglobin A1C ordered Social Assessment will be completed and the Class B Truck Driver will work with patient and family to ensure a suitable and safe disposition Medication adjustment will be made as clinically indicated Continue stabilization on current medication regimen Usual Wellness Taoism/Preservation: - Start Trazodone 50 mg po QHS & 50 mg po QHS PRN between 10 PM & 2 AM for insomnia - Start Melatonin 5 mg po QHS to promote circadian rhythm - Start [place]-3 for brain health, reduce impulsivity, and as adjunctive treatment for mood disorder, continue upon discharge given overall benefits. The patient agreed on the treatment plan, understood the risk, benefit, alternative treatment, potential consequence of no treatment, and gave informed consent. Estimated days: 6 Post hospital care: primary care provider, psychiatric provider Medications and Allergies Allergies Allergy/AdvReac Type Severity Reaction Status Date / Time benztropine [From Cogentin] Allergy Itching Verified 08/04/18 08:18 chlorpromazine HCl Allergy Itching Verified 08/04/18 08:18 [From Thorazine] fluoxetine HCl [From Prozac] Allergy Swelling Verified 08/04/18 08:18 haloperidol [From Haldol] Allergy Itching Verified 08/04/18 08:18 haloperidol lactate Allergy Itching Verified 08/04/18 08:18 [From Haldol] propranolol HCl Allergy Itching Verified 08/04/18 08:18 [From Inderal LA] Home Medications Medication Instructions Recorded Confirmed Last Taken Type Albuterol Mdi (or & Nicu Only) 1 puff IH QID PRN #1 inha 04/14/19 02/21/20 Unknown Rx [ProAir HFA Inhaler] Amlodipine Besylate [Norvasc] 5 mg PO QDAY #30 tab 04/14/19 02/21/20 Unknown Rx [place] Carbonate [[place] 450 mg PO BID 04/14/19 02/21/20 04/14/19 08:00 History Carbonate ER] 450 Quetiapine Fumarate [SEROquel] 300 mg PO QHS 04/14/19 02/21/20 04/14/19 History hydroCHLOROthiazide [HCTZ] 25 mg PO QDAY #30 tab 04/14/19 02/21/20 Unknown Rx lisinopriL [Zestril TAB] 10 mg PO QDAY #30 tab 04/14/19 02/21/20 Unknown Rx Active Meds: Active Medications Amlodipine Besylate (Amlodipine) 5 mg PO QDAY [facility] Fish Oil (Fish Oil) 2,000 mg PO BID [facility] Last Admin: 02/24/20 07:56 Dose: Not Given Documented by: Hydrochlorothiazide (Hctz) 25 mg PO QDAY MATIAS [place] Carbonate (Lithobid Er) 450 mg PO BID MATIAS Lorazepam (Ativan) 2 mg IM Q4HR PRN PRN Reason: Agitation Melatonin (Melatonin) 5 mg PO QHS PRN PRN Reason: Sleep Quetiapine Fumarate (Seroquel) 300 mg PO QHS [facility] Trazodone HCl (Desyrel) 50 mg PO QHS [facility] Last Admin: 02/24/20 07:56 Dose: Not Given Documented by: Ziprasidone (Geodon) 10 mg IM Q4H PRN PRN Reason: Agitation
[2020-02-24] MEDS: LITHIUM CARBONATE ER 450 MG TAB PO SCH ×2 (09:24→21:02)
[2020-02-24] MEDS: hydroCHLOROthiazide 25 MG TAB PO SCH (09:24)
[2020-02-24] MEDS: amLODIPine 5 MG TAB PO SCH (09:24)
[2020-02-24 12:33] LABS: Basophils # (Auto) 0.1 K/mm3 (0.0-0.1); Basophils % (Auto) 0.5 % (0.0-1.8); Eosinophils # (Auto) 0.1 K/mm3 (0.0-0.4); Eosinophils % (Auto) 1.3 % (0.0-4.3); Hematocrit 44.5 % (35.5-45.6); Hemoglobin 14.9 gm/dl (11.8-15.2); Lymphocytes # (Auto) 2.6 K/mm3 (1.2-5.4); Lymphocytes % (Auto) 24.5 % (13.4-35.0); Mean Corpuscular HGB Conc 33 % (32-34); Mean Corpuscular Volume 94 fl (84-94); Monocytes # (Auto) 0.6 K/mm3 (0.0-0.8); Platelet Count 249 K/mm3 (140-440); Red Blood Count 4.72 M/mm3 (3.65-5.03); Red Cell Distribution Width 13.4 % (13.2-15.2)
[2020-02-24 14:19] LABS: Alanine Aminotransferase 39 units/L (7-56); Albumin 4.5 g/dL (3.9-5); BUN/Creatinine Ratio 17; Blood Urea Nitrogen 17 mg/dL (9-20); Calcium 10.2 mg/dL (8.4-10.2); Chol/HDL Ratio 3.83 %; HDL Cholesterol 43 mg/dL (40-59); Hemolysis Index 7; LDL Cholesterol,Direct 107 mg/dL (50-130)
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
[2020-02-24] MEDS: QUEtiapine 100 MG TAB PO SCH (21:02)
--- NOTE | 2020-02-25 08:06 | Progress Note ---
Subjective Date of service: 02/25/20 Principal diagnosis: Schizoaffective Disorder Subjective Comment: The patient's medical record was reviewed and the patient's progress was discussed with the nursing staff. The nurse note states the patient denies HI and AVH. PT. verbalized suicidal he says it come and go with no plan at this time During my interview with the patient this morning, the patient is lying in bed. He is awake, a/o x 3. He appears down. He is calm and cooperative. The patient says he's "depressed and hurt." He says he "feels suicidal but no plan." The patient is asking for rexulti for depression. Reason for continued inpatient treatment: The patient continues to be depressed with thoughts of self harm. Will continue to treat and stabilize. REVIEW OF SYSTEMS Constitutional: Negative for weight loss ENT: Negative for stridor Respiratory: Negative for cough or hemoptysis All other systems reviewed and are negative MENTAL STATUS EXAMINATION General Appearance; Dressed appropriately Behavior: Calm and cooperative. Fair eye contact Mood: depressed Affect and affective range: congruent with stated mood Thought Process: Fluent/Logical Thought Content: within reality Speech: Normal volume, Regular rate and rhythm Suicidal Ideation: Yes Homicidal Ideation: Denies Hallucinations: Denies Delusions: None elicited Insight and Judgment: Limited Memory/Cognition: Normal Attention: Normal Orientation: Alert, oriented Assessment (1)Schizoaffective Disorder Current Visit: Yes Status: Acute Treatment Plan Patient will be admitted for inpatient psychiatric evaluation, medication adjustment and close monitoring The patient's behavior, mood, sleep and appetite will be closely monitored. Patient will be enrolled in individual and group therapeutic sessions and encouraged to attend. Patient will be provided with a safe and structured environment. Patient's physical health needs will be addressed by the Hospitalist. Hospitalist Consulted Labs including CBC, CMP, Lipid profile and Hemoglobin A1C ordered Social Assessment will be completed and the Crystal Finisher will work with patient and family to ensure a suitable and safe disposition Medication adjustment will be made as clinically indicated Start Zoloft 25mg po daily Usual Wellness Spiritism/Preservation: - Start Trazodone 50 mg po QHS & 50 mg po QHS PRN between 10 PM & 2 AM for insomnia - Start Melatonin 5 mg po QHS to promote circadian rhythm - Start [place]-3 for brain health, reduce impulsivity, and as adjunctive treatment for mood disorder, continue upon discharge given overall benefits. The patient agreed on the treatment plan, understood the risk, benefit, alternative treatment, potential consequence of no treatment, and gave informed consent. Estimated days: 5 Post hospital care: primary care provider, psychiatric provider Medications and Allergies Allergies Allergy/AdvReac Type Severity Reaction Status Date / Time benztropine [From Cogentin] Allergy Itching Verified 08/04/18 08:18 chlorpromazine HCl Allergy Itching Verified 08/04/18 08:18 [From Thorazine] fluoxetine HCl [From Prozac] Allergy Swelling Verified 08/04/18 08:18 haloperidol [From Haldol] Allergy Itching Verified 08/04/18 08:18 haloperidol lactate Allergy Itching Verified 08/04/18 08:18 [From Haldol] propranolol HCl Allergy Itching Verified 08/04/18 08:18 [From Inderal [place]] Home Medications Medication Instructions Recorded Confirmed Last Taken Type Albuterol Mdi (or & Nicu Only) 1 puff IH QID PRN #1 inha 04/14/19 02/25/20 Unknown Rx [ProAir HFA Inhaler] Amlodipine Besylate [Norvasc] 5 mg PO QDAY #30 tab 04/14/19 02/24/20 Unknown Rx [place] Carbonate [[place] 450 mg PO BID 04/14/19 02/24/20 04/14/19 08:00 History Carbonate ER] 450 Quetiapine Fumarate [SEROquel] 300 mg PO QHS 04/14/19 02/24/20 04/14/19 History Active Meds: Active Medications Amlodipine Besylate (Amlodipine) 5 mg PO QDAY [facility] Last Admin: 02/24/20 09:24 Dose: 5 mg Documented by: Fish Oil (Fish Oil) 2,000 mg PO BID [facility] Last Admin: 02/24/20 21:02 Dose: 2,000 mg Documented by: Hydrochlorothiazide (Hctz) 25 mg PO QDAY [facility] Last Admin: 02/24/20 09:24 Dose: 25 mg Documented by: [place] Carbonate (Lithobid Er) 450 mg PO BID [facility] Last Admin: 02/24/20 21:02 Dose: 450 mg Documented by: Lorazepam (Ativan) 2 mg IM Q4HR PRN PRN Reason: Agitation Melatonin (Melatonin) 5 mg PO QHS PRN PRN Reason: Sleep Quetiapine Fumarate (Seroquel) 300 mg PO QHS [facility] Last Admin: 02/24/20 21:02 Dose: 300 mg Documented by: Trazodone HCl (Desyrel) 50 mg PO QHS [facility] Last Admin: 02/24/20 21:03 Dose: 50 mg Documented by: Ziprasidone (Geodon) 10 mg IM Q4H PRN PRN Reason: Agitation Results - Results Labs/Vitals: Laboratory Last Values WBC 10.8 K/mm3 (4.5-11.0) 02/24/20 11:54 RBC 4.72 M/mm3 (3.65-5.03) 02/24/20 11:54 Hgb 14.9 gm/dl (11.8-15.2) 02/24/20 11:54 Hct 44.5 % (35.5-45.6) 02/24/20 11:54 MCV 94 fl (84-94) 02/24/20 11:54 MCH 32 pg (28-32) 02/24/20 11:54 MCHC 33 % (32-34) 02/24/20 11:54 RDW 13.4 % (13.2-15.2) 02/24/20 11:54 Plt Count 249 K/mm3 (140-440) 02/24/20 11:54 Lymph % (Auto) 24.5 % (13.4-35.0) 02/24/20 11:54 [place] % (Auto) 6.0 % (0.0-7.3) 02/24/20 11:54 Eos % (Auto) 1.3 % (0.0-4.3) 02/24/20 11:54 Baso % (Auto) 0.5 % (0.0-1.8) 02/24/20 11:54 Lymph # 2.6 K/mm3 (1.2-5.4) 02/24/20 11:54 [place] # 0.6 K/mm3 (0.0-0.8) 02/24/20 11:54 Eos # 0.1 K/mm3 (0.0-0.4) 02/24/20 11:54 Baso # 0.1 K/mm3 (0.0-0.1) 02/24/20 11:54 Seg Neutrophils % 67.7 % (40.0-70.0) 02/24/20 11:54 Seg Neutrophils # 7.3 K/mm3 (1.8-7.7) 02/24/20 11:54 Sodium 149 mmol/L (137-145) H D 02/24/20 11:54 Potassium 5.1 mmol/L (3.6-5.0) H D 02/24/20 11:54 Chloride 110.9 mmol/L (98-107) H 02/24/20 11:54 Carbon Dioxide 22 mmol/L (22-30) 02/24/20 11:54 Anion Gap 21 mmol/L 02/24/20 11:54 BUN 17 mg/dL (9-20) 02/24/20 11:54 Creatinine 1.0 mg/dL (0.8-1.3) 02/24/20 11:54 Estimated GFR > 60 ml/min 02/24/20 11:54 BUN/Creatinine Ratio 17 % 02/24/20 11:54 Glucose 102 mg/dL (75-100) H 02/24/20 11:54 Hemoglobin A1c 5.4 % (4-6) 02/24/20 11:54 Calcium 10.2 mg/dL (8.4-10.2) 02/24/20 11:54 Total Bilirubin 0.30 mg/dL (0.1-1.2) 02/24/20 11:54 AST 27 units/L (5-40) 02/24/20 11:54 ALT 39 units/L (7-56) 02/24/20 11:54 Alkaline Phosphatase 105 units/L (35-129) 02/24/20 11:54 Total Protein 6.9 g/dL (6.3-8.2) 02/24/20 11:54 Albumin 4.5 g/dL (3.9-5) 02/24/20 11:54 Albumin/Globulin Ratio 1.9 % 02/24/20 11:54 Triglycerides 184 mg/dL (2-149) H 02/24/20 11:54 Cholesterol 165 mg/dL (50-199) 02/24/20 11:54 LDL Cholesterol Direct 107 mg/dL (50-130) 02/24/20 11:54 HDL Cholesterol 43 mg/dL (40-59) 02/24/20 11:54 Cholesterol/HDL Ratio 3.83 % 02/24/20 11:54 TSH 1.120 mlU/mL (0.270-4.200) 02/24/20 11:54 [place] 0.6 mmol/L (0.0-1.2) 02/24/20 11:54 Last Vital Signs Temp 97.6 F 02/24/20 19:36 Pulse 86 02/24/20 19:36 Resp 18 02/24/20 19:36 BP 134/89 02/24/20 19:36 Pulse Ox 95 02/24/20 19:36
[2020-02-25] MEDS ORDERED: SERTRALINE 25 MG TAB PO SCH (10:00)
[2020-02-25] MEDS: hydroCHLOROthiazide 25 MG TAB PO SCH (10:20)
[2020-02-25] MEDS: OMEGA-3 FATTY ACIDS/FISH OIL 1 GRAM CAP PO SCH ×2 (10:20→21:19)
[2020-02-25] MEDS: amLODIPine 5 MG TAB PO SCH (10:21)
[2020-02-25] MEDS: LITHIUM CARBONATE ER 450 MG TAB PO SCH ×2 (10:32→21:19)
[2020-02-25] MEDS ORDERED: ACETAMINOPHEN 325 MG TAB PO PRN (14:10)
[2020-02-25] MEDS: ACETAMINOPHEN 325 MG TAB PO PRN (14:57)
[2020-02-25] MEDS: traZODone 50 MG TAB PO SCH (21:19)
[2020-02-25] MEDS: QUEtiapine 100 MG TAB PO SCH (21:19)
--- NOTE | 2020-02-26 09:13 | Progress Note ---
Subjective Date of service: 02/26/20 Principal diagnosis: Schizoaffective Disorder Subjective Comment: The patient's medical record was reviewed and the patient's progress was discussed with the nursing staff. During my interview with the patient this morning, the patient is lying in bed. He is awake, a/o x 3. The patient states, he's "feeling much better, but still feeling depressed." He is asking about "rexulti." But I informed the patient that the hospital didn't keep it. When asked about any thoughts of self harm, the patient replied "not really." He then says, "well, I guess at times." He denies hallucinations of any kind. He says he slept okay and his appetite is good. Reason for continued inpatient treatment: The patient continues to be depressed with passive thoughts of self harm. Will continue to treat and stabilize. REVIEW OF SYSTEMS Constitutional: Negative for weight loss ENT: Negative for stridor Respiratory: Negative for cough or hemoptysis All other systems reviewed and are negative MENTAL STATUS EXAMINATION General Appearance; Dressed appropriately Behavior: Calm and cooperative. Fair eye contact Mood: "much, better, but still depressed" Affect and affective range: congruent with stated mood Thought Process: Fluent/Logical Thought Content: within reality Speech: Normal volume, Regular rate and rhythm Suicidal Ideation: Yes Homicidal Ideation: Denies Hallucinations: Denies Delusions: None elicited Insight and Judgment: Limited Memory/Cognition: Normal Attention: Normal Orientation: Alert, oriented Assessment (1)Schizoaffective Disorder Current Visit: Yes Status: Acute Treatment Plan Patient will be admitted for inpatient psychiatric evaluation, medication adjustment and close monitoring The patient's behavior, mood, sleep and appetite will be closely monitored. Patient will be enrolled in individual and group therapeutic sessions and encouraged to attend. Patient will be provided with a safe and structured environment. Patient's physical health needs will be addressed by the Hospitalist. Hospitalist Consulted Labs including CBC, CMP, Lipid profile and Hemoglobin A1C ordered Social Assessment will be completed and the Director Energy will work with patient and family to ensure a suitable and safe disposition Medication adjustment will be made as clinically indicated Increased Zoloft 50mg po daily Usual Wellness Islam/Preservation: - Start Trazodone 50 mg po QHS & 50 mg po QHS PRN between 10 PM & 2 AM for insomnia - Start Melatonin 5 mg po QHS to promote circadian rhythm - Start [place]-3 for brain health, reduce impulsivity, and as adjunctive treatment for mood disorder, continue upon discharge given overall benefits. The patient agreed on the treatment plan, understood the risk, benefit, alternative treatment, potential consequence of no treatment, and gave informed consent. Estimated days: 4 Post hospital care: primary care provider, psychiatric provider Medications and Allergies Allergies Allergy/AdvReac Type Severity Reaction Status Date / Time benztropine [From Cogentin] Allergy Itching Verified 08/04/18 08:18 chlorpromazine HCl Allergy Itching Verified 08/04/18 08:18 [From Thorazine] fluoxetine HCl [From Prozac] Allergy Swelling Verified 08/04/18 08:18 haloperidol [From Haldol] Allergy Itching Verified 08/04/18 08:18 haloperidol lactate Allergy Itching Verified 08/04/18 08:18 [From Haldol] propranolol HCl Allergy Itching Verified 08/04/18 08:18 [From Inderal LA] Home Medications Medication Instructions Recorded Confirmed Last Taken Type Albuterol Mdi (or & Nicu Only) 1 puff IH QID PRN #1 inha 04/14/19 02/25/20 Unknown Rx [ProAir HFA Inhaler] Amlodipine Besylate [Norvasc] 5 mg PO QDAY #30 tab 04/14/19 02/24/20 Unknown Rx [place] Carbonate [[place] 450 mg PO BID 04/14/19 02/24/20 04/14/19 08:00 History Carbonate ER] 450 Quetiapine Fumarate [SEROquel] 300 mg PO QHS 04/14/19 02/24/20 04/14/19 History Active Meds: Active Medications Acetaminophen (Tylenol) 650 mg PO Q6H PRN PRN Reason: Pain, Mild (1-3) Last Admin: 02/25/20 14:57 Dose: 650 mg Documented by: Amlodipine Besylate (Amlodipine) 5 mg PO QDAY [facility] Last Admin: 02/25/20 10:21 Dose: 5 mg Documented by: Fish Oil (Fish Oil) 2,000 mg PO BID [facility] Last Admin: 02/25/20 21:19 Dose: 2,000 mg Documented by: Hydrochlorothiazide (Hctz) 25 mg PO QDAY [facility] Last Admin: 02/25/20 10:20 Dose: 25 mg Documented by: [place] Carbonate (Lithobid Er) 450 mg PO BID [facility] Last Admin: 02/25/20 21:19 Dose: 450 mg Documented by: Lorazepam (Ativan) 2 mg IM Q4HR PRN PRN Reason: Agitation Melatonin (Melatonin) 5 mg PO QHS PRN PRN Reason: Sleep Quetiapine Fumarate (Seroquel) 300 mg PO QHS [facility] Last Admin: 02/25/20 21:19 Dose: 300 mg Documented by: Sertraline HCl (Zoloft) 25 mg PO QDAY [facility] Last Admin: 02/25/20 10:20 Dose: 25 mg Documented by: Trazodone HCl (Desyrel) 50 mg PO QHS [facility] Last Admin: 02/25/20 21:19 Dose: 50 mg Documented by: Ziprasidone (Geodon) 10 mg IM Q4H PRN PRN Reason: Agitation Results - Results Labs/Vitals: Laboratory Last Values WBC 10.8 K/mm3 (4.5-11.0) 02/24/20 11:54 RBC 4.72 M/mm3 (3.65-5.03) 02/24/20 11:54 Hgb 14.9 gm/dl (11.8-15.2) 02/24/20 11:54 Hct 44.5 % (35.5-45.6) 02/24/20 11:54 MCV 94 fl (84-94) 02/24/20 11:54 MCH 32 pg (28-32) 02/24/20 11:54 MCHC 33 % (32-34) 02/24/20 11:54 RDW 13.4 % (13.2-15.2) 02/24/20 11:54 Plt Count 249 K/mm3 (140-440) 02/24/20 11:54 Lymph % (Auto) 24.5 % (13.4-35.0) 02/24/20 11:54 [place] % (Auto) 6.0 % (0.0-7.3) 02/24/20 11:54 Eos % (Auto) 1.3 % (0.0-4.3) 02/24/20 11:54 Baso % (Auto) 0.5 % (0.0-1.8) 02/24/20 11:54 Lymph # 2.6 K/mm3 (1.2-5.4) 02/24/20 11:54 [place] # 0.6 K/mm3 (0.0-0.8) 02/24/20 11:54 Eos # 0.1 K/mm3 (0.0-0.4) 02/24/20 11:54 Baso # 0.1 K/mm3 (0.0-0.1) 02/24/20 11:54 Seg Neutrophils % 67.7 % (40.0-70.0) 02/24/20 11:54 Seg Neutrophils # 7.3 K/mm3 (1.8-7.7) 02/24/20 11:54 Sodium 149 mmol/L (137-145) H D 02/24/20 11:54 Potassium 5.1 mmol/L (3.6-5.0) H D 02/24/20 11:54 Chloride 110.9 mmol/L (98-107) H 02/24/20 11:54 Carbon Dioxide 22 mmol/L (22-30) 02/24/20 11:54 Anion Gap 21 mmol/L 02/24/20 11:54 BUN 17 mg/dL (9-20) 02/24/20 11:54 Creatinine 1.0 mg/dL (0.8-1.3) 02/24/20 11:54 Estimated GFR > 60 ml/min 02/24/20 11:54 BUN/Creatinine Ratio 17 % 02/24/20 11:54 Glucose 102 mg/dL (75-100) H 02/24/20 11:54 Hemoglobin A1c 5.4 % (4-6) 02/24/20 11:54 Calcium 10.2 mg/dL (8.4-10.2) 02/24/20 11:54 Total Bilirubin 0.30 mg/dL (0.1-1.2) 02/24/20 11:54 AST 27 units/L (5-40) 02/24/20 11:54 ALT 39 units/L (7-56) 02/24/20 11:54 Alkaline Phosphatase 105 units/L (35-129) 02/24/20 11:54 Total Protein 6.9 g/dL (6.3-8.2) 02/24/20 11:54 Albumin 4.5 g/dL (3.9-5) 02/24/20 11:54 Albumin/Globulin Ratio 1.9 % 02/24/20 11:54 Triglycerides 184 mg/dL (2-149) H 02/24/20 11:54 Cholesterol 165 mg/dL (50-199) 02/24/20 11:54 LDL Cholesterol Direct 107 mg/dL (50-130) 02/24/20 11:54 HDL Cholesterol 43 mg/dL (40-59) 02/24/20 11:54 Cholesterol/HDL Ratio 3.83 % 02/24/20 11:54 TSH 1.120 mlU/mL (0.270-4.200) 02/24/20 11:54 [place] 0.6 mmol/L (0.0-1.2) 02/24/20 11:54 Last Vital Signs Temp 97.6 F 02/25/20 22:00 Pulse 79 02/25/20 22:00 Resp 16 02/25/20 22:00 BP 125/82 02/25/20 22:00 Pulse Ox 95 02/25/20 22:00
[2020-02-26] MEDS: hydroCHLOROthiazide 25 MG TAB PO SCH (09:39)
[2020-02-26] MEDS: LITHIUM CARBONATE ER 450 MG TAB PO SCH ×2 (09:46→21:06)
[2020-02-26] MEDS: OMEGA-3 FATTY ACIDS/FISH OIL 1 GRAM CAP PO SCH ×2 (09:46→21:07)
[2020-02-26] MEDS: amLODIPine 5 MG TAB PO SCH (09:47)
[2020-02-26] MEDS: SERTRALINE 50 MG TAB PO SCH (09:52)
[2020-02-26] MEDS: ACETAMINOPHEN 325 MG TAB PO PRN (13:34)
[2020-02-26] MEDS: traZODone 50 MG TAB PO SCH (21:07)
[2020-02-26] MEDS: QUEtiapine 100 MG TAB PO SCH (21:08)
--- NOTE | 2020-02-27 09:42 | Progress Note ---
Subjective Date of service: 02/27/20 Principal diagnosis: Schizoaffective Disorder Subjective Comment: The patient's medical record was reviewed and the patient's progress was discussed with the nursing staff. The nursing staff states the patient has been delusional, and emotionally labile, and hyperverbal at times. The SW says he was hard to redirect. During my interview with the patient this morning, the patient is in the dayroom. He is awake, a/o x 3. The patient's affect if bright. He says he feels better and "the meds have made a difference." The patient denies SI/HI but states "I did last night." He denies hallucinations of any kind. He is focused on getting to "nigel." He says "nigel says I can live with him." Reason for continued inpatient treatment: The patient continues to be depressed with passive thoughts of self harm on and off. He has been emotionally labile and delusional. Will continue to treat and stabilize. REVIEW OF SYSTEMS Constitutional: Negative for weight loss ENT: Negative for stridor Respiratory: Negative for cough or hemoptysis All other systems reviewed and are negative MENTAL STATUS EXAMINATION General Appearance; Dressed appropriately Behavior: Calm and cooperative. Fair eye contact Mood: "much, better, but still depressed" Affect and affective range: congruent with stated mood Thought Process: Fluent/Logical Thought Content: within reality Speech: Normal volume, Regular rate and rhythm Suicidal Ideation: Yes Homicidal Ideation: Denies Hallucinations: Denies Delusions: None elicited Insight and Judgment: Limited Memory/Cognition: Normal Attention: Normal Orientation: Alert, oriented Assessment (1)Schizoaffective Disorder Current Visit: Yes Status: Acute Treatment Plan Patient will be admitted for inpatient psychiatric evaluation, medication adjustment and close monitoring The patient's behavior, mood, sleep and appetite will be closely monitored. Patient will be enrolled in individual and group therapeutic sessions and encouraged to attend. Patient will be provided with a safe and structured environment. Patient's physical health needs will be addressed by the Hospitalist. Hospitalist Consulted Labs including CBC, CMP, Lipid profile and Hemoglobin A1C ordered Social Assessment will be completed and the Ear Nose Throat Physician will work with patient and family to ensure a suitable and safe disposition Medication adjustment will be made as clinically indicated Increased Zoloft 50mg po daily yesterday Start Depakote DR 125mg po BID Usual Wellness Mormon/Preservation: - Start Trazodone 50 mg po QHS & 50 mg po QHS PRN between 10 PM & 2 AM for insomnia - Start Melatonin 5 mg po QHS to promote circadian rhythm - Start [place]-3 for brain health, reduce impulsivity, and as adjunctive treatment for mood disorder, continue upon discharge given overall benefits. The patient agreed on the treatment plan, understood the risk, benefit, alternative treatment, potential consequence of no treatment, and gave informed consent. Estimated days: 3 Post hospital care: primary care provider, psychiatric provider Medications and Allergies Allergies Allergy/AdvReac Type Severity Reaction Status Date / Time benztropine [From Cogentin] Allergy Itching Verified 08/04/18 08:18 chlorpromazine HCl Allergy Itching Verified 08/04/18 08:18 [From Thorazine] fluoxetine HCl [From Prozac] Allergy Swelling Verified 08/04/18 08:18 haloperidol [From Haldol] Allergy Itching Verified 08/04/18 08:18 haloperidol lactate Allergy Itching Verified 08/04/18 08:18 [From Haldol] propranolol HCl Allergy Itching Verified 08/04/18 08:18 [From Inderal LA] Home Medications Medication Instructions Recorded Confirmed Last Taken Type Albuterol Mdi (or & Nicu Only) 1 puff IH QID PRN #1 inha 04/14/19 02/25/20 Unknown Rx [ProAir HFA Inhaler] Amlodipine Besylate [Norvasc] 5 mg PO QDAY #30 tab 04/14/19 02/24/20 Unknown Rx [place] Carbonate [[place] 450 mg PO BID 04/14/19 02/24/20 04/14/19 08:00 History Carbonate ER] 450 Quetiapine Fumarate [SEROquel] 300 mg PO QHS 04/14/19 02/24/20 04/14/19 History Active Meds: Active Medications Acetaminophen (Tylenol) 650 mg PO Q6H PRN PRN Reason: Pain, Mild (1-3) Last Admin: 02/26/20 13:34 Dose: 650 mg Documented by: Amlodipine Besylate (Amlodipine) 5 mg PO QDAY [facility] Last Admin: 02/26/20 09:47 Dose: 5 mg Documented by: Fish Oil (Fish Oil) 2,000 mg PO BID [facility] Last Admin: 02/26/20 21:07 Dose: 2,000 mg Documented by: Hydrochlorothiazide (Hctz) 25 mg PO QDAY [facility] Last Admin: 02/26/20 09:39 Dose: 25 mg Documented by: [place] Carbonate (Lithobid Er) 450 mg PO BID [facility] Last Admin: 02/26/20 21:06 Dose: 450 mg Documented by: Lorazepam (Ativan) 2 mg IM Q4HR PRN PRN Reason: Agitation Melatonin (Melatonin) 5 mg PO QHS PRN PRN Reason: Sleep Quetiapine Fumarate (Seroquel) 300 mg PO QHS [facility] Last Admin: 02/26/20 21:08 Dose: 300 mg Documented by: Sertraline HCl (Zoloft) 50 mg PO QDAY [facility] Last Admin: 02/26/20 09:52 Dose: 50 mg Documented by: Trazodone HCl (Desyrel) 50 mg PO QHS [facility] Last Admin: 02/26/20 21:07 Dose: 50 mg Documented by: Ziprasidone (Geodon) 10 mg IM Q4H PRN PRN Reason: Agitation Results - Results Labs/Vitals: Laboratory Last Values WBC 10.8 K/mm3 (4.5-11.0) 02/24/20 11:54 RBC 4.72 M/mm3 (3.65-5.03) 02/24/20 11:54 Hgb 14.9 gm/dl (11.8-15.2) 02/24/20 11:54 Hct 44.5 % (35.5-45.6) 02/24/20 11:54 MCV 94 fl (84-94) 02/24/20 11:54 MCH 32 pg (28-32) 02/24/20 11:54 MCHC 33 % (32-34) 02/24/20 11:54 RDW 13.4 % (13.2-15.2) 02/24/20 11:54 Plt Count 249 K/mm3 (140-440) 02/24/20 11:54 Lymph % (Auto) 24.5 % (13.4-35.0) 02/24/20 11:54 [place] % (Auto) 6.0 % (0.0-7.3) 02/24/20 11:54 Eos % (Auto) 1.3 % (0.0-4.3) 02/24/20 11:54 Baso % (Auto) 0.5 % (0.0-1.8) 02/24/20 11:54 Lymph # 2.6 K/mm3 (1.2-5.4) 02/24/20 11:54 [place] # 0.6 K/mm3 (0.0-0.8) 02/24/20 11:54 Eos # 0.1 K/mm3 (0.0-0.4) 02/24/20 11:54 Baso # 0.1 K/mm3 (0.0-0.1) 02/24/20 11:54 Seg Neutrophils % 67.7 % (40.0-70.0) 02/24/20 11:54 Seg Neutrophils # 7.3 K/mm3 (1.8-7.7) 02/24/20 11:54 Sodium 149 mmol/L (137-145) H D 02/24/20 11:54 Potassium 5.1 mmol/L (3.6-5.0) H D 02/24/20 11:54 Chloride 110.9 mmol/L (98-107) H 02/24/20 11:54 Carbon Dioxide 22 mmol/L (22-30) 02/24/20 11:54 Anion Gap 21 mmol/L 02/24/20 11:54 BUN 17 mg/dL (9-20) 02/24/20 11:54 Creatinine 1.0 mg/dL (0.8-1.3) 02/24/20 11:54 Estimated GFR > 60 ml/min 02/24/20 11:54 BUN/Creatinine Ratio 17 % 02/24/20 11:54 Glucose 102 mg/dL (75-100) H 02/24/20 11:54 Hemoglobin A1c 5.4 % (4-6) 02/24/20 11:54 Calcium 10.2 mg/dL (8.4-10.2) 02/24/20 11:54 Total Bilirubin 0.30 mg/dL (0.1-1.2) 02/24/20 11:54 AST 27 units/L (5-40) 02/24/20 11:54 ALT 39 units/L (7-56) 02/24/20 11:54 Alkaline Phosphatase 105 units/L (35-129) 02/24/20 11:54 Total Protein 6.9 g/dL (6.3-8.2) 02/24/20 11:54 Albumin 4.5 g/dL (3.9-5) 02/24/20 11:54 Albumin/Globulin Ratio 1.9 % 02/24/20 11:54 Triglycerides 184 mg/dL (2-149) H 02/24/20 11:54 Cholesterol 165 mg/dL (50-199) 02/24/20 11:54 LDL Cholesterol Direct 107 mg/dL (50-130) 02/24/20 11:54 HDL Cholesterol 43 mg/dL (40-59) 02/24/20 11:54 Cholesterol/HDL Ratio 3.83 % 02/24/20 11:54 TSH 1.120 mlU/mL (0.270-4.200) 02/24/20 11:54 [place] 0.6 mmol/L (0.0-1.2) 02/24/20 11:54 Last Vital Signs Temp 98.4 F 02/26/20 19:40 Pulse 96 H 02/26/20 19:40 Resp 16 02/26/20 19:40 BP 142/83 02/26/20 19:40 Pulse Ox 95 02/26/20 19:40
[2020-02-27] MEDS: SERTRALINE 50 MG TAB PO SCH (10:20)
[2020-02-27] MEDS: OMEGA-3 FATTY ACIDS/FISH OIL 1 GRAM CAP PO SCH ×2 (10:20→21:34)
[2020-02-27] MEDS: DIVALPROEX DR 125 MG TAB PO SCH ×2 (10:21→21:34)
[2020-02-27] MEDS: hydroCHLOROthiazide 25 MG TAB PO SCH (10:21)
[2020-02-27] MEDS: LITHIUM CARBONATE ER 450 MG TAB PO SCH ×2 (10:21→21:33)
[2020-02-27] MEDS: amLODIPine 5 MG TAB PO SCH (10:21)
[2020-02-27] MEDS: ACETAMINOPHEN 325 MG TAB PO PRN (12:55)
[2020-02-27] MEDS: traZODone 50 MG TAB PO SCH (21:34)
[2020-02-27] MEDS: QUEtiapine 100 MG TAB PO SCH (21:34)
--- NOTE | 2020-02-28 08:42 | Progress Note ---
Subjective Date of service: 02/28/20 Principal diagnosis: Schizoaffective Disorder Subjective Comment: The patient's medical record was reviewed and the patient's progress was discussed with the nursing staff. During my interview with the patient this morning, the patient is in the dayroom. He is awake, a/o x 3. The patient states "my depression is much better." When asked about SI/HI, the patient states "it's really due to being hurt by my . She makes me feel like that." The patient is still focusing on "kartik." He says "I need to get to kartik." The patient says, "Kartik is expecting me back." Reason for continued inpatient treatment: The patient continues passive thoughts of self harm due to feelings over his spouse. He has had episodes of being emotionally labile according to the nursing staff. Will continue to treat and stabilize. REVIEW OF SYSTEMS Constitutional: Negative for weight loss ENT: Negative for stridor Respiratory: Negative for cough or hemoptysis All other systems reviewed and are negative MENTAL STATUS EXAMINATION General Appearance; Dressed appropriately Behavior: Calm and cooperative. Fair eye contact Mood: "much, better, but still depressed" Affect and affective range: congruent with stated mood Thought Process: Fluent/Logical Thought Content: within reality Speech: Normal volume, Regular rate and rhythm Suicidal Ideation: Yes Homicidal Ideation: Denies Hallucinations: Denies Delusions: None elicited Insight and Judgment: Limited Memory/Cognition: Normal Attention: Normal Orientation: Alert, oriented Assessment (1)Schizoaffective Disorder Current Visit: Yes Status: Acute Treatment Plan Patient will be admitted for inpatient psychiatric evaluation, medication adjustment and close monitoring The patient's behavior, mood, sleep and appetite will be closely monitored. Patient will be enrolled in individual and group therapeutic sessions and encouraged to attend. Patient will be provided with a safe and structured environment. Patient's physical health needs will be addressed by the Hospitalist. Hospitalist Consulted Labs including CBC, CMP, Lipid profile and Hemoglobin A1C ordered Social Assessment will be completed and the Sr. Media Manager will work with patient and family to ensure a suitable and safe disposition Medication adjustment will be made as clinically indicated Increased Depakote DR 250mg po BID to improve mood Usual Wellness Latter-Day/Preservation: - Start Trazodone 50 mg po QHS & 50 mg po QHS PRN between 10 PM & 2 AM for insomnia - Start Melatonin 5 mg po QHS to promote circadian rhythm - Start [place]-3 for brain health, reduce impulsivity, and as adjunctive treatment for mood disorder, continue upon discharge given overall benefits. The patient agreed on the treatment plan, understood the risk, benefit, alternative treatment, potential consequence of no treatment, and gave informed consent. Estimated days: 3 Post hospital care: primary care provider, psychiatric provider Medications and Allergies Allergies Allergy/AdvReac Type Severity Reaction Status Date / Time benztropine [From Cogentin] Allergy Itching Verified 08/04/18 08:18 chlorpromazine HCl Allergy Itching Verified 08/04/18 08:18 [From Thorazine] fluoxetine HCl [From Prozac] Allergy Swelling Verified 08/04/18 08:18 haloperidol [From Haldol] Allergy Itching Verified 08/04/18 08:18 haloperidol lactate Allergy Itching Verified 08/04/18 08:18 [From Haldol] propranolol HCl Allergy Itching Verified 08/04/18 08:18 [From Inderal LA] Home Medications Medication Instructions Recorded Confirmed Last Taken Type Albuterol Mdi (or & Nicu Only) 1 puff IH QID PRN #1 inha 04/14/19 02/25/20 Unknown Rx [ProAir HFA Inhaler] Amlodipine Besylate [Norvasc] 5 mg PO QDAY #30 tab 04/14/19 02/24/20 Unknown Rx [place] Carbonate [[place] 450 mg PO BID 04/14/19 02/24/20 04/14/19 08:00 History Carbonate ER] 450 Quetiapine Fumarate [SEROquel] 300 mg PO QHS 04/14/19 02/24/20 04/14/19 History Active Meds: Active Medications Acetaminophen (Tylenol) 650 mg PO Q6H PRN PRN Reason: Pain, Mild (1-3) Last Admin: 02/27/20 12:55 Dose: 650 mg Documented by: Amlodipine Besylate (Amlodipine) 5 mg PO QDAY [facility] Last Admin: 02/27/20 10:21 Dose: 5 mg Documented by: Divalproex Sodium (Depakote Dr) 125 mg PO BID [facility] Last Admin: 02/27/20 21:34 Dose: 125 mg Documented by: Fish Oil (Fish Oil) 2,000 mg PO BID [facility] Last Admin: 02/27/20 21:34 Dose: 2,000 mg Documented by: Hydrochlorothiazide (Hctz) 25 mg PO QDAY [facility] Last Admin: 02/27/20 10:21 Dose: 25 mg Documented by: [place] Carbonate (Lithobid Er) 450 mg PO BID [facility] Last Admin: 02/27/20 21:33 Dose: 450 mg Documented by: Lorazepam (Ativan) 2 mg IM Q4HR PRN PRN Reason: Agitation Melatonin (Melatonin) 5 mg PO QHS PRN PRN Reason: Sleep Quetiapine Fumarate (Seroquel) 300 mg PO QHS [facility] Last Admin: 02/27/20 21:34 Dose: 300 mg Documented by: Sertraline HCl (Zoloft) 50 mg PO QDAY [facility] Last Admin: 02/27/20 10:20 Dose: 50 mg Documented by: Trazodone HCl (Desyrel) 50 mg PO QHS [facility] Last Admin: 02/27/20 21:34 Dose: 50 mg Documented by: Ziprasidone (Geodon) 10 mg IM Q4H PRN PRN Reason: Agitation Results - Results Labs/Vitals: Laboratory Last Values WBC 10.8 K/mm3 (4.5-11.0) 02/24/20 11:54 RBC 4.72 M/mm3 (3.65-5.03) 02/24/20 11:54 Hgb 14.9 gm/dl (11.8-15.2) 02/24/20 11:54 Hct 44.5 % (35.5-45.6) 02/24/20 11:54 MCV 94 fl (84-94) 02/24/20 11:54 MCH 32 pg (28-32) 02/24/20 11:54 MCHC 33 % (32-34) 02/24/20 11:54 RDW 13.4 % (13.2-15.2) 02/24/20 11:54 Plt Count 249 K/mm3 (140-440) 02/24/20 11:54 Lymph % (Auto) 24.5 % (13.4-35.0) 02/24/20 11:54 [place] % (Auto) 6.0 % (0.0-7.3) 02/24/20 11:54 Eos % (Auto) 1.3 % (0.0-4.3) 02/24/20 11:54 Baso % (Auto) 0.5 % (0.0-1.8) 02/24/20 11:54 Lymph # 2.6 K/mm3 (1.2-5.4) 02/24/20 11:54 [place] # 0.6 K/mm3 (0.0-0.8) 02/24/20 11:54 Eos # 0.1 K/mm3 (0.0-0.4) 02/24/20 11:54 Baso # 0.1 K/mm3 (0.0-0.1) 02/24/20 11:54 Seg Neutrophils % 67.7 % (40.0-70.0) 02/24/20 11:54 Seg Neutrophils # 7.3 K/mm3 (1.8-7.7) 02/24/20 11:54 Sodium 149 mmol/L (137-145) H D 02/24/20 11:54 Potassium 5.1 mmol/L (3.6-5.0) H D 02/24/20 11:54 Chloride 110.9 mmol/L (98-107) H 02/24/20 11:54 Carbon Dioxide 22 mmol/L (22-30) 02/24/20 11:54 Anion Gap 21 mmol/L 02/24/20 11:54 BUN 17 mg/dL (9-20) 02/24/20 11:54 Creatinine 1.0 mg/dL (0.8-1.3) 02/24/20 11:54 Estimated GFR > 60 ml/min 02/24/20 11:54 BUN/Creatinine Ratio 17 % 02/24/20 11:54 Glucose 102 mg/dL (75-100) H 02/24/20 11:54 Hemoglobin A1c 5.4 % (4-6) 02/24/20 11:54 Calcium 10.2 mg/dL (8.4-10.2) 02/24/20 11:54 Total Bilirubin 0.30 mg/dL (0.1-1.2) 02/24/20 11:54 AST 27 units/L (5-40) 02/24/20 11:54 ALT 39 units/L (7-56) 02/24/20 11:54 Alkaline Phosphatase 105 units/L (35-129) 02/24/20 11:54 Total Protein 6.9 g/dL (6.3-8.2) 02/24/20 11:54 Albumin 4.5 g/dL (3.9-5) 02/24/20 11:54 Albumin/Globulin Ratio 1.9 % 02/24/20 11:54 Triglycerides 184 mg/dL (2-149) H 02/24/20 11:54 Cholesterol 165 mg/dL (50-199) 02/24/20 11:54 LDL Cholesterol Direct 107 mg/dL (50-130) 02/24/20 11:54 HDL Cholesterol 43 mg/dL (40-59) 02/24/20 11:54 Cholesterol/HDL Ratio 3.83 % 02/24/20 11:54 TSH 1.120 mlU/mL (0.270-4.200) 02/24/20 11:54 [place] 0.6 mmol/L (0.0-1.2) 02/24/20 11:54 Last Vital Signs Temp 98.2 F 02/27/20 19:09 Pulse 93 H 02/27/20 19:09 Resp 16 02/27/20 19:09 BP 137/86 02/27/20 19:09 Pulse Ox 95 02/27/20 19:09
[2020-02-28] MEDS: OMEGA-3 FATTY ACIDS/FISH OIL 1 GRAM CAP PO SCH ×2 (09:01→21:22)
[2020-02-28] MEDS: SERTRALINE 50 MG TAB PO SCH (09:01)
[2020-02-28] MEDS: hydroCHLOROthiazide 25 MG TAB PO SCH (09:01)
[2020-02-28] MEDS: amLODIPine 5 MG TAB PO SCH (09:02)
[2020-02-28] MEDS: LITHIUM CARBONATE ER 450 MG TAB PO SCH ×2 (09:03→21:21)
[2020-02-28] MEDS: DIVALPROEX DR 250 MG TAB PO SCH ×2 (10:08→21:22)
[2020-02-28] MEDS: ACETAMINOPHEN 325 MG TAB PO PRN (13:38)
[2020-02-28] MEDS: QUEtiapine 100 MG TAB PO SCH (21:20)
[2020-02-28] MEDS: traZODone 50 MG TAB PO SCH (21:22)
--- NOTE | 2020-02-29 09:08 | Progress Note ---
Subjective Date of service: 02/29/20 Principal diagnosis: Schizoaffective Disorder Subjective Comment: The patient's medical record was reviewed and the patient's progress was discussed with the nursing staff. During my interview with the patient this morning, the patient is in the dayroom. He is awake, a/o x 3. The patient presents as much better, but at times I get down. He denies hallucinations of any kind. He also denies SI/HI. He says "the medication is helping a lot." Reason for continued inpatient treatment: The patient has improved significantly. His medications was increased yesterday, so will stabilize the patient one more night in order to monitor his mood and self harm thoughts. Will plan for a safe discharge tomorrow if an uneventful night. REVIEW OF SYSTEMS Constitutional: Negative for weight loss ENT: Negative for stridor Respiratory: Negative for cough or hemoptysis All other systems reviewed and are negative MENTAL STATUS EXAMINATION General Appearance; Dressed appropriately Behavior: Calm and cooperative. Fair eye contact Mood: "much, but at times down" Affect and affective range: congruent with stated mood Thought Process: Fluent/Logical Thought Content: within reality Speech: Normal volume, Regular rate and rhythm Suicidal Ideation: Denies Homicidal Ideation: Denies Hallucinations: Denies Delusions: None elicited Insight and Judgment: Limited Memory/Cognition: Normal Attention: Normal Orientation: Alert, oriented Assessment (1)Schizoaffective Disorder Current Visit: Yes Status: Acute Treatment Plan Patient will be admitted for inpatient psychiatric evaluation, medication adjustment and close monitoring The patient's behavior, mood, sleep and appetite will be closely monitored. Patient will be enrolled in individual and group therapeutic sessions and encouraged to attend. Patient will be provided with a safe and structured environment. Patient's physical health needs will be addressed by the Hospitalist. Hospitalist Consulted Labs including CBC, CMP, Lipid profile and Hemoglobin A1C ordered Social Assessment will be completed and the Store Receiving Specialist will work with patient and family to ensure a suitable and safe disposition Medication adjustment will be made as clinically indicated Increased Depakote DR 250mg po BID to improve mood yesterday No changes today Usual Wellness Tenriism/Preservation: - Start Trazodone 50 mg po QHS & 50 mg po QHS PRN between 10 PM & 2 AM for insomnia - Start Melatonin 5 mg po QHS to promote circadian rhythm - Start [place]-3 for brain health, reduce impulsivity, and as adjunctive treatment for mood disorder, continue upon discharge given overall benefits. The patient agreed on the treatment plan, understood the risk, benefit, alternative treatment, potential consequence of no treatment, and gave informed consent. Estimated days: 1 Post hospital care: primary care provider, psychiatric provider Medications and Allergies Allergies Allergy/AdvReac Type Severity Reaction Status Date / Time benztropine [From Cogentin] Allergy Itching Verified 08/04/18 08:18 chlorpromazine HCl Allergy Itching Verified 08/04/18 08:18 [From Thorazine] fluoxetine HCl [From Prozac] Allergy Swelling Verified 08/04/18 08:18 haloperidol [From Haldol] Allergy Itching Verified 08/04/18 08:18 haloperidol lactate Allergy Itching Verified 08/04/18 08:18 [From Haldol] propranolol HCl Allergy Itching Verified 08/04/18 08:18 [From Inderal LA] Home Medications Medication Instructions Recorded Confirmed Last Taken Type Albuterol Mdi (or & Nicu Only) 1 puff IH QID PRN #1 inha 04/14/19 02/25/20 Unknown Rx [ProAir HFA Inhaler] Amlodipine Besylate [Norvasc] 5 mg PO QDAY #30 tab 04/14/19 02/24/20 Unknown Rx [place] Carbonate [[place] 450 mg PO BID 04/14/19 02/24/20 04/14/19 08:00 History Carbonate ER] 450 Quetiapine Fumarate [SEROquel] 300 mg PO QHS 04/14/19 02/24/20 04/14/19 History Active Meds: Active Medications Acetaminophen (Tylenol) 650 mg PO Q6H PRN PRN Reason: Pain, Mild (1-3) Last Admin: 02/28/20 13:38 Dose: 650 mg Documented by: Amlodipine Besylate (Amlodipine) 5 mg PO QDAY [facility] Last Admin: 02/28/20 09:02 Dose: 5 mg Documented by: Divalproex Sodium (Depakote Dr) 250 mg PO BID [facility] Last Admin: 02/28/20 21:22 Dose: 250 mg Documented by: Fish Oil (Fish Oil) 2,000 mg PO BID [facility] Last Admin: 02/28/20 21:22 Dose: 2,000 mg Documented by: Hydrochlorothiazide (Hctz) 25 mg PO QDAY [facility] Last Admin: 02/28/20 09:01 Dose: 25 mg Documented by: [place] Carbonate (Lithobid Er) 450 mg PO BID [facility] Last Admin: 02/28/20 21:21 Dose: 450 mg Documented by: Lorazepam (Ativan) 2 mg IM Q4HR PRN PRN Reason: Agitation Melatonin (Melatonin) 5 mg PO QHS PRN PRN Reason: Sleep Quetiapine Fumarate (Seroquel) 300 mg PO QHS [facility] Last Admin: 02/28/20 21:20 Dose: 300 mg Documented by: Sertraline HCl (Zoloft) 50 mg PO QDAY [facility] Last Admin: 02/28/20 09:01 Dose: 50 mg Documented by: Trazodone HCl (Desyrel) 50 mg PO QHS [facility] Last Admin: 02/28/20 21:22 Dose: 50 mg Documented by: Ziprasidone (Geodon) 10 mg IM Q4H PRN PRN Reason: Agitation Results - Results Labs/Vitals: Laboratory Last Values WBC 10.8 K/mm3 (4.5-11.0) 02/24/20 11:54 RBC 4.72 M/mm3 (3.65-5.03) 02/24/20 11:54 Hgb 14.9 gm/dl (11.8-15.2) 02/24/20 11:54 Hct 44.5 % (35.5-45.6) 02/24/20 11:54 MCV 94 fl (84-94) 02/24/20 11:54 MCH 32 pg (28-32) 02/24/20 11:54 MCHC 33 % (32-34) 02/24/20 11:54 RDW 13.4 % (13.2-15.2) 02/24/20 11:54 Plt Count 249 K/mm3 (140-440) 02/24/20 11:54 Lymph % (Auto) 24.5 % (13.4-35.0) 02/24/20 11:54 [place] % (Auto) 6.0 % (0.0-7.3) 02/24/20 11:54 Eos % (Auto) 1.3 % (0.0-4.3) 02/24/20 11:54 Baso % (Auto) 0.5 % (0.0-1.8) 02/24/20 11:54 Lymph # 2.6 K/mm3 (1.2-5.4) 02/24/20 11:54 [place] # 0.6 K/mm3 (0.0-0.8) 02/24/20 11:54 Eos # 0.1 K/mm3 (0.0-0.4) 02/24/20 11:54 Baso # 0.1 K/mm3 (0.0-0.1) 02/24/20 11:54 Seg Neutrophils % 67.7 % (40.0-70.0) 02/24/20 11:54 Seg Neutrophils # 7.3 K/mm3 (1.8-7.7) 02/24/20 11:54 Sodium 149 mmol/L (137-145) H D 02/24/20 11:54 Potassium 5.1 mmol/L (3.6-5.0) H D 02/24/20 11:54 Chloride 110.9 mmol/L (98-107) H 02/24/20 11:54 Carbon Dioxide 22 mmol/L (22-30) 02/24/20 11:54 Anion Gap 21 mmol/L 02/24/20 11:54 BUN 17 mg/dL (9-20) 02/24/20 11:54 Creatinine 1.0 mg/dL (0.8-1.3) 02/24/20 11:54 Estimated GFR > 60 ml/min 02/24/20 11:54 BUN/Creatinine Ratio 17 % 02/24/20 11:54 Glucose 102 mg/dL (75-100) H 02/24/20 11:54 Hemoglobin A1c 5.4 % (4-6) 02/24/20 11:54 Calcium 10.2 mg/dL (8.4-10.2) 02/24/20 11:54 Total Bilirubin 0.30 mg/dL (0.1-1.2) 02/24/20 11:54 AST 27 units/L (5-40) 02/24/20 11:54 ALT 39 units/L (7-56) 02/24/20 11:54 Alkaline Phosphatase 105 units/L (35-129) 02/24/20 11:54 Total Protein 6.9 g/dL (6.3-8.2) 02/24/20 11:54 Albumin 4.5 g/dL (3.9-5) 02/24/20 11:54 Albumin/Globulin Ratio 1.9 % 02/24/20 11:54 Triglycerides 184 mg/dL (2-149) H 02/24/20 11:54 Cholesterol 165 mg/dL (50-199) 02/24/20 11:54 LDL Cholesterol Direct 107 mg/dL (50-130) 02/24/20 11:54 HDL Cholesterol 43 mg/dL (40-59) 02/24/20 11:54 Cholesterol/HDL Ratio 3.83 % 02/24/20 11:54 TSH 1.120 mlU/mL (0.270-4.200) 02/24/20 11:54 [place] 0.6 mmol/L (0.0-1.2) 02/24/20 11:54 Last Vital Signs Temp 98.5 F 02/28/20 19:38 Pulse 88 02/28/20 19:38 Resp 16 02/28/20 19:38 BP 134/95 02/28/20 19:38 Pulse Ox 96 02/28/20 19:38
[2020-02-29] MEDS: DIVALPROEX DR 250 MG TAB PO SCH ×2 (10:57→21:48)
[2020-02-29] MEDS: SERTRALINE 50 MG TAB PO SCH (10:57)
[2020-02-29] MEDS: OMEGA-3 FATTY ACIDS/FISH OIL 1 GRAM CAP PO SCH ×2 (10:57→21:48)
[2020-02-29] MEDS: amLODIPine 5 MG TAB PO SCH (10:58)
[2020-02-29] MEDS: LITHIUM CARBONATE ER 450 MG TAB PO SCH ×2 (10:59→21:48)
[2020-02-29] MEDS: hydroCHLOROthiazide 25 MG TAB PO SCH (10:59)
[2020-02-29] MEDS: ACETAMINOPHEN 325 MG TAB PO PRN (17:43)
--- NOTE | 2020-02-29 20:39 | Progress Note ---
History Interval history: 49 YO Male with Bipolar, Schizophrenia. Hospitalist Physical - Constitutional Vitals: Temp Pulse Resp BP Pulse Ox 98.5 F 3 L 16 134/95 96 02/28/20 19:38 02/29/20 10:58 02/28/20 19:38 02/29/20 10:58 02/28/20 19:38 General appearance: Present: no acute distress, well-nourished Results - Labs CBC & Chem 7: 02/24/20 11:54 02/24/20 11:54 Labs: Laboratory Last Values WBC 10.8 K/mm3 (4.5-11.0) 02/24/20 11:54 RBC 4.72 M/mm3 (3.65-5.03) 02/24/20 11:54 Hgb 14.9 gm/dl (11.8-15.2) 02/24/20 11:54 Hct 44.5 % (35.5-45.6) 02/24/20 11:54 MCV 94 fl (84-94) 02/24/20 11:54 MCH 32 pg (28-32) 02/24/20 11:54 MCHC 33 % (32-34) 02/24/20 11:54 RDW 13.4 % (13.2-15.2) 02/24/20 11:54 Plt Count 249 K/mm3 (140-440) 02/24/20 11:54 Lymph % (Auto) 24.5 % (13.4-35.0) 02/24/20 11:54 [place] % (Auto) 6.0 % (0.0-7.3) 02/24/20 11:54 Eos % (Auto) 1.3 % (0.0-4.3) 02/24/20 11:54 Baso % (Auto) 0.5 % (0.0-1.8) 02/24/20 11:54 Lymph # 2.6 K/mm3 (1.2-5.4) 02/24/20 11:54 [place] # 0.6 K/mm3 (0.0-0.8) 02/24/20 11:54 Eos # 0.1 K/mm3 (0.0-0.4) 02/24/20 11:54 Baso # 0.1 K/mm3 (0.0-0.1) 02/24/20 11:54 Seg Neutrophils % 67.7 % (40.0-70.0) 02/24/20 11:54 Seg Neutrophils # 7.3 K/mm3 (1.8-7.7) 02/24/20 11:54 Sodium 149 mmol/L (137-145) H D 02/24/20 11:54 Potassium 5.1 mmol/L (3.6-5.0) H D 02/24/20 11:54 Chloride 110.9 mmol/L (98-107) H 02/24/20 11:54 Carbon Dioxide 22 mmol/L (22-30) 02/24/20 11:54 Anion Gap 21 mmol/L 02/24/20 11:54 BUN 17 mg/dL (9-20) 02/24/20 11:54 Creatinine 1.0 mg/dL (0.8-1.3) 02/24/20 11:54 Estimated GFR > 60 ml/min 02/24/20 11:54 BUN/Creatinine Ratio 17 % 02/24/20 11:54 Glucose 102 mg/dL (75-100) H 02/24/20 11:54 Hemoglobin A1c 5.4 % (4-6) 02/24/20 11:54 Calcium 10.2 mg/dL (8.4-10.2) 02/24/20 11:54 Total Bilirubin 0.30 mg/dL (0.1-1.2) 02/24/20 11:54 AST 27 units/L (5-40) 02/24/20 11:54 ALT 39 units/L (7-56) 02/24/20 11:54 Alkaline Phosphatase 105 units/L (35-129) 02/24/20 11:54 Total Protein 6.9 g/dL (6.3-8.2) 02/24/20 11:54 Albumin 4.5 g/dL (3.9-5) 02/24/20 11:54 Albumin/Globulin Ratio 1.9 % 02/24/20 11:54 Triglycerides 184 mg/dL (2-149) H 02/24/20 11:54 Cholesterol 165 mg/dL (50-199) 02/24/20 11:54 LDL Cholesterol Direct 107 mg/dL (50-130) 02/24/20 11:54 HDL Cholesterol 43 mg/dL (40-59) 02/24/20 11:54 Cholesterol/HDL Ratio 3.83 % 02/24/20 11:54 TSH 1.120 mlU/mL (0.270-4.200) 02/24/20 11:54 [place] 0.6 mmol/L (0.0-1.2) 02/24/20 11:54 [place]arez/IV: Voiding Method Toilet Active Medications - Current Medications Current Medications: Generic Name Dose Route Start Last Admin Trade Name Freq PRN Reason Stop Dose Admin Acetaminophen 650 mg 02/25/20 15:00 02/29/20 17:43 Tylenol PO 650 mg Q6H PRN Administration Pain, Mild (1-3) Amlodipine Besylate 5 mg 02/24/20 10:00 02/29/20 10:58 Amlodipine PO 5 mg QDAY [facility] Administration Divalproex Sodium 250 mg 02/28/20 10:00 02/29/20 10:[address] PO 250 mg BID [facility] Administration Fish Oil 2,000 mg 02/23/20 22:00 02/29/20 10:57 Fish Oil PO 2,000 mg BID [facility] Administration Hydrochlorothiazide 25 mg 02/24/20 10:00 02/29/20 10:59 Hctz PO 25 mg QDAY [facility] Administration [place] Carbonate 450 mg 02/24/20 10:00 02/29/20 10:59 Lithobid Er PO 450 mg BID [facility] Administration Lorazepam 2 mg 02/23/20 16:20 Ativan IM Q4HR PRN Agitation Melatonin 5 mg 02/23/20 16:20 Melatonin PO QHS PRN Sleep Quetiapine Fumarate 300 mg 02/24/20 22:00 02/28/20 21:20 Seroquel PO 300 mg QHS [facility] Administration Sertraline HCl 50 mg 02/26/20 10:00 02/29/20 10:57 Zoloft PO 50 mg QDAY [facility] Administration Trazodone HCl 50 mg 02/23/20 22:00 02/28/20 21:22 Desyrel PO 50 mg QHS [facility] Administration Ziprasidone 10 mg 02/23/20 16:20 Geodon IM Q4H PRN Agitation
[2020-02-29] MEDS: traZODone 50 MG TAB PO SCH (21:48)
[2020-02-29] MEDS: QUEtiapine 100 MG TAB PO SCH (21:48)
--- NOTE | 2020-03-01 08:46 | Discharge Summary ---
Providers - Providers Date of Admission: 02/24/20 00:16 Date of discharge: 03/01/20 Attending physician: NATHANAEL MESSINA MD 02/23/20 16:12 Consult to Physician [CONS] Routine Comment: Consulting Provider: PITER BAIRD Physician Instructions: Reason For Exam: Medical Management Primary care physician: FICTION AND NONFICTION AUTHOR Hospitalization Reason for admission: depression, SI Admitting Diagnosis: F25.1 - SCHIZOAFFECTIVE DISORDER, DEPRESSIVE TYPE Hospital course: The patient was provided inpatient psychiatric treatment with safe and supportive care, medication adjustment, adverse effect monitoring, medical evaluations, medical treatments, assessment and psycho-education. The patient's mood, cognition, behavior, moral support are improved and stabilized. St the time of discharge, the patient had no endangering behavior and no debilitating adverse effects. The patient agreed on potential consequences of no treatment and gave informed consent. Disposition: DC- TO HOME OR SELFCARE Time spent for discharge: 38 Allergies/Adverse Reactions: Allergies benztropine [From Cogentin] Allergy (Verified 08/04/18 08:18) Itching chlorpromazine HCl [From Thorazine] Allergy (Verified 08/04/18 08:18) Itching fluoxetine HCl [From Prozac] Allergy (Verified 08/04/18 08:18) Swelling haloperidol [From Haldol] Allergy (Verified 08/04/18 08:18) Itching haloperidol lactate [From Haldol] Allergy (Verified 08/04/18 08:18) Itching propranolol HCl [From Inderal LA] Allergy (Verified 08/04/18 08:18) Itching Vital Signs: Last Vital Signs Temp 98.6 F 02/29/20 21:14 Pulse 87 02/29/20 21:14 Resp 18 02/29/20 21:14 BP 137/90 02/29/20 21:14 Pulse Ox 95 02/29/20 21:14 Last Lab: Laboratory Last Values WBC 10.8 K/mm3 (4.5-11.0) 02/24/20 11:54 RBC 4.72 M/mm3 (3.65-5.03) 02/24/20 11:54 Hgb 14.9 gm/dl (11.8-15.2) 02/24/20 11:54 Hct 44.5 % (35.5-45.6) 02/24/20 11:54 MCV 94 fl (84-94) 02/24/20 11:54 MCH 32 pg (28-32) 02/24/20 11:54 MCHC 33 % (32-34) 02/24/20 11:54 RDW 13.4 % (13.2-15.2) 02/24/20 11:54 Plt Count 249 K/mm3 (140-440) 02/24/20 11:54 Lymph % (Auto) 24.5 % (13.4-35.0) 02/24/20 11:54 [place] % (Auto) 6.0 % (0.0-7.3) 02/24/20 11:54 Eos % (Auto) 1.3 % (0.0-4.3) 02/24/20 11:54 Baso % (Auto) 0.5 % (0.0-1.8) 02/24/20 11:54 Lymph # 2.6 K/mm3 (1.2-5.4) 02/24/20 11:54 [place] # 0.6 K/mm3 (0.0-0.8) 02/24/20 11:54 Eos # 0.1 K/mm3 (0.0-0.4) 02/24/20 11:54 Baso # 0.1 K/mm3 (0.0-0.1) 02/24/20 11:54 Seg Neutrophils % 67.7 % (40.0-70.0) 02/24/20 11:54 Seg Neutrophils # 7.3 K/mm3 (1.8-7.7) 02/24/20 11:54 Sodium 149 mmol/L (137-145) H D 02/24/20 11:54 Potassium 5.1 mmol/L (3.6-5.0) H D 02/24/20 11:54 Chloride 110.9 mmol/L (98-107) H 02/24/20 11:54 Carbon Dioxide 22 mmol/L (22-30) 02/24/20 11:54 Anion Gap 21 mmol/L 02/24/20 11:54 BUN 17 mg/dL (9-20) 02/24/20 11:54 Creatinine 1.0 mg/dL (0.8-1.3) 02/24/20 11:54 Estimated GFR > 60 ml/min 02/24/20 11:54 BUN/Creatinine Ratio 17 % 02/24/20 11:54 Glucose 102 mg/dL (75-100) H 02/24/20 11:54 Hemoglobin A1c 5.4 % (4-6) 02/24/20 11:54 Calcium 10.2 mg/dL (8.4-10.2) 02/24/20 11:54 Total Bilirubin 0.30 mg/dL (0.1-1.2) 02/24/20 11:54 AST 27 units/L (5-40) 02/24/20 11:54 ALT 39 units/L (7-56) 02/24/20 11:54 Alkaline Phosphatase 105 units/L (35-129) 02/24/20 11:54 Total Protein 6.9 g/dL (6.3-8.2) 02/24/20 11:54 Albumin 4.5 g/dL (3.9-5) 02/24/20 11:54 Albumin/Globulin Ratio 1.9 % 02/24/20 11:54 Triglycerides 184 mg/dL (2-149) H 02/24/20 11:54 Cholesterol 165 mg/dL (50-199) 02/24/20 11:54 LDL Cholesterol Direct 107 mg/dL (50-130) 02/24/20 11:54 HDL Cholesterol 43 mg/dL (40-59) 02/24/20 11:54 Cholesterol/HDL Ratio 3.83 % 02/24/20 11:54 TSH 1.120 mlU/mL (0.270-4.200) 02/24/20 11:54 Tye 0.6 mmol/L (0.0-1.2) 02/24/20 11:54 Core Measure Documentation - Palliative Care Palliative Care/ Comfort Measures: Not Applicable - Core Measures Any of the following diagnoses?: none Exam - Constitutional Vitals: Temp Pulse Resp BP Pulse Ox 98.6 F 87 18 137/90 95 02/29/20 21:14 02/29/20 21:14 02/29/20 21:14 02/29/20 21:14 02/29/20 21:14 General appearance: Present: no acute distress - EENT Eyes: Present: PERRL, EOM intact ENT: hearing intact, clear oral mucosa - Neck Neck: Present: supple, normal ROM - Respiratory Respiratory effort: normal Plan Activity: advance as tolerated Weight Bearing Status: Weight Bear as Tolerated Care Plan Goals: maintain good and stable mental health Plan of Treatment: The patient should be compliant with medications, not to use drugs, and not to drink alcohol. The patient understands that if suicidal ideas, homicidal ideas or any endangering feeling arise, the patient should seek assistance including, but not limited to crisis hotline, and emergency room. Assessment: Schizoaffective Disorder At the time of assessment for readiness of discharge, the patient was calm, cooperative, and lucid though process. He denies SI/HI or hallucinations of any kind. Follow up with: PRIMARY CARE, [Primary Care Provider] - 7 Days Prescriptions: traZODone [Desyrel] 50 mg PO QHS #30 tablet Melatonin [Melatonin 5MG TAB] 5 mg PO QHS PRN #30 tablet PRN Reason: Sleep Quetiapine Fumarate [SEROquel] 300 mg PO QHS #30 Divalproex [Karen Fletcher] 250 mg PO BID #60 tablet [place]-3 Fatty Acids/Fish Oil [Fish Oil] 2,000 mg PO BID #60 capsule Sertraline [Zoloft] 50 mg PO QDAY #30 tablet
[2020-03-01 09:51] VITALS: BP 124/82
[2020-03-01] MEDS: OMEGA-3 FATTY ACIDS/FISH OIL 1 GRAM CAP PO SCH (11:22)
[2020-03-01] MEDS: SERTRALINE 50 MG TAB PO SCH (11:22)
[2020-03-01] MEDS: hydroCHLOROthiazide 25 MG TAB PO SCH (11:23)
[2020-03-01] MEDS: amLODIPine 5 MG TAB PO SCH (11:23)
[2020-03-01] MEDS: LITHIUM CARBONATE ER 450 MG TAB PO SCH (11:23)
[2020-03-01] MEDS: DIVALPROEX DR 250 MG TAB PO SCH (11:23)
[2020-03-01] MEDS: ACETAMINOPHEN 325 MG TAB PO PRN (16:00)
== END 2020-03-01 17:08 | disposition home or self-care (01) | DRG 885 ==
LOC: 3A 14:54 → UNDOADMIN 14:54 → 5A 02-24 00:16
PROVIDERS: ADMIT Psychiatry & Neurology Psychiatry; ATTEND Psychiatry & Neurology Psychiatry
DX: F25.0 Schizoaffective disorder, bipolar type (principal); I10 Essential (primary) hypertension; F17.200 Nicotine dependence, unspecified, uncomplicated; Z79.899 Other long term (current) drug therapy
CPT/HCPCS: 36415; 80048; 80053; 80061; 80178; 80307; 80320; 81001; 83036; 84443; 85025; 96372; G0378; G0480; J2060; J3486; U0003-CS

== ENCOUNTER 2020-03-08 21:59 | Emergency (ER) | payer MEDICARE ==
[2020-03-08 23:20] VITALS: BP 137/96
[2020-03-09] MEDS ORDERED: IBUPROFEN 800 MG TAB PO ONE (01:11)
[2020-03-09] MEDS ORDERED: ACETAMINOPHEN 325 MG TAB PO ONE (01:11)
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
--- NOTE | 2020-03-09 01:55 | Cat Scan Report ---
CT HEAD WITHOUT CONTRAST INDICATION / CLINICAL INFORMATION: Patient had a fall with head injury and laceration. No L.O.C.. TECHNIQUE: All CT scans at this location are performed using CT dose reduction for ALARA by means of automated e xposure control. COMPARISON: None available. FINDINGS: HEMORRHAGE: None. EXTRA-AXIAL SPACES: Normal in size and morphology for the patient's age. VENTRICULAR SYSTEM: Normal in size and morphology for the patient's age. CEREBRAL PARENCHYMA: No significant abnormality. No acute territorial infarct. MIDLINE SHIFT OR HERNIATION: None. CEREBELLUM / BRAINSTEM: No significant abnormality. ORBITS: Normal as visualized. SOFT TISSUES of HEAD: Small frontal scalp laceration/hematoma CALVARIUM: No significant abnormality. PARANASAL SINUSES / MASTOID AIR CELLS: Normal as visualized. ADDITIONAL FINDINGS: None. IMPRESSION: 1. No acute intracranial abnormality. 2 small midline frontal scalp hematoma Signer Name: Alex Mak MD Signed: 03/09/2020 1:50 AM Workstation Name: [id number]
== END 2020-03-09 02:05 | disposition home or self-care (01) ==
LOC: ED 21:59
DX: S09.90XA Unspecified injury of head, initial encounter (principal); I10 Essential (primary) hypertension; F32.9 Major depressive disorder, single episode, unspecified; F20.9 Schizophrenia, unspecified; F17.200 Nicotine dependence, unspecified, uncomplicated; Z79.899 Other long term (current) drug therapy; Z88.8 Allergy status to other drugs, medicaments and biological substances; W01.0XXA Fall on same level from slipping, tripping and stumbling without subsequent striking against object, initial encounter; Y93.89 Activity, other specified; Y92.89 Other specified places as the place of occurrence of the external cause; Y99.8 Other external cause status
CPT/HCPCS: 70450

== ENCOUNTER 2021-01-10 16:16 | Emergency (ER) | payer MEDICARE ==
[2021-01-10 16:52] VITALS: BP 177/115
--- NOTE | 2021-01-10 17:25 | XRay Report ---
RIGHT SHOULDER 3 VIEWS INDICATION / CLINICAL INFORMATION: Fall with right shoulder pain. COMPARISON: None available. FINDINGS: BONES / JOINT(S): There are mild degenerative changes involving the acromioclavicular joint. There is no evidence of acute fracture or subluxation. SOFT TISSUES: No significant abnormality. ADDITIONAL FINDINGS: The visualized right lung is clear. Signer Name: Ed Mehta MD Signed: 01/10/2021 5:21 PM Workstation Name: [id number]
== END 2021-01-10 19:35 | disposition left against medical advice (07) ==
LOC: ED 16:16
DX: M25.511 Pain in right shoulder (principal); Z53.21 Procedure and treatment not carried out due to patient leaving prior to being seen by health care provider

== ENCOUNTER 2021-01-15 21:40 | Emergency (ER) | payer MEDICARE ==
[2021-01-15 23:03] LABS: Bilirubin,Urine NEG (Negative); Blood,Urine NEG (Negative); Color,Urine Yellow (Yellow); Mucus,Urine 1+ /HPF
[2021-01-15 23:12] LABS: Amphetamine Screen,Urine PRESUMPTIVE NEGATIVE; Benzodiazepines Screen,Urine PRESUMPTIVE NEGATIVE; Cannabinoid Screen,Urine PRESUMPTIVE NEGATIVE; Cocaine Screen,Urine PRESUMPTIVE NEGATIVE; Methadone Screen,Urine PRESUMPTIVE NEGATIVE; Opiate Screen,Urine PRESUMPTIVE NEGATIVE
[2021-01-15 23:17] LABS: Basophils # (Auto) 0.1 K/mm3 (0.0-0.1); Basophils % (Auto) 0.6 % (0.0-1.8); Eosinophils # (Auto) 0.1 K/mm3 (0.0-0.4); Hematocrit 43.2 % (35.5-45.6); Hemoglobin 14.5 gm/dl (11.8-15.2); Lymphocytes # (Auto) 2.9 K/mm3 (1.2-5.4); Mean Corpuscular HGB Conc 34 % (32-34); Mean Corpuscular Volume 92 fl (84-94); Monocytes % (Auto) 9.2 % (0.0-7.3); Platelet Count 235 K/mm3 (140-440); Red Blood Count 4.68 M/mm3 (3.65-5.03); Red Cell Distribution Width 13.3 % (13.2-15.2)
[2021-01-15 23:30] LABS: BUN/Creatinine Ratio 8; Blood Urea Nitrogen 10 mg/dL (9-20); Calcium 8.9 mg/dL (8.4-10.2); Hemolysis Index 14
[2021-01-16] MEDS ORDERED: ACETAMINOPHEN 325 MG TAB PO ONE (08:41)
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
[2021-01-16] MEDS: SERTRALINE 50 MG TAB PO SCH (10:31)
[2021-01-16] MEDS: amLODIPine 5 MG TAB PO SCH (10:31)
[2021-01-16] MEDS: hydroCHLOROthiazide 25 MG TAB PO SCH (10:31)
[2021-01-16] MEDS ORDERED: NON-FORMULARY EACH (Quetiapine Fumarate [Seroquel] 300 MG Tablet) PO SCH (22:00)
[2021-01-16] MEDS ORDERED: QUEtiapine 100 MG TAB PO SCH (22:00)
[2021-01-17 09:09] VITALS: BP 142/98
[2021-01-17] MEDS: hydroCHLOROthiazide 25 MG TAB PO SCH (10:01)
[2021-01-17] MEDS: SERTRALINE 50 MG TAB PO SCH (10:01)
[2021-01-17] MEDS: amLODIPine 5 MG TAB PO SCH (10:01)
== END 2021-01-17 10:53 | disposition home or self-care (01) ==
LOC: EEVIPCON 21:40 → ED 21:40
DX: R45.851 Suicidal ideations (principal); R45.850 Homicidal ideations; Z13.30 Encounter for screening examination for mental health and behavioral disorders, unspecified; I10 Essential (primary) hypertension; F31.9 Bipolar disorder, unspecified; F20.9 Schizophrenia, unspecified; F41.8 Other specified anxiety disorders; F17.200 Nicotine dependence, unspecified, uncomplicated; Z20.822 Contact with and (suspected) exposure to COVID-19
CPT/HCPCS: 36415; 70450; 73060; 80048; 80307; 81001; 85025; 99285; U0003; 80320; G0480

== ENCOUNTER 2021-01-16 16:09 | Inpatient (IN) | payer MEDICARE ==
[2021-01-17] MEDS ORDERED: MELATONIN 5 MG TAB PO PRN (21:41)
[2021-01-17] MEDS ORDERED: DIVALPROEX DR 250 MG TAB PO SCH (22:00)
[2021-01-17] MEDS: LITHIUM CARBONATE ER 450 MG TAB PO SCH (22:11)
[2021-01-17] MEDS: traZODone 50 MG TAB PO SCH (22:11)
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
[2021-01-18] MEDS ORDERED: LITHIUM CARBONATE ER 450 MG TAB PO SCH (10:00)
[2021-01-18] MEDS: LITHIUM CARBONATE ER 450 MG TAB PO SCH ×2 (10:26→21:49)
[2021-01-18] MEDS: hydroCHLOROthiazide 25 MG TAB PO SCH (13:02)
[2021-01-18] MEDS: amLODIPine 5 MG TAB PO SCH (13:02)
[2021-01-18] MEDS: SERTRALINE 50 MG TAB PO SCH (13:02)
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
[2021-01-18] MEDS: traZODone 50 MG TAB PO SCH (21:49)
[2021-01-18] MEDS: QUEtiapine 100 MG TAB PO SCH (21:50)
[2021-01-18] MEDS ORDERED: NON-FORMULARY EACH (Quetiapine Fumarate [Seroquel] 300 MG Tablet) PO SCH (22:00)
[2021-01-18] MEDS ORDERED: MELATONIN 5 MG TAB PO PRN (22:00)
--- NOTE | 2021-01-19 08:19 | Progress Note ---
Subjective Date of service: 01/19/21 Subjective Comment: 01/19/2021: The patient was seen resting in bed. He reports that he he feels better. States mood as " relaxed." He reports sleep and appetite as good. the patient reports having intermittent suicidal ideation without a plan. He denies homicidal thoughts and denies hallucinations. Per nurse, the patient had a quiet night. No changes made today. REVIEW OF SYSTEMS Constitutional: Negative for weight loss ENT: Negative for stridor Respiratory: Negative for cough or hemoptysis All other systems reviewed and are negative MENTAL STATUS EXAMINATION General Appearance and Behavior: Age appropriate, good hygiene, wearing appropriate clothes, cooperative, polite Cooperation: Participating/engaged Psychomotor Behavior: normal Mood: Angry Affect and affective range: congruent with stated mood Thought Process: goal directed Thought Content: Suicidal/homicidal thoughts Speech: Normal volume, Regular rate and rhythm Suicidal Ideation: Yes Homicidal Ideation: Yes Hallucinations: Denies Delusions: None elicited Impulse Control: impaired Insight and Judgment: limited insight and poor judgment, Memory: normal Attention: Normal Orientation: Alert, oriented Assessment and Plan (1) Bipolar Disorder Current Visit: Yes Status: Acute Treatment Plan Patient admitted for inpatient psychiatric evaluation, medication adjustment and close monitoring The patient's behavior, mood, sleep and appetite will be closely monitored. Patient enrolled in individual and group therapeutic sessions and encouraged to attend. Patient provided with a safe and structured environment. Patient's physical health needs will be addressed by the Hospitalist. Hospitalist Consulted Labs including CBC, CMP, Lipid profile and Hemoglobin A1C levels ordered for baseline reference Social Assessment will be completed and the Horse Groomer will work with patient and family to ensure a suitable and safe disposition Medication adjustment will be made as clinically indicated Continue home medications Usual Wellness L[employer]/Preservation: - Start Trazodone 50 mg po QHS & 50 mg po QHS PRN between 10 PM & 2 AM for insomnia - Start Melatonin 5 mg po QHS to promote circadian rhythm The patient agreed on the treatment plan, understood the risk, benefit, alternative treatment, potential consequence of no treatment, and gave informed consent. Estimated days: 4 Post hospital care: primary care provider, psychiatric provider Case staffed with Dr. Song Legal Status: Voluntary Reaction to Hospitalization: Accepting Medications and Allergies Allergies Medications and Allergies Allergies Allergy/AdvReac Type Severity Reaction Status Date / Time benztropine [From Cogentin] Allergy Itching Verified 08/04/18 08:18 chlorpromazine HCl Allergy Itching Verified 08/04/18 08:18 [From Thorazine] fluoxetine HCl [From Prozac] Allergy Swelling Verified 08/04/18 08:18 haloperidol [From Haldol] Allergy Itching Verified 08/04/18 08:18 haloperidol lactate Allergy Itching Verified 08/04/18 08:18 [From Haldol] propranolol HCl Allergy Itching Verified 08/04/18 08:18 [From Inderal LA] Home Medications Medication Instructions Recorded Confirmed Last Taken Type Albuterol Mdi (or & Nicu Only) 1 puff IH QID PRN #1 inha 04/14/19 01/17/21 Unknown Rx [ProAir HFA Inhaler] Amlodipine Besylate [Norvasc] 5 mg PO QDAY #30 tab 04/14/19 01/17/21 Unknown Rx [place] Carbonate [[place] 450 mg PO BID 04/14/19 01/17/21 04/14/19 08:00 History Carbonate ER] 450 Melatonin [Melatonin 5MG TAB] 5 mg PO QHS PRN #30 tablet 03/01/20 01/17/21 Unknown Rx [place]-3 Fatty Acids/Fish Oil [Fish 2,000 mg PO BID #60 capsule 03/01/20 01/17/21 Unknown Rx Oil] Quetiapine Fumarate [SEROquel] 300 mg PO QHS #30 03/01/20 01/17/21 Unknown Rx Sertraline [Zoloft] 50 mg PO QDAY #30 tablet 03/01/20 01/17/21 Unknown Rx hydroCHLOROthiazide [HCTZ] 25 mg PO QDAY tablet 03/01/20 01/17/21 Unknown Rx traZODone [Desyrel] 50 mg PO QHS #30 tablet 03/01/20 01/17/21 Unknown Rx Mupirocin [Bactroban 2% OINT] 1 applic TP TID 5 Days #1 tube 03/09/20 01/17/21 Unknown Rx hydroCHLOROthiazide [HCTZ] 25 mg PO QDAY 01/17/21 01/17/21 Unknown History Active Meds: Active Medications Amlodipine Besylate (Amlodipine 5 Mg Tab) 5 mg PO QDAY [facility] Last Admin: 01/18/21 13:02 Dose: 5 mg Documented by: Hydrochlorothiazide (Hydrochlorothiazide 25 Mg Tab) 25 mg PO QDAY [facility] Last Admin: 01/18/21 13:02 Dose: 25 mg Documented by: [place] Carbonate ([place] Carbonate Er 450 Mg Tab) 450 mg PO BID [facility] Last Admin: 01/18/21 21:49 Dose: 450 mg Documented by: Melatonin (Melatonin 5 Mg Tab) 5 mg PO QHS PRN PRN Reason: Sleep Quetiapine Fumarate (Quetiapine 100 Mg Tab) 300 mg PO QHS [facility] Last Admin: 01/18/21 21:50 Dose: 300 mg Documented by: Sertraline HCl (Sertraline 50 Mg Tab) 50 mg PO QDAY [facility] Last Admin: 01/18/21 13:02 Dose: 50 mg Documented by: Trazodone HCl (Trazodone 50 Mg Tab) 50 mg PO QHS [facility] Last Admin: 01/18/21 21:49 Dose: 50 mg Documented by: Results - Results Labs/Vitals: Laboratory Last Values POC Glucose 112 mg/dL (70-105) H 01/18/21 06:14 Last Vital Signs Temp 98.8 F 01/18/21 22:00 Pulse 100 H 01/18/21 22:00 Resp 18 01/18/21 22:00 BP 138/96 01/18/21 22:00 Pulse Ox 94 01/18/21 22:00
[2021-01-19] MEDS: LITHIUM CARBONATE ER 450 MG TAB PO SCH ×2 (09:28→22:03)
[2021-01-19] MEDS: hydroCHLOROthiazide 25 MG TAB PO SCH (09:28)
[2021-01-19] MEDS: SERTRALINE 50 MG TAB PO SCH (09:28)
[2021-01-19] MEDS: amLODIPine 5 MG TAB PO SCH (09:29)
[2021-01-19 11:22] LABS: Basophils # (Auto) 0.1 K/mm3 (0.0-0.1); Basophils % (Auto) 0.7 % (0.0-1.8); Eosinophils # (Auto) 0.1 K/mm3 (0.0-0.4); Eosinophils % (Auto) 1.4 % (0.0-4.3); Hematocrit 48.2 % (35.5-45.6); Hemoglobin 16.7 gm/dl (11.8-15.2); Lymphocytes # (Auto) 2.8 K/mm3 (1.2-5.4); Lymphocytes % (Auto) 26.7 % (13.4-35.0); Mean Corpuscular HGB Conc 35 % (32-34); Mean Corpuscular Volume 92 fl (84-94); Monocytes # (Auto) 0.8 K/mm3 (0.0-0.8); Monocytes % (Auto) 7.3 % (0.0-7.3); Platelet Count 234 K/mm3 (140-440); Red Blood Count 5.23 M/mm3 (3.65-5.03); Red Cell Distribution Width 13.3 % (13.2-15.2)
[2021-01-19 11:45] LABS: Alanine Aminotransferase 23 units/L (7-56); BUN/Creatinine Ratio 19; Blood Urea Nitrogen 17 mg/dL (9-20); Calcium 9.6 mg/dL (8.4-10.2); Chol/HDL Ratio 4.14 %; HDL Cholesterol 34 mg/dL (40-59); Hemolysis Index 12; LDL Cholesterol,Direct 96 mg/dL (50-130)
[2021-01-19] MEDS: traZODone 50 MG TAB PO SCH (22:03)
[2021-01-19] MEDS: QUEtiapine 100 MG TAB PO SCH (22:03)
--- NOTE | 2021-01-20 08:04 | Progress Note ---
Subjective Date of service: 01/20/21 Subjective Comment: 01/19/2021: The patient was seen resting in bed. He reports that he he feels better. States mood as " relaxed." He reports sleep and appetite as good. the patient reports having intermittent suicidal ideation without a plan. He denies homicidal thoughts and denies hallucinations. Per nurse, the patient had a quiet night. No changes made today. 01/20/2021: The patient was seen resting in bed, he reports doing well. He reports sleep and appetite as good. He denies any current suicidal/homicidal ideation and denies hallucinations. Per nurse, the patient had a quiet night. No changes made today. REVIEW OF SYSTEMS Constitutional: Negative for weight loss ENT: Negative for stridor Respiratory: Negative for cough or hemoptysis All other systems reviewed and are negative MENTAL STATUS EXAMINATION General Appearance and Behavior: Age appropriate, good hygiene, wearing appropriate clothes, cooperative, polite Cooperation: Participating/engaged Psychomotor Behavior: normal Mood: "good" Affect and affective range: congruent with stated mood Thought Process: goal directed Thought Content: Not Suicidal Speech: Normal volume, Regular rate and rhythm Suicidal Ideation: No Homicidal Ideation: No Hallucinations: Denies Delusions: None elicited Impulse Control: impaired Insight and Judgment: limited insight and poor judgment, Memory: normal Attention: Normal Orientation: Alert, oriented Assessment and Plan (1) Bipolar Disorder Current Visit: Yes Status: Acute Treatment Plan Patient admitted for inpatient psychiatric evaluation, medication adjustment and close monitoring The patient's behavior, mood, sleep and appetite will be closely monitored. Patient enrolled in individual and group therapeutic sessions and encouraged to attend. Patient provided with a safe and structured environment. Patient's physical health needs will be addressed by the Hospitalist. Hospitalist Consulted Labs including CBC, CMP, Lipid profile and Hemoglobin A1C levels ordered for baseline reference Social Assessment will be completed and the Concrete Bucket Unloader will work with patient and family to ensure a suitable and safe disposition Medication adjustment will be made as clinically indicated No changes made today Continue home medications Usual Wellness [employer]/Preservation: - Start Trazodone 50 mg po QHS & 50 mg po QHS PRN between 10 PM & 2 AM for insomnia - Start Melatonin 5 mg po QHS to promote circadian rhythm The patient agreed on the treatment plan, understood the risk, benefit, alternative treatment, potential consequence of no treatment, and gave informed consent. Estimated days: 4 Post hospital care: primary care provider, psychiatric provider Case staffed with Dr. Song Legal Status: Voluntary Reaction to Hospitalization: Accepting Medications and Allergies Medications and Allergies Allergies Allergy/AdvReac Type Severity Reaction Status Date / Time benztropine [From Cogentin] Allergy Itching Verified 08/04/18 08:18 chlorpromazine HCl Allergy Itching Verified 08/04/18 08:18 [From Thorazine] fluoxetine HCl [From Prozac] Allergy Swelling Verified 08/04/18 08:18 haloperidol [From Haldol] Allergy Itching Verified 08/04/18 08:18 haloperidol lactate Allergy Itching Verified 08/04/18 08:18 [From Haldol] propranolol HCl Allergy Itching Verified 08/04/18 08:18 [From Inderal LA] Home Medications Medication Instructions Recorded Confirmed Last Taken Type Albuterol Mdi (or & Nicu Only) 1 puff IH QID PRN #1 inha 04/14/19 01/17/21 Unknown Rx [ProAir HFA Inhaler] Amlodipine Besylate [Norvasc] 5 mg PO QDAY #30 tab 04/14/19 01/17/21 Unknown Rx [place] Carbonate [[place] 450 mg PO BID 04/14/19 01/17/21 04/14/19 08:00 History Carbonate ER] 450 Melatonin [Melatonin 5MG TAB] 5 mg PO QHS PRN #30 tablet 03/01/20 01/17/21 Unknown Rx [place]-3 Fatty Acids/Fish Oil [Fish 2,000 mg PO BID #60 capsule 03/01/20 01/17/21 Unknown Rx Oil] Quetiapine Fumarate [SEROquel] 300 mg PO QHS #30 03/01/20 01/17/21 Unknown Rx Sertraline [Zoloft] 50 mg PO QDAY #30 tablet 03/01/20 01/17/21 Unknown Rx hydroCHLOROthiazide [HCTZ] 25 mg PO QDAY tablet 03/01/20 01/17/21 Unknown Rx traZODone [Desyrel] 50 mg PO QHS #30 tablet 03/01/20 01/17/21 Unknown Rx Mupirocin [Bactroban 2% OINT] 1 applic TP TID 5 Days #1 tube 03/09/20 01/17/21 Unknown Rx hydroCHLOROthiazide [HCTZ] 25 mg PO QDAY 01/17/21 01/17/21 Unknown History Active Meds: Active Medications Amlodipine Besylate (Amlodipine 5 Mg Tab) 5 mg PO QDAY [facility] Last Admin: 01/19/21 09:29 Dose: 5 mg Documented by: Hydrochlorothiazide (Hydrochlorothiazide 25 Mg Tab) 25 mg PO QDAY [facility] Last Admin: 01/19/21 09:28 Dose: 25 mg Documented by: [place] Carbonate ([place] Carbonate Er 450 Mg Tab) 450 mg PO BID [facility] Last Admin: 01/19/21 22:03 Dose: 450 mg Documented by: Melatonin (Melatonin 5 Mg Tab) 5 mg PO QHS PRN PRN Reason: Sleep Quetiapine Fumarate (Quetiapine 100 Mg Tab) 300 mg PO QHS [facility] Last Admin: 01/19/21 22:03 Dose: 300 mg Documented by: Sertraline HCl (Sertraline 50 Mg Tab) 50 mg PO QDAY [facility] Last Admin: 01/19/21 09:28 Dose: 50 mg Documented by: Trazodone HCl (Trazodone 50 Mg Tab) 50 mg PO QHS [facility] Last Admin: 01/19/21 22:03 Dose: 50 mg Documented by: Results - Results Labs/Vitals: Laboratory Last Values WBC 10.6 K/mm3 (4.5-11.0) 01/19/21 11:01 RBC 5.23 M/mm3 (3.65-5.03) H 01/19/21 11:01 Hgb 16.7 gm/dl (11.8-15.2) H 01/19/21 11:01 Hct 48.2 % (35.5-45.6) H 01/19/21 11:01 MCV 92 fl (84-94) 01/19/21 11:01 MCH 32 pg (28-32) 01/19/21 11:01 MCHC 35 % (32-34) H 01/19/21 11:01 RDW 13.3 % (13.2-15.2) 01/19/21 11:01 Plt Count 234 K/mm3 (140-440) 01/19/21 11:01 Lymph % (Auto) 26.7 % (13.4-35.0) 01/19/21 11:01 [place] % (Auto) 7.3 % (0.0-7.3) 01/19/21 11:01 Eos % (Auto) 1.4 % (0.0-4.3) 01/19/21 11:01 Baso % (Auto) 0.7 % (0.0-1.8) 01/19/21 11:01 Lymph # (Auto) 2.8 K/mm3 (1.2-5.4) 01/19/21 11:01 [place] # (Auto) 0.8 K/mm3 (0.0-0.8) 01/19/21 11:01 Eos # (Auto) 0.1 K/mm3 (0.0-0.4) 01/19/21 11:01 Baso # (Auto) 0.1 K/mm3 (0.0-0.1) 01/19/21 11:01 Seg Neutrophils % 63.9 % (40.0-70.0) 01/19/21 11:01 Seg Neutrophils # 6.8 K/mm3 (1.8-7.7) 01/19/21 11:01 Sodium 138 mmol/L (137-145) 01/19/21 11:01 Potassium 4.1 mmol/L (3.6-5.0) 01/19/21 11:01 Chloride 103.2 mmol/L (98-107) 01/19/21 11:01 Carbon Dioxide 25 mmol/L (22-30) 01/19/21 11:01 Anion Gap 14 mmol/L 01/19/21 11:01 BUN 17 mg/dL (9-20) 01/19/21 11:01 Creatinine 0.9 mg/dL (0.8-1.3) 01/19/21 11:01 Estimated GFR > 60 ml/min 01/19/21 11:01 BUN/Creatinine Ratio 19 % 01/19/21 11:01 Glucose 108 mg/dL (75-100) H 01/19/21 11:01 POC Glucose 112 mg/dL (70-105) H 01/18/21 06:14 Hemoglobin A1c 5.7 % (4-6) 01/19/21 11:01 Calcium 9.6 mg/dL (8.4-10.2) 01/19/21 11:01 Total Bilirubin 0.30 mg/dL (0.1-1.2) 01/19/21 11:01 AST 18 units/L (5-40) 01/19/21 11:01 ALT 23 units/L (7-56) 01/19/21 11:01 Alkaline Phosphatase 107 units/L (35-129) 01/19/21 11:01 Total Protein 6.5 g/dL (6.3-8.2) 01/19/21 11:01 Albumin 4.0 g/dL (3.9-5) 01/19/21 11:01 Albumin/Globulin Ratio 1.6 % 01/19/21 11:01 Triglycerides 106 mg/dL (2-149) 01/19/21 11:01 Cholesterol 141 mg/dL (50-199) 01/19/21 11:01 LDL Cholesterol Direct 96 mg/dL (50-130) 01/19/21 11:01 HDL Cholesterol 34 mg/dL (40-59) L 01/19/21 11:01 Cholesterol/HDL Ratio 4.14 % 01/19/21 11:01 TSH 0.459 mlU/mL (0.270-4.200) 01/19/21 11:01 Last Vital Signs Temp 98.7 F 01/19/21 19:29 Pulse 96 H 01/19/21 19:29 Resp 16 01/19/21 19:29 BP 143/88 01/19/21 19:29 Pulse Ox 90 01/19/21 19:29
[2021-01-20] MEDS: amLODIPine 5 MG TAB PO SCH (09:28)
[2021-01-20] MEDS: hydroCHLOROthiazide 25 MG TAB PO SCH (09:28)
[2021-01-20] MEDS: SERTRALINE 50 MG TAB PO SCH (09:28)
[2021-01-20] MEDS: LITHIUM CARBONATE ER 450 MG TAB PO SCH ×2 (09:28→21:02)
[2021-01-20] MEDS: QUEtiapine 100 MG TAB PO SCH (21:01)
[2021-01-20] MEDS: traZODone 50 MG TAB PO SCH (21:02)
--- NOTE | 2021-01-21 08:10 | Progress Note ---
Subjective Date of service: 01/21/21 Subjective Comment: 01/19/2021: The patient was seen resting in bed. He reports that he he feels better. States mood as " relaxed." He reports sleep and appetite as good. the patient reports having intermittent suicidal ideation without a plan. He denies homicidal thoughts and denies hallucinations. Per nurse, the patient had a quiet night. No changes made today. 01/20/2021: The patient was seen resting in bed, he reports doing well. He reports sleep and appetite as good. He denies any current suicidal/homicidal ideation and denies hallucinations. Per nurse, the patient had a quiet night. No changes made today. 01/21/2021: The patient reports doing well. He reports sleep and appetite as good. He denies any current suicidal/homicidal ideation and denies hallucinations. Per nurse, the patient had a quiet night. No changes made today. REVIEW OF SYSTEMS Constitutional: Negative for weight loss ENT: Negative for stridor Respiratory: Negative for cough or hemoptysis All other systems reviewed and are negative MENTAL STATUS EXAMINATION General Appearance and Behavior: Age appropriate, good hygiene, wearing appropriate clothes, cooperative, polite Cooperation: Participating/engaged Psychomotor Behavior: normal Mood: "good" Affect and affective range: congruent with stated mood Thought Process: goal directed Thought Content: Not Suicidal Speech: Normal volume, Regular rate and rhythm Suicidal Ideation: No Homicidal Ideation: No Hallucinations: Denies Delusions: None elicited Impulse Control: impaired Insight and Judgment: limited insight and poor judgment, Memory: normal Attention: Normal Orientation: Alert, oriented Assessment and Plan (1) Bipolar Disorder Current Visit: Yes Status: Acute Treatment Plan Patient admitted for inpatient psychiatric evaluation, medication adjustment and close monitoring The patient's behavior, mood, sleep and appetite will be closely monitored. Patient enrolled in individual and group therapeutic sessions and encouraged to attend. Patient provided with a safe and structured environment. Patient's physical health needs will be addressed by the Hospitalist. Hospitalist Consulted Labs including CBC, CMP, Lipid profile and Hemoglobin A1C levels ordered for baseline reference Social Assessment will be completed and the Monotype Mechanic will work with patient and family to ensure a suitable and safe disposition Medication adjustment will be made as clinically indicated No changes made today [place] Level- 01/22/2021 Continue home medications Usual Wellness [employer]ology/Preservation: - Start Trazodone 50 mg po QHS & 50 mg po QHS PRN between 10 PM & 2 AM for insomnia - Start Melatonin 5 mg po QHS to promote circadian rhythm The patient agreed on the treatment plan, understood the risk, benefit, alternative treatment, potential consequence of no treatment, and gave informed consent. Estimated days: 4 Post hospital care: primary care provider, psychiatric provider Case staffed with Dr. oSng Legal Status: Voluntary Reaction to Hospitalization: Accepting Medications and Allergies Medications and Allergies Allergies Allergy/AdvReac Type Severity Reaction Status Date / Time benztropine [From Cogentin] Allergy Itching Verified 08/04/18 08:18 chlorpromazine HCl Allergy Itching Verified 08/04/18 08:18 [From Thorazine] fluoxetine HCl [From Prozac] Allergy Swelling Verified 08/04/18 08:18 haloperidol [From Haldol] Allergy Itching Verified 08/04/18 08:18 haloperidol lactate Allergy Itching Verified 08/04/18 08:18 [From Haldol] propranolol HCl Allergy Itching Verified 08/04/18 08:18 [From Inderal LA] Home Medications Medication Instructions Recorded Confirmed Last Taken Type Albuterol Mdi (or & Nicu Only) 1 puff IH QID PRN #1 inha 04/14/19 01/17/21 Unknown Rx [ProAir HFA Inhaler] Amlodipine Besylate [Norvasc] 5 mg PO QDAY #30 tab 04/14/19 01/17/21 Unknown Rx [place] Carbonate [[place] 450 mg PO BID 04/14/19 01/17/21 04/14/19 08:00 History Carbonate ER] 450 Melatonin [Melatonin 5MG TAB] 5 mg PO QHS PRN #30 tablet 03/01/20 01/17/21 Unknown Rx [place]-3 Fatty Acids/Fish Oil [Fish 2,000 mg PO BID #60 capsule 03/01/20 01/17/21 Unknown Rx Oil] Quetiapine Fumarate [SEROquel] 300 mg PO QHS #30 03/01/20 01/17/21 Unknown Rx Sertraline [Zoloft] 50 mg PO QDAY #30 tablet 03/01/20 01/17/21 Unknown Rx hydroCHLOROthiazide [HCTZ] 25 mg PO QDAY tablet 03/01/20 01/17/21 Unknown Rx traZODone [Desyrel] 50 mg PO QHS #30 tablet 03/01/20 01/17/21 Unknown Rx Mupirocin [Bactroban 2% OINT] 1 applic TP TID 5 Days #1 tube 03/09/20 01/17/21 Unknown Rx hydroCHLOROthiazide [HCTZ] 25 mg PO QDAY 01/17/21 01/17/21 Unknown History Active Meds: Active Medications Amlodipine Besylate (Amlodipine 5 Mg Tab) 5 mg PO QDAY [facility] Last Admin: 01/20/21 09:28 Dose: 5 mg Documented by: Hydrochlorothiazide (Hydrochlorothiazide 25 Mg Tab) 25 mg PO QDAY [facility] Last Admin: 01/20/21 09:28 Dose: 25 mg Documented by: [place] Carbonate ([place] Carbonate Er 450 Mg Tab) 450 mg PO BID [facility] Last Admin: 01/20/21 21:02 Dose: 450 mg Documented by: Melatonin (Melatonin 5 Mg Tab) 5 mg PO QHS PRN PRN Reason: Sleep Quetiapine Fumarate (Quetiapine 100 Mg Tab) 300 mg PO QHS [facility] Last Admin: 01/20/21 21:01 Dose: 300 mg Documented by: Sertraline HCl (Sertraline 50 Mg Tab) 50 mg PO QDAY [facility] Last Admin: 01/20/21 09:28 Dose: 50 mg Documented by: Trazodone HCl (Trazodone 50 Mg Tab) 50 mg PO QHS [facility] Last Admin: 01/20/21 21:02 Dose: 50 mg Documented by: Results - Results Labs/Vitals: Laboratory Last Values WBC 10.6 K/mm3 (4.5-11.0) 01/19/21 11:01 RBC 5.23 M/mm3 (3.65-5.03) H 01/19/21 11:01 Hgb 16.7 gm/dl (11.8-15.2) H 01/19/21 11:01 Hct 48.2 % (35.5-45.6) H 01/19/21 11:01 MCV 92 fl (84-94) 01/19/21 11:01 MCH 32 pg (28-32) 01/19/21 11:01 MCHC 35 % (32-34) H 01/19/21 11:01 RDW 13.3 % (13.2-15.2) 01/19/21 11:01 Plt Count 234 K/mm3 (140-440) 01/19/21 11:01 Lymph % (Auto) 26.7 % (13.4-35.0) 01/19/21 11:01 [place] % (Auto) 7.3 % (0.0-7.3) 01/19/21 11:01 Eos % (Auto) 1.4 % (0.0-4.3) 01/19/21 11:01 Baso % (Auto) 0.7 % (0.0-1.8) 01/19/21 11:01 Lymph # (Auto) 2.8 K/mm3 (1.2-5.4) 01/19/21 11:01 [place] # (Auto) 0.8 K/mm3 (0.0-0.8) 01/19/21 11:01 Eos # (Auto) 0.1 K/mm3 (0.0-0.4) 01/19/21 11:01 Baso # (Auto) 0.1 K/mm3 (0.0-0.1) 01/19/21 11:01 Seg Neutrophils % 63.9 % (40.0-70.0) 01/19/21 11:01 Seg Neutrophils # 6.8 K/mm3 (1.8-7.7) 01/19/21 11:01 Sodium 138 mmol/L (137-145) 01/19/21 11:01 Potassium 4.1 mmol/L (3.6-5.0) 01/19/21 11:01 Chloride 103.2 mmol/L (98-107) 01/19/21 11:01 Carbon Dioxide 25 mmol/L (22-30) 01/19/21 11:01 Anion Gap 14 mmol/L 01/19/21 11:01 BUN 17 mg/dL (9-20) 01/19/21 11:01 Creatinine 0.9 mg/dL (0.8-1.3) 01/19/21 11:01 Estimated GFR > 60 ml/min 01/19/21 11:01 BUN/Creatinine Ratio 19 % 01/19/21 11:01 Glucose 108 mg/dL (75-100) H 01/19/21 11:01 POC Glucose 112 mg/dL (70-105) H 01/18/21 06:14 Hemoglobin A1c 5.7 % (4-6) 01/19/21 11:01 Calcium 9.6 mg/dL (8.4-10.2) 01/19/21 11:01 Total Bilirubin 0.30 mg/dL (0.1-1.2) 01/19/21 11:01 AST 18 units/L (5-40) 01/19/21 11:01 ALT 23 units/L (7-56) 01/19/21 11:01 Alkaline Phosphatase 107 units/L (35-129) 01/19/21 11:01 Total Protein 6.5 g/dL (6.3-8.2) 01/19/21 11:01 Albumin 4.0 g/dL (3.9-5) 01/19/21 11:01 Albumin/Globulin Ratio 1.6 % 01/19/21 11:01 Triglycerides 106 mg/dL (2-149) 01/19/21 11:01 Cholesterol 141 mg/dL (50-199) 01/19/21 11:01 LDL Cholesterol Direct 96 mg/dL (50-130) 01/19/21 11:01 HDL Cholesterol 34 mg/dL (40-59) L 01/19/21 11:01 Cholesterol/HDL Ratio 4.14 % 01/19/21 11:01 TSH 0.459 mlU/mL (0.270-4.200) 01/19/21 11:01 Last Vital Signs Temp 98.2 F 01/20/21 20:01 Pulse 83 01/20/21 20:01 Resp 16 01/20/21 20:01 BP 140/85 01/20/21 20:01 Pulse Ox 91 01/20/21 20:01
[2021-01-21] MEDS: amLODIPine 5 MG TAB PO SCH (09:26)
[2021-01-21] MEDS: SERTRALINE 50 MG TAB PO SCH (09:26)
[2021-01-21] MEDS: hydroCHLOROthiazide 25 MG TAB PO SCH (09:26)
[2021-01-21] MEDS: LITHIUM CARBONATE ER 450 MG TAB PO SCH ×2 (09:26→21:16)
[2021-01-21] MEDS: QUEtiapine 100 MG TAB PO SCH (21:16)
[2021-01-21] MEDS: traZODone 50 MG TAB PO SCH (21:16)
--- NOTE | 2021-01-22 07:44 | Progress Note ---
Subjective Date of service: 01/22/21 Subjective Comment: 01/19/2021: The patient was seen resting in bed. He reports that he he feels better. States mood as " relaxed." He reports sleep and appetite as good. the patient reports having intermittent suicidal ideation without a plan. He denies homicidal thoughts and denies hallucinations. Per nurse, the patient had a quiet night. No changes made today. 01/20/2021: The patient was seen resting in bed, he reports doing well. He reports sleep and appetite as good. He denies any current suicidal/homicidal ideation and denies hallucinations. Per nurse, the patient had a quiet night. No changes made today. 01/21/2021: The patient reports doing well. He reports sleep and appetite as good. He denies any current suicidal/homicidal ideation and denies hallucinations. Per nurse, the patient had a quiet night. No changes made today. 01/22/2021: The patient was seen resting in bed, he reports mood as good. The patient is focused on discharge, states pastor Alicia found him a place. He reports sleep and appetite as good. He denies any current suicidal/homicidal ideation and denies hallucinations. Per nurse, the patient had a quiet night. No changes made today. REVIEW OF SYSTEMS Constitutional: Negative for weight loss ENT: Negative for stridor Respiratory: Negative for cough or hemoptysis All other systems reviewed and are negative MENTAL STATUS EXAMINATION General Appearance and Behavior: Age appropriate, good hygiene, wearing appropriate clothes, cooperative, polite Cooperation: Participating/engaged Psychomotor Behavior: normal Mood: "good" Affect and affective range: congruent with stated mood Thought Process: goal directed Thought Content: Not Suicidal Speech: Normal volume, Regular rate and rhythm Suicidal Ideation: No Homicidal Ideation: No Hallucinations: Denies Delusions: None elicited Impulse Control: impaired Insight and Judgment: limited insight and poor judgment, Memory: normal Attention: Normal Orientation: Alert, oriented Assessment and Plan (1) Bipolar Disorder Current Visit: Yes Status: Acute Treatment Plan Patient admitted for inpatient psychiatric evaluation, medication adjustment and close monitoring The patient's behavior, mood, sleep and appetite will be closely monitored. Patient enrolled in individual and group therapeutic sessions and encouraged to attend. Patient provided with a safe and structured environment. Patient's physical health needs will be addressed by the Hospitalist. Hospitalist Consulted Labs including CBC, CMP, Lipid profile and Hemoglobin A1C levels ordered for baseline reference Social Assessment will be completed and the Crossbow Maker will work with patient and family to ensure a suitable and safe disposition Medication adjustment will be made as clinically indicated No changes made today [place] Level- 01/22/2021 Continue home medications Usual Wellness Confucianism/Preservation: - Start Trazodone 50 mg po QHS & 50 mg po QHS PRN between 10 PM & 2 AM for insomnia - Start Melatonin 5 mg po QHS to promote circadian rhythm The patient agreed on the treatment plan, understood the risk, benefit, alternative treatment, potential consequence of no treatment, and gave informed consent. Estimated days: 4 Post hospital care: primary care provider, psychiatric provider Case staffed with Dr. Song Legal Status: Voluntary Reaction to Hospitalization: Accepting Medications and Allergies Medications and Allergies Allergies Allergy/AdvReac Type Severity Reaction Status Date / Time benztropine [From Cogentin] Allergy Itching Verified 08/04/18 08:18 chlorpromazine HCl Allergy Itching Verified 08/04/18 08:18 [From Thorazine] fluoxetine HCl [From Prozac] Allergy Swelling Verified 08/04/18 08:18 haloperidol [From Haldol] Allergy Itching Verified 08/04/18 08:18 haloperidol lactate Allergy Itching Verified 08/04/18 08:18 [From Haldol] propranolol HCl Allergy Itching Verified 08/04/18 08:18 [From Inderal LA] Home Medications Medication Instructions Recorded Confirmed Last Taken Type Albuterol Mdi (or & Nicu Only) 1 puff IH QID PRN #1 inha 04/14/19 01/17/21 Unknown Rx [ProAir HFA Inhaler] Amlodipine Besylate [Norvasc] 5 mg PO QDAY #30 tab 04/14/19 01/17/21 Unknown Rx [place] Carbonate [[place] 450 mg PO BID 04/14/19 01/17/21 04/14/19 08:00 History Carbonate ER] 450 Melatonin [Melatonin 5MG TAB] 5 mg PO QHS PRN #30 tablet 03/01/20 01/17/21 Unknown Rx [place]-3 Fatty Acids/Fish Oil [Fish 2,000 mg PO BID #60 capsule 03/01/20 01/17/21 Unknown Rx Oil] Quetiapine Fumarate [SEROquel] 300 mg PO QHS #30 03/01/20 01/17/21 Unknown Rx Sertraline [Zoloft] 50 mg PO QDAY #30 tablet 03/01/20 01/17/21 Unknown Rx hydroCHLOROthiazide [HCTZ] 25 mg PO QDAY tablet 03/01/20 01/17/21 Unknown Rx traZODone [Desyrel] 50 mg PO QHS #30 tablet 03/01/20 01/17/21 Unknown Rx Mupirocin [Bactroban 2% OINT] 1 applic TP TID 5 Days #1 tube 03/09/20 01/17/21 Unknown Rx hydroCHLOROthiazide [HCTZ] 25 mg PO QDAY 01/17/21 01/17/21 Unknown History Active Meds: Active Medications Amlodipine Besylate (Amlodipine 5 Mg Tab) 5 mg PO QDAY [facility] Last Admin: 01/21/21 09:26 Dose: 5 mg Documented by: Hydrochlorothiazide (Hydrochlorothiazide 25 Mg Tab) 25 mg PO QDAY [facility] Last Admin: 01/21/21 09:26 Dose: 25 mg Documented by: [place] Carbonate ([place] Carbonate Er 450 Mg Tab) 450 mg PO BID [facility] Last Admin: 01/21/21 21:16 Dose: 450 mg Documented by: Melatonin (Melatonin 5 Mg Tab) 5 mg PO QHS PRN PRN Reason: Sleep Quetiapine Fumarate ([facility] 100 Mg Tab) [facility] Last Admin: 01/21/21 21:16 Dose: 300 mg Documented by: Sertraline HCl (Sertraline 50 Mg Tab) 50 mg PO QDAY [facility] Last Admin: 01/21/21 09:26 Dose: 50 mg Documented by: Trazodone HCl (Trazodone 50 Mg Tab) 50 mg PO QHS [facility] Last Admin: 01/21/21 21:16 Dose: 50 mg Documented by: Results - Results Labs/Vitals: Laboratory Last Values WBC 10.6 K/mm3 (4.5-11.0) 01/19/21 11:01 RBC 5.23 M/mm3 (3.65-5.03) H 01/19/21 11:01 Hgb 16.7 gm/dl (11.8-15.2) H 01/19/21 11:01 Hct 48.2 % (35.5-45.6) H 01/19/21 11:01 MCV 92 fl (84-94) 01/19/21 11:01 MCH 32 pg (28-32) 01/19/21 11:01 MCHC 35 % (32-34) H 01/19/21 11:01 RDW 13.3 % (13.2-15.2) 01/19/21 11:01 Plt Count 234 K/mm3 (140-440) 01/19/21 11:01 Lymph % (Auto) 26.7 % (13.4-35.0) 01/19/21 11:01 [place] % (Auto) 7.3 % (0.0-7.3) 01/19/21 11:01 Eos % (Auto) 1.4 % (0.0-4.3) 01/19/21 11:01 Baso % (Auto) 0.7 % (0.0-1.8) 01/19/21 11:01 Lymph # (Auto) 2.8 K/mm3 (1.2-5.4) 01/19/21 11:01 [place] # (Auto) 0.8 K/mm3 (0.0-0.8) 01/19/21 11:01 Eos # (Auto) 0.1 K/mm3 (0.0-0.4) 01/19/21 11:01 Baso # (Auto) 0.1 K/mm3 (0.0-0.1) 01/19/21 11:01 Seg Neutrophils % 63.9 % (40.0-70.0) 01/19/21 11:01 Seg Neutrophils # 6.8 K/mm3 (1.8-7.7) 01/19/21 11:01 Sodium 138 mmol/L (137-145) 01/19/21 11:01 Potassium 4.1 mmol/L (3.6-5.0) 01/19/21 11:01 Chloride 103.2 mmol/L (98-107) 01/19/21 11:01 Carbon Dioxide 25 mmol/L (22-30) 01/19/21 11:01 Anion Gap 14 mmol/L 01/19/21 11:01 BUN 17 mg/dL (9-20) 01/19/21 11:01 Creatinine 0.9 mg/dL (0.8-1.3) 01/19/21 11:01 Estimated GFR > 60 ml/min 01/19/21 11:01 BUN/Creatinine Ratio 19 % 01/19/21 11:01 Glucose 108 mg/dL (75-100) H 01/19/21 11:01 POC Glucose 112 mg/dL (70-105) H 01/18/21 06:14 Hemoglobin A1c 5.7 % (4-6) 01/19/21 11:01 Calcium 9.6 mg/dL (8.4-10.2) 01/19/21 11:01 Total Bilirubin 0.30 mg/dL (0.1-1.2) 01/19/21 11:01 AST 18 units/L (5-40) 01/19/21 11:01 ALT 23 units/L (7-56) 01/19/21 11:01 Alkaline Phosphatase 107 units/L (35-129) 01/19/21 11:01 Total Protein 6.5 g/dL (6.3-8.2) 01/19/21 11:01 Albumin 4.0 g/dL (3.9-5) 01/19/21 11:01 Albumin/Globulin Ratio 1.6 % 01/19/21 11:01 Triglycerides 106 mg/dL (2-149) 01/19/21 11:01 Cholesterol 141 mg/dL (50-199) 01/19/21 11:01 LDL Cholesterol Direct 96 mg/dL (50-130) 01/19/21 11:01 HDL Cholesterol 34 mg/dL (40-59) L 01/19/21 11:01 Cholesterol/HDL Ratio 4.14 % 01/19/21 11:01 TSH 0.459 mlU/mL (0.270-4.200) 01/19/21 11:01 Last Vital Signs Temp 97.5 F L 01/21/21 21:00 Pulse 88 01/21/21 21:00 Resp 18 01/21/21 21:00 BP 155/97 01/21/21 21:00 Pulse Ox 94 01/21/21 21:00
[2021-01-22] MEDS: amLODIPine 5 MG TAB PO SCH (09:44)
[2021-01-22] MEDS: LITHIUM CARBONATE ER 450 MG TAB PO SCH ×2 (09:44→21:00)
[2021-01-22] MEDS: SERTRALINE 50 MG TAB PO SCH (09:44)
[2021-01-22] MEDS: hydroCHLOROthiazide 25 MG TAB PO SCH (09:44)
[2021-01-22] MEDS: QUEtiapine 100 MG TAB PO SCH (21:00)
[2021-01-22] MEDS: traZODone 50 MG TAB PO SCH (21:01)
[2021-01-23] MEDS: amLODIPine 5 MG TAB PO SCH (10:03)
[2021-01-23] MEDS: SERTRALINE 50 MG TAB PO SCH (10:03)
[2021-01-23] MEDS: LITHIUM CARBONATE ER 450 MG TAB PO SCH ×2 (10:04→21:18)
[2021-01-23] MEDS: hydroCHLOROthiazide 25 MG TAB PO SCH (10:04)
--- NOTE | 2021-01-23 13:12 | Progress Note ---
Subjective Date of service: 01/23/21 Subjective Comment: 01/19/2021: The patient was seen resting in bed. He reports that he he feels better. States mood as " relaxed." He reports sleep and appetite as good. the patient reports having intermittent suicidal ideation without a plan. He denies homicidal thoughts and denies hallucinations. Per nurse, the patient had a quiet night. No changes made today. 01/20/2021: The patient was seen resting in bed, he reports doing well. He reports sleep and appetite as good. He denies any current suicidal/homicidal ideation and denies hallucinations. Per nurse, the patient had a quiet night. No changes made today. 01/21/2021: The patient reports doing well. He reports sleep and appetite as good. He denies any current suicidal/homicidal ideation and denies hallucinations. Per nurse, the patient had a quiet night. No changes made today. 01/22/2021: The patient was seen resting in bed, he reports mood as good. The patient is focused on discharge, states pastor Alicia found him a place. He reports sleep and appetite as good. He denies any current suicidal/homicidal ideation and denies hallucinations. Per nurse, the patient had a quiet night. No changes made today. 01/23/2021: The patient was seen eating breakfast, he reports doing well. He reports sleep and appetite as good. He denies any current suicidal/homicidal ideation and denies hallucinations. Per nurse, the patient had a quiet night. No changes made today. The patient is awaiting placement. REVIEW OF SYSTEMS Constitutional: Negative for weight loss ENT: Negative for stridor Respiratory: Negative for cough or hemoptysis All other systems reviewed and are negative MENTAL STATUS EXAMINATION General Appearance and Behavior: Age appropriate, good hygiene, wearing appropriate clothes, cooperative, polite Cooperation: Participating/engaged Psychomotor Behavior: normal Mood: "good" Affect and affective range: congruent with stated mood Thought Process: goal directed Thought Content: Not Suicidal Speech: Normal volume, Regular rate and rhythm Suicidal Ideation: No Homicidal Ideation: No Hallucinations: Denies Delusions: None elicited Impulse Control: impaired Insight and Judgment: limited insight and poor judgment, Memory: normal Attention: Normal Orientation: Alert, oriented Assessment and Plan (1) Bipolar Disorder Current Visit: Yes Status: Acute Treatment Plan Patient admitted for inpatient psychiatric evaluation, medication adjustment and close monitoring The patient's behavior, mood, sleep and appetite will be closely monitored. Patient enrolled in individual and group therapeutic sessions and encouraged to attend. Patient provided with a safe and structured environment. Patient's physical health needs will be addressed by the Hospitalist. Hospitalist Consulted Labs including CBC, CMP, Lipid profile and Hemoglobin A1C levels ordered for baseline reference Social Assessment will be completed and the Health Aid will work with patient and family to ensure a suitable and safe disposition Medication adjustment will be made as clinically indicated No changes made today [place] Level- 01/22/2021 Continue home medications Usual Wellness Religion/Preservation: - Start Trazodone 50 mg po QHS & 50 mg po QHS PRN between 10 PM & 2 AM for insomnia - Start Melatonin 5 mg po QHS to promote circadian rhythm The patient agreed on the treatment plan, understood the risk, benefit, alternative treatment, potential consequence of no treatment, and gave informed consent. Estimated days: 4 Post hospital care: primary care provider, psychiatric provider Case staffed with Dr. Song Legal Status: Voluntary Reaction to Hospitalization: Accepting Medications and Allergies Medications and Allergies Allergies Allergy/AdvReac Type Severity Reaction Status Date / Time benztropine [From Cogentin] Allergy Itching Verified 08/04/18 08:18 chlorpromazine HCl Allergy Itching Verified 08/04/18 08:18 [From Thorazine] fluoxetine HCl [From Prozac] Allergy Swelling Verified 08/04/18 08:18 haloperidol [From Haldol] Allergy Itching Verified 08/04/18 08:18 haloperidol lactate Allergy Itching Verified 08/04/18 08:18 [From Haldol] propranolol HCl Allergy Itching Verified 08/04/18 08:18 [From Inderal LA] Home Medications Medication Instructions Recorded Confirmed Last Taken Type Albuterol Mdi (or & Nicu Only) 1 puff IH QID PRN #1 inha 04/14/19 01/17/21 Unknown Rx [ProAir HFA Inhaler] Amlodipine Besylate [Norvasc] 5 mg PO QDAY #30 tab 04/14/19 01/17/21 Unknown Rx [place] Carbonate [[place] 450 mg PO BID 04/14/19 01/17/21 04/14/19 08:00 History Carbonate ER] 450 Melatonin [Melatonin 5MG TAB] 5 mg PO QHS PRN #30 tablet 03/01/20 01/17/21 Unknown Rx [place]-3 Fatty Acids/Fish Oil [Fish 2,000 mg PO BID #60 capsule 03/01/20 01/17/21 Unknown Rx Oil] Quetiapine Fumarate [SEROquel] 300 mg PO QHS #30 03/01/20 01/17/21 Unknown Rx Sertraline [Zoloft] 50 mg PO QDAY #30 tablet 03/01/20 01/17/21 Unknown Rx hydroCHLOROthiazide [HCTZ] 25 mg PO QDAY tablet 03/01/20 01/17/21 Unknown Rx traZODone [Desyrel] 50 mg PO QHS #30 tablet 03/01/20 01/17/21 Unknown Rx Mupirocin [Bactroban 2% OINT] 1 applic TP TID 5 Days #1 tube 03/09/20 01/17/21 Unknown Rx hydroCHLOROthiazide [HCTZ] 25 mg PO QDAY 01/17/21 01/17/21 Unknown History Active Meds: Active Medications Amlodipine Besylate (Amlodipine 5 Mg Tab) 5 mg PO QDAY [facility] Last Admin: 01/23/21 10:03 Dose: 5 mg Documented by: Hydrochlorothiazide (Hydrochlorothiazide 25 Mg Tab) 25 mg PO QDAY [facility] Last Admin: 01/23/21 10:04 Dose: 25 mg Documented by: [place] Carbonate ([place] Carbonate Er 450 Mg Tab) 450 mg PO BID [facility] Last Admin: 01/23/21 10:04 Dose: 450 mg Documented by: Melatonin (Melatonin 5 Mg Tab) 5 mg PO QHS PRN PRN Reason: Sleep Quetiapine Fumarate (Quetiapine 100 Mg Tab) 300 mg PO QHS [facility] Last Admin: 01/22/21 21:00 Dose: 300 mg Documented by: Sertraline HCl (Sertraline 50 Mg Tab) 50 mg PO QDAY [facility] Last Admin: 01/23/21 10:03 Dose: 50 mg Documented by: Trazodone HCl (Trazodone 50 Mg Tab) 50 mg PO QHS [facility] Last Admin: 01/22/21 21:01 Dose: 50 mg Documented by: Results - Results Labs/Vitals: Laboratory Last Values WBC 10.6 K/mm3 (4.5-11.0) 01/19/21 11:01 RBC 5.23 M/mm3 (3.65-5.03) H 01/19/21 11:01 Hgb 16.7 gm/dl (11.8-15.2) H 01/19/21 11:01 Hct 48.2 % (35.5-45.6) H 01/19/21 11:01 MCV 92 fl (84-94) 01/19/21 11:01 MCH 32 pg (28-32) 01/19/21 11:01 MCHC 35 % (32-34) H 01/19/21 11:01 RDW 13.3 % (13.2-15.2) 01/19/21 11:01 Plt Count 234 K/mm3 (140-440) 01/19/21 11:01 Lymph % (Auto) 26.7 % (13.4-35.0) 01/19/21 11:01 [place] % (Auto) 7.3 % (0.0-7.3) 01/19/21 11:01 Eos % (Auto) 1.4 % (0.0-4.3) 01/19/21 11:01 Baso % (Auto) 0.7 % (0.0-1.8) 01/19/21 11:01 Lymph # (Auto) 2.8 K/mm3 (1.2-5.4) 01/19/21 11:01 [place] # (Auto) 0.8 K/mm3 (0.0-0.8) 01/19/21 11:01 Eos # (Auto) 0.1 K/mm3 (0.0-0.4) 01/19/21 11:01 Baso # (Auto) 0.1 K/mm3 (0.0-0.1) 01/19/21 11:01 Seg Neutrophils % 63.9 % (40.0-70.0) 01/19/21 11:01 Seg Neutrophils # 6.8 K/mm3 (1.8-7.7) 01/19/21 11:01 Sodium 138 mmol/L (137-145) 01/19/21 11:01 Potassium 4.1 mmol/L (3.6-5.0) 01/19/21 11:01 Chloride 103.2 mmol/L (98-107) 01/19/21 11:01 Carbon Dioxide 25 mmol/L (22-30) 01/19/21 11:01 Anion Gap 14 mmol/L 01/19/21 11:01 BUN 17 mg/dL (9-20) 01/19/21 11:01 Creatinine 0.9 mg/dL (0.8-1.3) 01/19/21 11:01 Estimated GFR > 60 ml/min 01/19/21 11:01 BUN/Creatinine Ratio 19 % 01/19/21 11:01 Glucose 108 mg/dL (75-100) H 01/19/21 11:01 POC Glucose 112 mg/dL (70-105) H 01/18/21 06:14 Hemoglobin A1c 5.7 % (4-6) 01/19/21 11:01 Calcium 9.6 mg/dL (8.4-10.2) 01/19/21 11:01 Total Bilirubin 0.30 mg/dL (0.1-1.2) 01/19/21 11:01 AST 18 units/L (5-40) 01/19/21 11:01 ALT 23 units/L (7-56) 01/19/21 11:01 Alkaline Phosphatase 107 units/L (35-129) 01/19/21 11:01 Total Protein 6.5 g/dL (6.3-8.2) 01/19/21 11:01 Albumin 4.0 g/dL (3.9-5) 01/19/21 11:01 Albumin/Globulin Ratio 1.6 % 01/19/21 11:01 Triglycerides 106 mg/dL (2-149) 01/19/21 11:01 Cholesterol 141 mg/dL (50-199) 01/19/21 11:01 LDL Cholesterol Direct 96 mg/dL (50-130) 01/19/21 11:01 HDL Cholesterol 34 mg/dL (40-59) L 01/19/21 11:01 Cholesterol/HDL Ratio 4.14 % 01/19/21 11:01 TSH 0.459 mlU/mL (0.270-4.200) 01/19/21 11:01 [place] 0.7 mmol/L (0.0-1.2) 01/22/21 07:18 Last Vital Signs Temp 98.7 F 01/23/21 07:46 Pulse 78 01/23/21 10:03 Resp 18 01/23/21 07:46 BP 141/91 01/23/21 10:03 Pulse Ox 93 01/23/21 07:46
[2021-01-23] MEDS: traZODone 50 MG TAB PO SCH (21:18)
[2021-01-23] MEDS: QUEtiapine 100 MG TAB PO SCH (21:18)
--- NOTE | 2021-01-24 08:35 | Discharge Summary ---
Providers - Providers Date of Admission: 01/17/21 13:15 Date of discharge: 01/24/21 Attending physician: NATHANAEL MESSINA MD 01/16/21 19:01 Consult to Physician [CONS] Routine Comment: Consulting Provider: PITER BAIRD Physician Instructions: Reason For Exam: manage medical conditions Primary care physician: MICROBIOLOGY PROFESSOR Hospitalization Reason for admission: Bipolar Condition: Stable Hospital course: The patient was provided inpatient psychiatric treatment with safe and supportive environment, group/individual therapy, psychiatric medication, medication adjustment, adverse effect monitor, medical evaluation, medical treatment, social service assessment, social support meeting, placement assessment and psycho-education. The patients mood, cognition, behavior, motivation, compliance to treatment and appreciation on family/social support are improved and stabilized. At the time of discharge, the patient had no suicidal ideas, no homicidal ideas, no aggressive thoughts, no endangering behavior and no debilitating adverse effects. The patient agreed on the treatment plan, understood the risk, benefit, alternative treatment, potential consequence of no treatment, and gave informed consent. Progress Note: 01/19/2021: The patient was seen resting in bed. He reports that he he feels better. States mood as " relaxed." He reports sleep and appetite as good. the patient reports having intermittent suicidal ideation without a plan. He denies homicidal thoughts and denies hallucinations. Per nurse, the patient had a quiet night. No changes made today. 01/20/2021: The patient was seen resting in bed, he reports doing well. He reports sleep and appetite as good. He denies any current suicidal/homicidal ideation and denies hallucinations. Per nurse, the patient had a quiet night. No changes made today. 01/21/2021: The patient reports doing well. He reports sleep and appetite as good. He denies any current suicidal/homicidal ideation and denies hallucinations. Per nurse, the patient had a quiet night. No changes made today. 01/22/2021: The patient was seen resting in bed, he reports mood as good. The patient is focused on discharge, states weld lay out worker J found him a place. He reports sleep and appetite as good. He denies any current suicidal/homicidal ideation and denies hallucinations. Per nurse, the patient had a quiet night. No changes made today. 01/23/2021: The patient was seen eating breakfast, he reports doing well. He reports sleep and appetite as good. He denies any current suicidal/homicidal ideation and denies hallucinations. Per nurse, the patient had a quiet night. No changes made today. The patient is awaiting placement. Disposition: DC-30 STILL A PATIENT Allergies/Adverse Reactions: Allergies benztropine [From Cogentin] Allergy (Verified 08/04/18 08:18) Itching chlorpromazine HCl [From Thorazine] Allergy (Verified 08/04/18 08:18) Itching fluoxetine HCl [From Prozac] Allergy (Verified 08/04/18 08:18) Swelling haloperidol [From Haldol] Allergy (Verified 08/04/18 08:18) Itching haloperidol lactate [From Haldol] Allergy (Verified 08/04/18 08:18) Itching propranolol HCl [From Inderal LA] Allergy (Verified 08/04/18 08:18) Itching Vital Signs: Last Vital Signs Temp 98.1 F 01/23/21 21:20 Pulse 91 H 01/23/21 21:20 Resp 18 01/23/21 21:20 BP 148/100 01/23/21 21:20 Pulse Ox 95 01/23/21 21:20 Last Lab: Laboratory Last Values WBC 10.6 K/mm3 (4.5-11.0) 01/19/21 11:01 RBC 5.23 M/mm3 (3.65-5.03) H 01/19/21 11:01 Hgb 16.7 gm/dl (11.8-15.2) H 01/19/21 11:01 Hct 48.2 % (35.5-45.6) H 01/19/21 11:01 MCV 92 fl (84-94) 01/19/21 11:01 MCH 32 pg (28-32) 01/19/21 11:01 MCHC 35 % (32-34) H 01/19/21 11:01 RDW 13.3 % (13.2-15.2) 01/19/21 11:01 Plt Count 234 K/mm3 (140-440) 01/19/21 11:01 Lymph % (Auto) 26.7 % (13.4-35.0) 01/19/21 11:01 [place] % (Auto) 7.3 % (0.0-7.3) 01/19/21 11:01 Eos % (Auto) 1.4 % (0.0-4.3) 01/19/21 11:01 Baso % (Auto) 0.7 % (0.0-1.8) 01/19/21 11:01 Lymph # (Auto) 2.8 K/mm3 (1.2-5.4) 01/19/21 11:01 [place] # (Auto) 0.8 K/mm3 (0.0-0.8) 01/19/21 11:01 Eos # (Auto) 0.1 K/mm3 (0.0-0.4) 01/19/21 11:01 Baso # (Auto) 0.1 K/mm3 (0.0-0.1) 01/19/21 11:01 Seg Neutrophils % 63.9 % (40.0-70.0) 01/19/21 11:01 Seg Neutrophils # 6.8 K/mm3 (1.8-7.7) 01/19/21 11:01 Sodium 138 mmol/L (137-145) 01/19/21 11:01 Potassium 4.1 mmol/L (3.6-5.0) 01/19/21 11:01 Chloride 103.2 mmol/L (98-107) 01/19/21 11:01 Carbon Dioxide 25 mmol/L (22-30) 01/19/21 11:01 Anion Gap 14 mmol/L 01/19/21 11:01 BUN 17 mg/dL (9-20) 01/19/21 11:01 Creatinine 0.9 mg/dL (0.8-1.3) 01/19/21 11:01 Estimated GFR > 60 ml/min 01/19/21 11:01 BUN/Creatinine Ratio 19 % 01/19/21 11:01 Glucose 108 mg/dL (75-100) H 01/19/21 11:01 POC Glucose 112 mg/dL (70-105) H 01/18/21 06:14 Hemoglobin A1c 5.7 % (4-6) 01/19/21 11:01 Calcium 9.6 mg/dL (8.4-10.2) 01/19/21 11:01 Total Bilirubin 0.30 mg/dL (0.1-1.2) 01/19/21 11:01 AST 18 units/L (5-40) 01/19/21 11:01 ALT 23 units/L (7-56) 01/19/21 11:01 Alkaline Phosphatase 107 units/L (35-129) 01/19/21 11:01 Total Protein 6.5 g/dL (6.3-8.2) 01/19/21 11:01 Albumin 4.0 g/dL (3.9-5) 01/19/21 11:01 Albumin/Globulin Ratio 1.6 % 01/19/21 11:01 Triglycerides 106 mg/dL (2-149) 01/19/21 11:01 Cholesterol 141 mg/dL (50-199) 01/19/21 11:01 LDL Cholesterol Direct 96 mg/dL (50-130) 01/19/21 11:01 HDL Cholesterol 34 mg/dL (40-59) L 01/19/21 11:01 Cholesterol/HDL Ratio 4.14 % 01/19/21 11:01 TSH 0.459 mlU/mL (0.270-4.200) 01/19/21 11:01 [place] 0.7 mmol/L (0.0-1.2) 01/22/21 07:18 Core Measure Documentation - Palliative Care Palliative Care/ Comfort Measures: Not Applicable - Core Measures Any of the following diagnoses?: none - VTE Discharge Requirements Deep Vein Thrombosis/Pulmonary Embolism Present on Admission: No Exam - Constitutional Vitals: Temp Pulse Resp BP Pulse Ox 98.1 F 91 H 18 148/100 95 01/23/21 21:20 01/23/21 21:20 01/23/21 21:20 01/23/21 21:20 01/23/21 21:20 Plan Activity: advance as tolerated Weight Bearing Status: Weight Bear as Tolerated Diet: regular Care Plan Goals: Maintain good and stable mental health. Plan of Treatment: The patient should be compliant with medications, not to use drugs and not to drink alcohol. The patient understands that if suicidal ideas, homicidal ideas, or any endangering thoughts arise, the patient should immediately seek for emergent assistance including but not limited to crisis hot line and emergency room. Follow up with outpatient Psychiatrist and PCP within 7 - 14 days of discharge. Follow up with: PRIMARY CARE,MD [Primary Care Provider] - 7 Days Prescriptions: traZODone [Desyrel] 50 mg PO QHS 30 Days #30 tablet Sertraline [Zoloft] 50 mg PO QDAY 30 Days #30 tablet
[2021-01-24 08:40] VITALS: BP 138/87
[2021-01-24] MEDS: amLODIPine 5 MG TAB PO SCH (09:07)
[2021-01-24] MEDS: LITHIUM CARBONATE ER 450 MG TAB PO SCH (09:07)
[2021-01-24] MEDS: SERTRALINE 50 MG TAB PO SCH (09:07)
[2021-01-24] MEDS: hydroCHLOROthiazide 25 MG TAB PO SCH (09:07)
== END 2021-01-24 11:30 | disposition home or self-care (01) | DRG 885 ==
LOC: 3A 16:09 → UNDOADMIN 16:09 → 5A 01-17 13:15
PROVIDERS: ADMIT Psychiatry & Neurology Psychiatry; ATTEND Psychiatry & Neurology Psychiatry
DX: F31.9 Bipolar disorder, unspecified (principal); I10 Essential (primary) hypertension; E78.5 Hyperlipidemia, unspecified; F17.200 Nicotine dependence, unspecified, uncomplicated; E78.00 Pure hypercholesterolemia, unspecified; Z79.899 Other long term (current) drug therapy; Z79.891 Long term (current) use of opiate analgesic; Z79.01 Long term (current) use of anticoagulants; Z88.8 Allergy status to other drugs, medicaments and biological substances; Z88.5 Allergy status to narcotic agent
CPT/HCPCS: 36415; 80053; 80061; 80178; 82962; 83036; 84443; 85025; G0378

== ENCOUNTER 2021-03-21 05:56 | Emergency (ER) | payer MEDICARE ==
[2021-03-21] MEDS ORDERED: hydrALAZINE 10 MG TAB PO ONE (08:16)
--- NOTE | 2021-03-21 08:17 | Emergency Department Report ---
ED General Adult HPI - General Chief complaint: Neck Pain/Injury Stated complaint: NECK/SHOULDER PAIN Time Seen by Provider: 03/21/21 08:12 Source: patient, EMS Mode of arrival: Stretcher Limitations: No Limitations - History of Present Illness Initial comments: 50-year-old male patient presents with complaints of elevated blood pressure x2 days. He states the pressure being elevated is causing his left shoulder to hurt. Shoulder pain radiates down his left arm and he rates it as a 2/10 in severity. Patient denies any chest pain or shortness of breath. No history of heart disease or family history of heart disease per patient. He re ports he has been out of his lisinopril/hydrochlorothiazide x2 days. Patient also denies any cough or headache. He states he is otherwise feeling well and is requesting refill of his meds. Patient also has history of bipolar disorder. - Related Data Home Medications Medication Instructions Recorded Confirmed Last Taken [place] Carbonate [[place] 450 mg PO BID 04/14/19 01/17/21 04/14/19 08:00 Carbonate ER] 450 hydroCHLOROthiazide [HCTZ] 25 mg PO QDAY 01/17/21 01/17/21 Unknown Previous Rx's Medication Instructions Recorded Last Taken Type Albuterol Mdi (or & Nicu Only) 1 puff IH QID PRN #1 inha 04/14/19 Unknown Rx [ProAir HFA Inhaler] Amlodipine Besylate [Norvasc] 5 mg PO QDAY #30 tab 04/14/19 Unknown Rx Melatonin [Melatonin 5MG TAB] 5 mg PO QHS PRN #30 tablet 03/01/20 Unknown Rx [place]-3 Fatty Acids/Fish Oil [Fish 2,000 mg PO BID #60 capsule 03/01/20 Unknown Rx Oil] Quetiapine Fumarate [SEROquel] 300 mg PO QHS #30 03/01/20 Unknown Rx hydroCHLOROthiazide [HCTZ] 25 mg PO QDAY tablet 03/01/20 Unknown Rx traZODone [Desyrel] 50 mg PO QHS #30 tablet 03/01/20 Unknown Rx Mupirocin [Bactroban 2% OINT] 1 applic TP TID 5 Days #1 tube 03/09/20 Unknown Rx [place] Carbonate ER [Lithobid ER] 450 mg PO BID tablet 01/24/21 Unknown Rx Sertraline [Zoloft] 50 mg PO QDAY 30 Days #30 tablet 01/24/21 Unknown Rx amLODIPine 5 mg PO QDAY tablet 01/24/21 Unknown Rx hydroCHLOROthiazide [HCTZ] 25 mg PO QDAY tablet 01/24/21 Unknown Rx traZODone [Desyrel] 50 mg PO QHS 30 Days #30 tablet 01/24/21 Unknown Rx Lisinopril/Hydrochlorothiazide 1 each PO QDAY 30 Days #30 tablet 03/21/21 Unk nown Rx [Zestoretic 10-12.5 mg Tablet] Allergies Allergy/AdvReac Type Severity Reaction Status Date / Time benztropine [From Cogentin] Allergy Itching Verified 08/04/18 08:18 chlorpromazine HCl Allergy Itching Verified 08/04/18 08:18 [From Thorazine] fluoxetine HCl [From Prozac] Allergy Swelling Verified 08/04/18 08:18 haloperidol [From Haldol] Allergy Itching Verified 08/04/18 08:18 haloperidol lactate Allergy Itching Verified 08/04/18 08:18 [From Haldol] propranolol HCl Allergy Itching Verified 08/04/18 08:18 [From Inderal LA] ED Review of Systems ROS: Stated complaint: NECK/SHOULDER PAIN Other details as noted in HPI Constitutional: denies: chills, diaphoresis, fever, malaise, weakness Respiratory: denies: cough, shortness of breath Cardiovascular: denies: chest pain Gastrointestinal: denies: abdominal pain, nausea, vomiting Neurological: denies: headache, numbness, paresthesias, confusion, abnormal gait, vertigo ED Past Medical Hx - Past Medical History Hx Hypertension: Yes Hx Congestive Heart Failure: No Hx Diabetes: No Hx Renal Disease: No Hx Arthritis: No Hx Seizures: No Hx Psychiatric Treatment: Yes (depression, bi-polar, schizophrenia) Hx Asthma: No Hx COPD: No Hx Dementia: No Additional medical history: high cholesterol - Surgical History Hx Cholecystectomy: No Hx Appendectomy: No - Social History Smoking Status: Heavy Tobacco Smoker - Medications Home Medications: Home Medications Medication Instructions Recorded Confirmed Last Taken Type Albuterol Mdi (or & Nicu Only) 1 puff IH QID PRN #1 inha 04/14/19 01/17/21 Unknown Rx [ProAir HFA Inhaler] Amlodipine Besylate [Norvasc] 5 mg PO QDAY #30 tab 04/14/19 01/17/21 Unknown Rx [place] Carbonate [[place] 450 mg PO BID 04/14/19 01/17/21 04/14/19 08:00 History Carbonate ER] 450 Melatonin [Melatonin 5MG TAB] 5 mg PO QHS PRN #30 tablet 03/01/20 01/17/21 Unknown Rx [place]-3 Fatty Acids/Fish Oil [Fish 2,000 mg PO BID #60 capsule 03/01/20 01/17/21 Unknown Rx Oil] Quetiapine Fumarate [SEROquel] 300 mg PO QHS #30 03/01/20 01/17/21 Unknown Rx hydroCHLOROthiazide [HCTZ] 25 mg PO QDAY tablet 03/01/20 01/17/21 Unknown Rx traZODone [Desyrel] 50 mg PO QHS #30 tablet 03/01/20 01/17/21 Unknown Rx Mupirocin [Bactroban 2% OINT] 1 applic TP TID 5 Days #1 tube 03/09/20 01/17/21 Unknown Rx hydroCHLOROthiazide [HCTZ] 25 mg PO QDAY 01/17/21 01/17/21 Unknown History [place] Carbonate ER [Lithobid ER] 450 mg PO BID tablet 01/24/21 Unknown Rx Sertraline [Zoloft] 50 mg PO QDAY 30 Days #30 tablet 01/24/21 Unknown Rx amLODIPine 5 mg PO QDAY tablet 01/24/21 Unknown Rx hydroCHLOROthiazide [HCTZ] 25 mg PO QDAY tablet 01/24/21 Unknown Rx traZODone [Desyrel] 50 mg PO QHS 30 Days #30 tablet 01/24/21 Unknown Rx Lisinopril/Hydrochlorothiazide 1 each PO QDAY 30 Days #30 tablet 03/21/21 Unknown Rx [Zestoretic 10-12.5 mg Tablet] ED Physical Exam - General Limitations: No Limitations General appearance: alert, in no apparent distress, obese - Head Head exam: Present: atraumatic, normocephalic - Eye Eye exam: Present: normal appearance. Absent: scleral icterus - Neck Neck exam: Present: normal inspection - Respiratory Respiratory exam: Present: normal lung sounds bilaterally. Absent: respiratory distress - Cardiovascular Cardiovascular Exam: Present: regular rate, normal rhythm - Expanded Upper Extremity Exam Left Shoulder Exam: Present: normal inspection, full ROM Upper Arm exam: Present: normal inspection Elbow exam: Present: normal inspection Forearm Wrist exam: Present: normal inspection Hand Wrist exam: Present: normal inspection - Neurological Exam Neurological exam: Present: alert, oriented X3, normal gait - Psychiatric Psychiatric exam: Present: normal affect, normal mood - Skin Skin exam: Present: warm, dry, intact, normal color. Absent: rash ED Course Vital Signs 03/21/21 03/21/21 06:00 09:50 Temperature 97.9 F Pulse Rate 85 79 Respiratory 18 18 Rate Blood Pressure 189/104 190/116 [Left] O2 Sat by Pulse 96 Oximetry ED Medical Decision Making - Lab Data Result diagrams: 03/21/21 08:18 03/21/21 08:18 Lab Results 03/21/21 03/21/21 Range/Units 08:18 08:18 WBC 11.4 H (4.5-11.0) K/mm3 RBC 4.94 (3.65-5.03) M/mm3 Hgb 15.6 H (11.8-15.2) gm/dl Hct 44.5 (35.5-45.6) % MCV 90 (84-94) fl MCH 32 (28-32) pg MCHC 35 H (32-34) % RDW 13.7 (13.2-15.2) % Plt Count 241 (140-440) K/mm3 Lymph % (Auto) 33.6 (13.4-35.0) % [place] % (Auto) 7.0 (0.0-7.3) % Eos % (Auto) 1.1 (0.0-4.3) % Baso % (Auto) 0.8 (0.0-1.8) % Lymph # (Auto) 3.8 (1.2-5.4) K/mm3 [place] # (Auto) 0.8 (0.0-0.8) K/mm3 Eos # (Auto) 0.1 (0.0-0.4) K/mm3 Baso # (Auto) 0.1 (0.0-0.1) K/mm3 Seg Neutrophils % 57.5 (40.0-70.0) % Seg Neutrophils # 6.6 (1.8-7.7) K/mm3 Sodium 140 (137-145) mmol/L Potassium 3.7 (3.6-5.0) mmol/L Chloride 106.5 (98-107) mmol/L Carbon Dioxide 21 L (22-30) mmol/L Anion Gap 16 mmol/L BUN 11 (9-20) mg/dL Creatinine 0.8 (0.8-1.3) mg/dL Estimated GFR > 60 ml/min BUN/Creatinine Ratio 14 % Glucose 118 H (75-100) mg/dL Calcium 8.8 (8.4-10.2) mg/dL Troponin T < 0.010 (0.00-0.029) ng/mL - EKG Data EKG shows normal: sinus rhythm Rate: normal - EKG Data Interpretation: normal EKG - Medical Decision Making 50-year-old male patient presents with complaints of elevated blood pressure x2 days. He states the pressure being elevated is causing his left shoulder to hurt. Shoulder pain radiates down his left arm and he rates it as a 2/10 in severity. Patient denies any chest pain or shortness of breath. No history of heart disease or family history of heart disease per patient. He reports he has been out of his lisinopril/hydrochlorothiazide x2 days. Patient also denies any cough or headache. He states he is otherwise feeling well and is requesting refill of his meds. Patient also has history of bipolar disorder. No acute abnormalities noted on CBC, BMP, or troponin. EKG is normal. Patient continues to deny any chest pain. He is well-appearing, he is neurologically intact, he is stable for discharge home. Discussed importance of compliance with blood pressure medication and need for follow-up with primary care doctor within 3 to 5 days. Strict return precautions were discussed in detail patient verbalizes understanding. Critical care attestation.: If time is entered above; I have spent that time in minutes in the direct care of this critically ill patient, excluding procedure time. ED Disposition Clinical Impression: Elevated blood pressure reading, Medication refill Disposition: 01 HOME / SELF CARE / HOMELESS Is pt being admited?: No Condition: Stable Instructions: Managing Your Hypertension Prescriptions: Lisinopril/Hydrochlorothiazide [Zestoretic 10-12.5 mg Tablet] 1 each PO QDAY 30 Days #30 tablet Referrals: [facility] [Provider Group] - 3-5 Days PRIMARY CARE, [Primary Care Provider] - 3-5 Days
[2021-03-21 08:33] LABS: Basophils # (Auto) 0.1 K/mm3 (0.0-0.1); Basophils % (Auto) 0.8 % (0.0-1.8); Eosinophils # (Auto) 0.1 K/mm3 (0.0-0.4); Eosinophils % (Auto) 1.1 % (0.0-4.3); Hematocrit 44.5 % (35.5-45.6); Hemoglobin 15.6 gm/dl (11.8-15.2); Lymphocytes # (Auto) 3.8 K/mm3 (1.2-5.4); Lymphocytes % (Auto) 33.6 % (13.4-35.0); Mean Corpuscular HGB Conc 35 % (32-34); Mean Corpuscular Volume 90 fl (84-94); Monocytes # (Auto) 0.8 K/mm3 (0.0-0.8); Platelet Count 241 K/mm3 (140-440); Red Blood Count 4.94 M/mm3 (3.65-5.03); Red Cell Distribution Width 13.7 % (13.2-15.2)
[2021-03-21 08:56] LABS: BUN/Creatinine Ratio 14; Blood Urea Nitrogen 11 mg/dL (9-20); Calcium 8.8 mg/dL (8.4-10.2); Hemolysis Index 10
[2021-03-21 09:52] VITALS: BP 190/116
--- NOTE | 2021-03-21 11:08 | Electrocardiograph Report ---
[facility] Test Date: 2021-03-21 Test Time: 09:07:44 Pat Name: ARJUN MIRANDA JR Department: Room: Gender: M Dial Mounter: AMA : 1970 Requested By: MONTANA CAMARILLO Order Number: [id number] Reading MD: Demond Mccormack Measurements Intervals [place] Rate: 82 P: 21 TN: 177 QRS: 16 QRSD: 95 T: 60 QT: 402 QTc: 470 Interpretive Statements Sinus rhythm No previous ECG available for comparison Electronically Signed On 03-21-2021 11:08:19 EDT by Demond Mccormack
== END 2021-03-21 09:52 | disposition home or self-care (01) ==
LOC: ED 05:56
DX: M54.2 Cervicalgia (principal); M25.512 Pain in left shoulder; I10 Essential (primary) hypertension; Z76.0 Encounter for issue of repeat prescription; F20.9 Schizophrenia, unspecified; F32.9 Major depressive disorder, single episode, unspecified; E78.00 Pure hypercholesterolemia, unspecified; F17.290 Nicotine dependence, other tobacco product, uncomplicated; Z88.8 Allergy status to other drugs, medicaments and biological substances; Z88.9 Allergy status to unspecified drugs, medicaments and biological substances
CPT/HCPCS: 36415; 80048; 84484; 85025; 93005; 99283

== ENCOUNTER 2021-06-06 19:28 | Emergency (ER) | payer MEDICARE ==
[2021-06-06 21:17] LABS: Basophils # (Auto) 0.2 K/mm3 (0.0-0.1); Basophils % (Auto) 1.8 % (0.0-1.8); Eosinophils # (Auto) 0.1 K/mm3 (0.0-0.4); Eosinophils % (Auto) 0.7 % (0.0-4.3); Hematocrit 47.2 % (35.5-45.6); Hemoglobin 15.7 gm/dl (11.8-15.2); Lymphocytes # (Auto) 1.9 K/mm3 (1.2-5.4); Lymphocytes % (Auto) 19.7 % (13.4-35.0); Mean Corpuscular HGB Conc 33 % (32-34); Mean Corpuscular Volume 92 fl (84-94); Monocytes # (Auto) 0.5 K/mm3 (0.0-0.8); Monocytes % (Auto) 5.2 % (0.0-7.3); Platelet Count 208 K/mm3 (140-440); Red Blood Count 5.16 M/mm3 (3.65-5.03)
--- NOTE | 2021-06-06 21:21 | Emergency Department Report ---
HPI - General Chief Complaint: Psych Time Seen by Provider: 06/06/21 20:12 - HPI HPI: 50-year-old male presents to the emergency department with complaint of nonspecific suicidal and homicidal ideations after having a fight with his this evening. He has a history of bipolar disorder and schizophrenia. He says he is compliant with his medications. He also has a past medical history of hypertension and hyperlipidemia. The patient is a tobacco smoker but denies any illicit drug use. He denies any auditory or visual hallucinations cu rrently. ED Past Medical Hx - Past Medical History Hx Hypertension: Yes Hx Congestive Heart Failure: No Hx Diabetes: No Hx Renal Disease: No Hx Arthritis: No Hx Seizures: No Hx Psychiatric Treatment: Yes (depression, bi-polar, schizophrenia) Hx Asthma: No Hx COPD: No Hx Dementia: No Additional medical history: high cholesterol - Surgical History Hx Cholecystectomy: No Hx Appendectomy: No - Social History Smoking Status: Heavy Tobacco Smoker - Medications Home Medications: Home Medications Medication Instructions Recorded Confirmed Last Taken Type Albuterol Mdi (or & Nicu Only) 1 puff IH QID PRN #1 inha 04/14/19 01/17/21 U nknown Rx [ProAir HFA Inhaler] Amlodipine Besylate [Norvasc] 5 mg PO QDAY #30 tab 04/14/19 01/17/21 Unknown Rx [place] Carbonate [[place] 450 mg PO BID 04/14/19 01/17/21 04/14/19 08:00 Histo ry Carbonate ER] 450 Melatonin [Melatonin 5MG TAB] 5 mg PO QHS PRN #30 tablet 03/01/20 01/17/21 Unknown Rx [place]-3 Fatty Acids/Fish Oil [Fish 2,000 mg PO BID #60 capsule 03/01/20 01/17/21 Unknown Rx Oil] Quetiapine Fumarate [SEROquel] 300 mg PO QHS #30 03/01/20 01/17/21 Unknown Rx hydroCHLOROthiazide [HCTZ] 25 mg PO QDAY tablet 03/01/20 01/17/21 Unknown Rx traZODone [Desyrel] 50 mg PO QHS #30 tablet 03/01/20 01/17/21 Unknown Rx Mupirocin [Bactroban 2% OINT] 1 applic TP TID 5 Days #1 tube 03/09/20 01/17/21 Unknown Rx hydroCHLOROthiazide [HCTZ] 25 mg PO QDAY 01/17/21 01/17/21 Unknown History [place] Carbonate ER [Lithobid ER] 450 mg PO BID tablet 01/24/21 Unknown Rx Sertraline [Zoloft] 50 mg PO QDAY 30 Days #30 tablet 01/24/21 Unknown Rx amLODIPine 5 mg PO QDAY tablet 01/24/21 Unknown Rx hydroCHLOROthiazide [HCTZ] 25 mg PO QDAY tablet 01/24/21 Unknown Rx traZODone [Desyrel] 50 mg PO QHS 30 Days #30 tablet 01/24/21 Unknown Rx Lisinopril/Hydrochlorothiazide 1 each PO QDAY 30 Days #30 tablet 03/21/21 Unknown Rx [Zestoretic 10-12.5 mg Tablet] Ketorolac [Toradol] 10 mg PO Q8H PRN #10 tablet 05/25/21 Unknown Rx ED Review of Systems ROS: Stated complaint: suicidal Other details as noted in HPI Comment: All other systems reviewed and negative Constitutional: denies: chills, fever Respiratory: denies: cough, shortness of breath Cardiovascular: denies: chest pain, palpitations Gastrointestinal: denies: abdominal pain, vomiting Musculoskeletal: denies: back pain, arthralgia Neurological: denies: headache, weakness Psychiatric: homicidal thoughts, suicidal thoughts. denies: auditory staton ucinations, visual hallucinations Physical Exam - Physical Exam Vital Signs: Vital Signs 06/06/21 19:28 Temperature 98.0 F Pulse Rate 98 H Respiratory 18 Rate Blood Pressure 157/89 [Left] O2 Sat by Pulse 99 Oximetry Physical Exam: GENERAL: The patient is well-developed well-nourished. HENT: Normocephalic. Atraumatic. Patient has moist mucous membranes. EYES: Extraocular motions are intact. NECK: Supple. Trachea is midline. CHEST/LUNGS: Clear to auscultation. There is no respiratory distress noted. HEART/CARDIOVASCULAR: Regular. There is no tachycardia. There is no murmur. ABDOMEN: Abdomen is soft, nontender. Patient has normal bowel sounds. SKIN: Skin is warm and dry. NEURO: The patient is awake, alert, and oriented. The patient is cooperative. Normal speech. MUSCULOSKELETAL: There is no tenderness or deformity. There is no limitation range of motion. ED Course Vital Signs 06/06/21 19:28 Temperature 98.0 F Pulse Rate 98 H Respiratory 18 Rate Blood Pressure 157/89 [Left] O2 Sat by Pulse 99 Oximetry ED Medical Decision Making - Lab Data Result diagrams: 06/06/21 20:27 06/06/21 20:27 Lab Results 06/06/21 06/06/21 06/06/21 Range/Units 20:27 20:27 20:27 WBC 9.9 (4.5-11.0) K/mm3 RBC 5.16 H (3.65-5.03) M/mm3 Hgb 15.7 H (11.8-15.2) gm/dl Hct 47.2 H (35.5-45.6) % MCV 92 (84-94) fl MCH 30 (28-32) pg MCHC 33 (32-34) % RDW 14.0 (13.2-15.2) % Plt Count 208 (140-440) K/mm3 Lymph % (Auto) 19.7 (13.4-35.0) % [place] % (Auto) 5.2 (0.0-7.3) % Eos % (Auto) 0.7 (0.0-4.3) % Baso % (Auto) 1.8 (0.0-1.8) % Lymph # (Auto) 1.9 (1.2-5.4) K/mm3 [place] # (Auto) 0.5 (0.0-0.8) K/mm3 Eos # (Auto) 0.1 (0.0-0.4) K/mm3 Baso # (Auto) 0.2 H (0.0-0.1) K/mm3 Seg Neutrophils % 72.6 H (40.0-70.0) % Seg Neutrophils # 7.2 (1.8-7.7) K/mm3 Sodium 140 (137-145) mmol/L Potassium 3.6 (3.6-5.0) mmol/L Chloride 106.5 (98-107) mmol/L Carbon Dioxide 20 L (22-30) mmol/L Anion Gap 17 mmol/L BUN 9 (9-20) mg/dL Creatinine 1.0 (0.8-1.3) mg/dL Estimated GFR > 60 ml/min BUN/Creatinine Ratio 9 % Glucose 109 H (75-100) mg/dL Calcium 8.9 (8.4-10.2) mg/dL Urine Color (Yellow) Urine Turbidity (Clear) Urine pH (5.0-7.0) Ur Specific [place] (1.003-1.030) Urine Protein (Negative) mg/dL Urine Glucose (UA) (Negative) mg/dL Urine Ketones (Negative) mg/dL Urine Blood (Negative) Urine Nitrite (Negative) Urine Bilirubin (Negative) Urine Urobilinogen (<2.0) mg/dL Ur Leukocyte Esterase (Negative) Urine WBC (Auto) (0.0-6.0) /HPF Urine RBC (Auto) (0.0-6.0) /HPF U Epithel Cells (Auto) (0-13.0) /HPF Urine Mucus /HPF Urine Opiates Screen Urine Methadone Screen Ur Barbiturates Screen Ur Phencyclidine Scrn Ur Amphetamines Screen U Benzodiazepines Scrn Urine Cocaine Screen U Marijuana (THC) Screen Drugs of Abuse Note Plasma/Serum Alcohol < 0.01 (0-0.07) % 06/06/21 06/06/21 Range/Units 21:12 21:12 WBC (4.5-11.0) K/mm3 RBC (3.65-5.03) M/mm3 Hgb (11.8-15.2) gm/dl Hct (35.5-45.6) % MCV (84-94) fl MCH (28-32) pg MCHC (32-34) % RDW (13.2-15.2) % Plt Count (140-440) K/mm3 Lymph % (Auto) (13.4-35.0) % [place] % (Auto) (0.0-7.3) % Eos % (Auto) (0.0-4.3) % Baso % (Auto) (0.0-1.8) % Lymph # (Auto) (1.2-5.4) K/mm3 [place] # (Auto) (0.0-0.8) K/mm3 Eos # (Auto) (0.0-0.4) K/mm3 Baso # (Auto) (0.0-0.1) K/mm3 Seg Neutrophils % (40.0-70.0) % Seg Neutrophils # (1.8-7.7) K/mm3 Sodium (137-145) mmol/L Potassium (3.6-5.0) mmol/L Chloride (98-107) mmol/L Carbon Dioxide (22-30) mmol/L Anion Gap mmol/L BUN (9-20) mg/dL Creatinine (0.8-1.3) mg/dL Estimated GFR ml/min BUN/Creatinine Ratio % Glucose (75-100) mg/dL Calcium (8.4-10.2) mg/dL Urine Color Yellow (Yellow) Urine Turbidity Clear (Clear) Urine pH 5.0 (5.0-7.0) Ur Specific [place] 1.016 (1.003-1.030) Urine Protein <15 mg/dl (Negative) mg/dL Urine Glucose (UA) Neg (Negative) mg/dL Urine Ketones Neg (Negative) mg/dL Urine Blood Neg (Negative) Urine Nitrite Neg (Negative) Urine Bilirubin Neg (Negative) Urine Urobilinogen < 2.0 (<2.0) mg/dL Ur Leukocyte Esterase Neg (Negative) Urine WBC (Auto) 3.0 (0.0-6.0) /HPF Urine RBC (Auto) < 1.0 (0.0-6.0) /HPF U Epithel Cells (Auto) < 1.0 (0-13.0) /HPF Urine Mucus 1+ /HPF Urine Opiates Screen Presumptive negative Urine Methadone Screen Presumptive negative Ur Barbiturates Screen Presumptive negative Ur Phencyclidine Scrn Presumptive negative Ur Amphetamines Screen Presumptive negative U Benzodiazepines Scrn Presumptive negative Urine Cocaine Screen Presumptive negative U Marijuana (THC) Screen Presumptive negative Drugs of Abuse Note Disclamer Plasma/Serum Alcohol (0-0.07) % - Medical Decision Making This patient presents for a mental health evaluation with nonspecific suicidal ideations and homicidal ideations towards his . For this reason the patient has been placed on a 1013 and an ED hold. He was seen by the psychiatric reception clerk who agrees with this plan for inpatient stabilization. Labs have been unremarkable including CBC, metabolic panel, blood alcohol level, urinalysis and UDS. Vital signs reassuring thus far including being afebrile. The patient is medically cleared for psychiatric placement. Critical Care Time: No Critical care attestation.: If time is entered above; I have spent that time in minutes in the direct care of this critically ill patient, excluding procedure time. ED Disposition Clinical Impression: Suicidal ideation, Homicidal ideation Disposition: [address] [place] [address] Is pt being admited?: No Condition: Stable Time of Disposition: 23:18
[2021-06-06 21:34] LABS: BUN/Creatinine Ratio 9; Blood Urea Nitrogen 9 mg/dL (9-20); Calcium 8.9 mg/dL (8.4-10.2); Hemolysis Index 32
[2021-06-06 23:05] LABS: Bilirubin,Urine NEG (Negative); Blood,Urine NEG (Negative); Color,Urine Yellow (Yellow); Mucus,Urine 1+ /HPF; Protein,Urine <15 mg/dL mg/dL (Negative); RBC,Urine < 1.0 /HPF (0.0-6.0); Urobilinogen,Urine < 2.0 mg/dL (<2.0)
[2021-06-06 23:14] LABS: Amphetamine Screen,Urine PRESUMPTIVE NEGATIVE; Benzodiazepines Screen,Urine PRESUMPTIVE NEGATIVE; Cannabinoid Screen,Urine PRESUMPTIVE NEGATIVE; Cocaine Screen,Urine PRESUMPTIVE NEGATIVE; Methadone Screen,Urine PRESUMPTIVE NEGATIVE; Opiate Screen,Urine PRESUMPTIVE NEGATIVE
[2021-06-06] MEDS ORDERED: NICOTINE 14 MG/24 HR PATCH TD ONE (23:18)
--- NOTE | 2021-06-07 10:22 | Consultation ---
History of Present Illness - Reason for Consult Consult date: 06/07/21 Reason for consult: sucidal ideation - History of Present Psychiatric Illness ED Note: 50-year-old male presents to the emergency department with complaint of nonspecific suicidal and homicidal ideations after having a fight with his this evening. He has a history of bipolar disorder and schizophrenia. He says he is compliant with his medications. He also has a past medical history of hypertension and hyperlipidemia. The patient is a tobacco smoker but denies any illicit drug use. He denies any auditory or visual hallucinations currently. All Christopher is a 50 year old male with history of Bipolar, depression, schizophrenia who presents to the ED with complaint of nonspecific suicidal and homicidal ideation. In my interview with the patient, he is calm. alert and oriented x2. The patient reports an ongoing depression for the past 2 weeks. He reports getting into an argument with his yesterday which he states resulted in him trying to cut himself with a knife but his took the knife away from him. He reports non compliance with psychotropic medications; states he last took meds about 4 days ago. The patient endorses suicidal ideation without a plan. He denies any current homicidal ideation and denies hallucinat ions. Diagnoses: Bipolar, depression, schizophrenia Suicide attempts or Self-harm behavior: Prior psychiatric hospitalizations: Substance Abuse history: Previous psychiatric medications tried: Outpatient treatment: PAST MEDICAL HISTORY: HTN, Arthritis Family Psychiatric History: None reported or documented SOCIAL HISTORY Marital Status: Living Arrangements: Homeless Employment Status: On disability Access to guns/weapons: none reported Education: 10th History of Abuse: Legal History: REVIEW OF SYSTEMS Constitutional: Negative for weight loss ENT: Negative for stridor Respiratory: Negative for cough or hemoptysis All other systems reviewed and are negative MENTAL STATUS EXAMINATION General Appearance and Behavior: Age appropriate, fair hygiene, wearing appropriate clothes, lying in bed, good eye contact, cooperative polite with questioning. Cooperation: Participating/engaged Psychomotor Behavior: Psychomotor agitation Mood: Depressed Affect and affective range:congruent to stated mood Thought Process: Circumstantial Thought Content: reality oriented Speech: Normal volume, Regular rate and rhythm Intellectual Functioning: Average Suicidal Ideation: Suicidal Homicidal Ideation: Denies HI Impulse Control: Impaired Insight and Judgment: Limited insight and poor judgment Memory: Normal, Attention: Normal Orientation: Alert, oriented Assessment and Plan - Psychiatric problem (1) Schizoaffective disorder, bipolar type Current Visit: Yes Status: Acute Treatment Plan MEDICATIONS: Continue prescribed medications Risks, benefits and alternatives of medications discussed with the patient, questions answered and consent obtained from patient. PSYCHOTHERAPY: Supportive psychotherapy provided MEDICAL: Per primary team DELIRIUM PRECAUTIONS: Please re-orient patient frequently, keep lights on during the day, and minimize benzodiazepines and opiates as these medications could worsen patient's confusion. [employer]GER: DISPOSITION: Recommend acute inpatient psychiatric hospitalization at this time. LEGAL STATUS: 1013 FOLLOW-UP: Will follow Thank you for the consult. Please contact with any questions and/or concerns. Medications and Allergies Allergies Allergy/AdvReac Type Severity Reaction Status Date / Time benztropine [From Cogentin] Allergy Itching Verified 08/04/18 08:18 chlorpromazine HCl Allergy Itching Verified 08/04/18 08:18 [From Thorazine] fluoxetine HCl [From Prozac] Allergy Swelling Verified 08/04/18 08:18 haloperidol [From Haldol] Allergy Itching Verified 08/04/18 08:18 haloperidol lactate Allergy Itching Verified 08/04/18 08:18 [From Haldol] propranolol HCl Allergy Itching Verified 08/04/18 08:18 [From Inderal LA] Home Medications Medication Instructions Recorded Confirmed Last Taken Type Albuterol Mdi (or & Nicu Only) 1 puff IH QID PRN #1 inha 04/14/19 01/17/21 Unknown Rx [ProAir HFA Inhaler] Amlodipine Besylate [Norvasc] 5 mg PO QDAY #30 tab 04/14/19 01/17/21 Unknown Rx [place] Carbonate [[place] 450 mg PO BID 04/14/19 01/17/21 04/14/19 08:00 History Carbonate ER] 450 Melatonin [Melatonin 5MG TAB] 5 mg PO QHS PRN #30 tablet 03/01/20 01/17/21 Unknown Rx [place]-3 Fatty Acids/Fish Oil [Fish 2,000 mg PO BID #60 capsule 03/01/20 01/17/21 Unknown Rx Oil] Quetiapine Fumarate [SEROquel] 300 mg PO QHS #30 03/01/20 01/17/21 Unknown Rx hydroCHLOROthiazide [HCTZ] 25 mg PO QDAY tablet 03/01/20 01/17/21 Unknown Rx traZODone [Desyrel] 50 mg PO QHS #30 tablet 03/01/20 01/17/21 Unknown Rx Mupirocin [Bactroban 2% OINT] 1 applic TP TID 5 Days #1 tube 03/09/20 01/17/21 Unknown Rx hydroCHLOROthiazide [HCTZ] 25 mg PO QDAY 01/17/21 01/17/21 Unknown History [place] Carbonate ER [Lithobid ER] 450 mg PO BID tablet 01/24/21 Unknown Rx Sertraline [Zoloft] 50 mg PO QDAY 30 Days #30 tablet 01/24/21 Unknown Rx amLODIPine 5 mg PO QDAY tablet 01/24/21 Unknown Rx hydroCHLOROthiazide [HCTZ] 25 mg PO QDAY tablet 01/24/21 Unknown Rx traZODone [Desyrel] 50 mg PO QHS 30 Days #30 tablet 01/24/21 Unknown Rx Lisinopril/Hydrochlorothiazide 1 each PO QDAY 30 Days #30 tablet 03/21/21 Unknown Rx [Zestoretic 10-12.5 mg Tablet] Ketorolac [Toradol] 10 mg PO Q8H PRN #10 tablet 05/25/21 Unknown Rx Mental Status Exam - Vital signs Last Vital Signs Temp 98.9 F 06/07/21 02:55 Pulse 82 06/07/21 02:55 Resp 18 06/07/21 05:26 BP 138/81 06/07/21 02:55 Pulse Ox 96 06/07/21 05:26 Results Result Diagrams: 06/06/21 20:27 06/06/21 20:27 Abnormal lab results 06/06/21 06/06/21 Range/Units 20:27 20:27 RBC 5.16 H (3.65-5.03) M/mm3 Hgb 15.7 H (11.8-15.2) gm/dl Hct 47.2 H (35.5-45.6) % Baso # (Auto) 0.2 H (0.0-0.1) K/mm3 Seg Neutrophils % 72.6 H (40.0-70.0) % Carbon Dioxide 20 L (22-30) mmol/L Glucose 109 H (75-100) mg/dL All other labs normal.
[2021-06-07] MEDS ORDERED: MELATONIN 5 MG TAB PO PRN (10:29)
[2021-06-07] MEDS ORDERED: LORazepam 2 MG/ML VIAL IM PRN (11:36)
[2021-06-07] MEDS ORDERED: ALBUTEROL 8.5 GM MDI INHALATION IH PRN (11:36)
[2021-06-07] MEDS: LITHIUM CARBONATE ER 450 MG TAB PO SCH ×2 (11:37→22:57)
--- NOTE | 2021-06-07 11:38 | Event Note ---
Date: 06/07/21 The patient was evaluated in the emergency department for symptoms described in the history of present illness. He/she was evaluated in the context of the global COVID-19 pandemic, which necessitated consideration that the patient might be at risk for infection with the virus that causes COVID-19. Institutional protocols and algorithms that pertain to the evaluation of patients at risk for COVID-19 are in a state of rapid change based on information released by regulatory bodies including the CDC and federal and state organizations. These policies and algorithms were followed during the patient's care in the emergency department. Please note that these policies, procedures and recommendations changed on a rapid basis. Laboratory studies, vital signs, nursing documentation, ER documentation, and psychiatric documentation are reviewed and appreciated. Nursing team reports no acute events this morning or concerns. The patient is awake and and does not appear to be in any acute distress. Nursing team endorses no acute issues per The patient was deemed medically suitable for psychiatric disposition and placement during his initial ER evaluation. The patient continues to remain medically suitable for psychiatric placement and disposition. He is currently pending psychiatric placement. Presuming negative Covid test, he will be placed on our fifth floor geriatric psychiatry unit. Vital Signs 06/06/21 06/06/21 06/07/21 19:28 21:52 02:55 Temperature 98.0 F 98.0 F 98.9 F Pulse Rate 98 H 91 H 82 Respiratory 18 18 18 Rate Blood Pressure 157/89 142/85 138/81 [Left] O2 Sat by Pulse 99 96 92 Oximetry 06/07/21 05:26 Temperature Pulse Rate Respiratory 18 Rate Blood Pressure [Left] O2 Sat by Pulse 96 Oximetry Lab Results 06/06/21 06/06/21 06/06/21 Range/Units 20:27 20:27 20:27 WBC 9.9 (4.5-11.0) K/mm3 RBC 5.16 H (3.65-5.03) M/mm3 Hgb 15.7 H (11.8-15.2) gm/dl Hct 47.2 H (35.5-45.6) % MCV 92 (84-94) fl MCH 30 (28-32) pg MCHC 33 (32-34) % RDW 14.0 (13.2-15.2) % Plt Count 208 (140-440) K/mm3 Lymph % (Auto) 19.7 (13.4-35.0) % [place] % (Auto) 5.2 (0.0-7.3) % Eos % (Auto) 0.7 (0.0-4.3) % Baso % (Auto) 1.8 (0.0-1.8) % Lymph # (Auto) 1.9 (1.2-5.4) K/mm3 [place] # (Auto) 0.5 (0.0-0.8) K/mm3 Eos # (Auto) 0.1 (0.0-0.4) K/mm3 Baso # (Auto) 0.2 H (0.0-0.1) K/mm3 Seg Neutrophils % 72.6 H (40.0-70.0) % Seg Neutrophils # 7.2 (1.8-7.7) K/mm3 Sodium 140 (137-145) mmol/L Potassium 3.6 (3.6-5.0) mmol/L Chloride 106.5 (98-107) mmol/L Carbon Dioxide 20 L (22-30) mmol/L Anion Gap 17 mmol/L BUN 9 (9-20) mg/dL Creatinine 1.0 (0.8-1.3) mg/dL Estimated GFR > 60 ml/min BUN/Creatinine Ratio 9 % Glucose 109 H (75-100) mg/dL Calcium 8.9 (8.4-10.2) mg/dL Urine Color (Yellow) Urine Turbidity (Clear) Urine pH (5.0-7.0) Ur Specific [place] (1.003-1.030) Urine Protein (Negative) mg/dL Urine Glucose (UA) (Negative) mg/dL Urine Ketones (Negative) mg/dL Urine Blood (Negative) Urine Nitrite (Negative) Urine Bilirubin (Negative) Urine Urobilinogen (<2.0) mg/dL Ur Leukocyte Esterase (Negative) Urine WBC (Auto) (0.0-6.0) /HPF Urine RBC (Auto) (0.0-6.0) /HPF U Epithel Cells (Auto) (0-13.0) /HPF Urine Mucus /HPF Urine Opiates Screen Urine Methadone Screen Ur Barbiturates Screen Ur Phencyclidine Scrn Ur Amphetamines Screen U Benzodiazepines Scrn Urine Cocaine Screen U Marijuana (THC) Screen Drugs of Abuse Note Plasma/Serum Alcohol < 0.01 (0-0.07) % 06/06/21 06/06/21 Range/Units 21:12 21:12 WBC (4.5-11.0) K/mm3 RBC (3.65-5.03) M/mm3 Hgb (11.8-15.2) gm/dl Hct (35.5-45.6) % MCV (84-94) fl MCH (28-32) pg MCHC (32-34) % RDW (13.2-15.2) % Plt Count (140-440) K/mm3 Lymph % (Auto) (13.4-35.0) % [place] % (Auto) (0.0-7.3) % Eos % (Auto) (0.0-4.3) % Baso % (Auto) (0.0-1.8) % Lymph # (Auto) (1.2-5.4) K/mm3 [place] # (Auto) (0.0-0.8) K/mm3 Eos # (Auto) (0.0-0.4) K/mm3 Baso # (Auto) (0.0-0.1) K/mm3 Seg Neutrophils % (40.0-70.0) % Seg Neutrophils # (1.8-7.7) K/mm3 Sodium (137-145) mmol/L Potassium (3.6-5.0) mmol/L Chloride (98-107) mmol/L Carbon Dioxide (22-30) mmol/L Anion Gap mmol/L BUN (9-20) mg/dL Creatinine (0.8-1.3) mg/dL Estimated GFR ml/min BUN/Creatinine Ratio % Glucose (75-100) mg/dL Calcium (8.4-10.2) mg/dL Urine Color Yellow (Yellow) Urine Turbidity Clear (Clear) Urine pH 5.0 (5.0-7.0) Ur Specific [place] 1.016 (1.003-1.030) Urine Protein <15 mg/dl (Negative) mg/dL Urine Glucose (UA) Neg (Negative) mg/dL Urine Ketones Neg (Negative) mg/dL Urine Blood Neg (Negative) Urine Nitrite Neg (Negative) Urine Bilirubin Neg (Negative) Urine Urobilinogen < 2.0 (<2.0) mg/dL Ur Leukocyte Esterase Neg (Negative) Urine WBC (Auto) 3.0 (0.0-6.0) /HPF Urine RBC (Auto) < 1.0 (0.0-6.0) /HPF U Epithel Cells (Auto) < 1.0 (0-13.0) /HPF Urine Mucus 1+ /HPF Urine Opiates Screen Presumptive negative Urine Methadone Screen Presumptive negative Ur Barbiturates Screen Presumptive negative Ur Phencyclidine Scrn Presumptive negative Ur Amphetamines Screen Presumptive negative U Benzodiazepines Scrn Presumptive negative Urine Cocaine Screen Presumptive negative U Marijuana (THC) Screen Presumptive negative Drugs of Abuse Note Disclamer Plasma/Serum Alcohol (0-0.07) %
[2021-06-07] MEDS ORDERED: amLODIPine 5 MG TAB PO SCH (13:00)
[2021-06-07 21:08] VITALS: BP 124/70
[2021-06-07] MEDS ORDERED: NON-FORMULARY EACH (Quetiapine Fumarate [Seroquel] 300 MG Tablet) PO SCH (22:00)
[2021-06-07] MEDS ORDERED: QUEtiapine 100 MG TAB PO SCH (22:00)
[2021-06-07] MEDS ORDERED: traZODone 50 MG TAB PO SCH (22:00)
[2021-06-07] MEDS ORDERED: HYDROGEN PEROXIDE 118 ML SOLUTION TP ONE (22:14)
== END 2021-06-08 02:22 ==
LOC: ED 19:28
DX: R45.851 Suicidal ideations (principal); R45.850 Homicidal ideations; F17.200 Nicotine dependence, unspecified, uncomplicated; F31.9 Bipolar disorder, unspecified; F20.9 Schizophrenia, unspecified; Z20.822 Contact with and (suspected) exposure to COVID-19
CPT/HCPCS: 36415; 80048; 80307; 81001; 85025; 99285; U0003; 80320; G0480

== ENCOUNTER 2021-09-29 17:07 | Emergency (ER) | payer MEDICARE ==
--- NOTE | 2021-09-29 21:09 | Emergency Department Report ---
ED Recheck HPI - General Chief Complaint: High BP Stated Complaint: BP MEDICINE REFILL Time Seen by Provider: 09/29/21 19:56 Source: patient Mode of arrival: Ambulatory Limitations: No Limitations - History of Present Illness Initial Comments: This is a 51-year-old male nontoxic, well nourished in appearance, no acute signs of distress presents to the ED for medication refill. They state he has been taking HCTZ, lisinopril and Norvasc and has been out of his medication the past few days. Otherwise patient denies any other symptoms or complaints. Denies any chest pain, shortness of breath, fever, chills, nausea, vomiting, headache or stiff neck. MD Complaint: medication refill request -: days(s) Returns Today for: request for prescription Symptoms Since Prior Visit: no new symptoms Associated Symptoms: none. denies: fever, chills, chest pain, shortness of breath, rash, malaise, [place], abdominal pain - Related Data Home Medications Medication Instructions Recorded Confirmed Last Taken [place] Carbonate [[place] 450 mg PO BID 04/14/19 01/17/21 04/14/19 08:00 Carbonate ER] 450 hydroCHLOROthiazide [HCTZ] 25 mg PO QDAY 01/17/21 01/17/21 Unknown Previous Rx's Medication Instructions Recorded Last Taken Type Albuterol Mdi (or & Nicu Only) 1 puff IH QID PRN #1 inha 04/14/19 Unknown Rx [ProAir HFA Inhaler] Amlodipine Besylate [Norvasc] 5 mg PO QDAY #30 tab 04/14/19 Unknown Rx Melatonin [Melatonin 5MG TAB] 5 mg PO QHS PRN #30 tablet 03/01/20 Unknown Rx [place]-3 Fatty Acids/Fish Oil [Fish 2,000 mg PO BID #60 capsule 03/01/20 Unknown Rx Oil] Quetiapine Fumarate [SEROquel] 300 mg PO QHS #30 03/01/20 Unknown Rx hydroCHLOROthiazide [HCTZ] 25 mg PO QDAY tablet 03/01/20 Unknown Rx traZODone [Desyrel] 50 mg PO QHS #30 tablet 03/01/20 Unknown Rx Mupirocin [Bactroban 2% OINT] 1 applic TP TID 5 Days #1 tube 03/09/20 Unknown Rx [place] Carbonate ER [Lithobid ER] 450 mg PO BID tablet 01/24/21 Unknown Rx Sertraline [Zoloft] 50 mg PO QDAY 30 Days #30 tablet 01/24/21 Unknown Rx amLODIPine 5 mg PO QDAY tablet 01/24/21 Unknown Rx hydroCHLOROthiazide [HCTZ] 25 mg PO QDAY tablet 01/24/21 Unknown Rx traZODone [Desyrel] 50 mg PO QHS 30 Days #30 tablet 01/24/21 Unknown Rx Lisinopril/Hydrochlorothiazide 1 each PO QDAY 30 Days #30 tablet 03/21/21 Unknown Rx [Zestoretic 10-12.5 mg Tablet] Ketorolac [Toradol] 10 mg PO Q8H PRN #10 tablet 05/25/21 Unknown Rx amLODIPine 10 mg PO DAILY #30 tab 09/29/21 Unknown Rx hydroCHLOROthiazide [Hctz] 12.5 mg PO QDAY #30 capsule 09/29/21 Unknown Rx lisinopriL [Lisinopril] 10 mg PO DAILY #30 tab 09/29/21 Unknown Rx Allergies Allergy/AdvReac Type Severity Reaction Status Date / Time benztropine [From Cogentin] Allergy Itching Verified 08/04/18 08:18 chlorpromazine HCl Allergy Itching Verified 08/04/18 08:18 [From Thorazine] fluoxetine HCl [From Prozac] Allergy Swelling Verified 08/04/18 08:18 haloperidol [From Haldol] Allergy Itching Verified 08/04/18 08:18 haloperidol lactate Allergy Itching Verified 08/04/18 08:18 [From Haldol] propranolol HCl Allergy Itching Verified 08/04/18 08:18 [From Inderal LA] ED Review of Systems ROS: Stated complaint: BP MEDICINE REFILL Other details as noted in HPI Comment: All other systems reviewed and negative Constitutional: denies: chills, fever Eyes: denies: eye pain, eye discharge, vision change ENT: denies: ear pain, throat pain Respiratory: denies: cough, shortness of breath, wheezing Cardiovascular: denies: chest pain, palpitations Endocrine: no symptoms reported Gastrointestinal: denies: abdominal pain, nausea, diarrhea Genitourinary: denies: urgency, dysuria Musculoskeletal: denies: back pain, joint swelling, arthralgia Skin: denies: rash, lesions Neurological: denies: headache, weakness, paresthesias Psychiatric: denies: anxiety, depression Hematological/Lymphatic: denies: easy bleeding, easy bruising ED Past Medical Hx - Past Medical History Hx Hypertension: Yes Hx Congestive Heart Failure: No Hx Diabetes: No Hx Renal Disease: No Hx Arthritis: No Hx Seizures: No Hx Psychiatric Treatment: Yes (depression, bi-polar, schizophrenia) Hx Asthma: No Hx COPD: No Hx Dementia: No Additional medical history: high cholesterol - Surgical History Hx Cholecystectomy: No Hx Appendectomy: No - Social History Smoking Status: Heavy Tobacco Smoker - Medications Home Medications: Home Medications Medication Instructions Recorded Confirmed Last Taken Type Albuterol Mdi (or & Nicu Only) 1 puff IH QID PRN #1 inha 04/14/19 01/17/21 Unknown Rx [ProAir HFA Inhaler] Amlodipine Besylate [Norvasc] 5 mg PO QDAY #30 tab 04/14/19 01/17/21 Unknown Rx [place] Carbonate [[place] 450 mg PO BID 04/14/19 01/17/21 04/14/19 08:00 History Carbonate ER] 450 Melatonin [Melatonin 5MG TAB] 5 mg PO QHS PRN #30 tablet 03/01/20 01/17/21 Unknown Rx [place]-3 Fatty Acids/Fish Oil [Fish 2,000 mg PO BID #60 capsule 03/01/20 01/17/21 Unknown Rx Oil] Quetiapine Fumarate [SEROquel] 300 mg PO QHS #30 03/01/20 01/17/21 Unknown Rx hydroCHLOROthiazide [HCTZ] 25 mg PO QDAY tablet 03/01/20 01/17/21 Unknown Rx traZODone [Desyrel] 50 mg PO QHS #30 tablet 03/01/20 01/17/21 Unknown Rx Mupirocin [Bactroban 2% OINT] 1 applic TP TID 5 Days #1 tube 03/09/20 01/17/21 Unknown Rx hydroCHLOROthiazide [HCTZ] 25 mg PO QDAY 01/17/21 01/17/21 Unknown History [place] Carbonate ER [Lithobid ER] 450 mg PO BID tablet 01/24/21 Unknown Rx Sertraline [Zoloft] 50 mg PO QDAY 30 Days #30 tablet 01/24/21 Unknown Rx amLODIPine 5 mg PO QDAY tablet 01/24/21 Unknown Rx hydroCHLOROthiazide [HCTZ] 25 mg PO QDAY tablet 01/24/21 Unknown Rx traZODone [Desyrel] 50 mg PO QHS 30 Days #30 tablet 01/24/21 Unknown Rx Lisinopril/Hydrochlorothiazide 1 each PO QDAY 30 Days #30 tablet 03/21/21 Unknown Rx [Zestoretic 10-12.5 mg Tablet] Ketorolac [Toradol] 10 mg PO Q8H PRN #10 tablet 05/25/21 Unknown Rx amLODIPine 10 mg PO DAILY #30 tab 09/29/21 Unknown Rx hydroCHLOROthiazide [Hctz] 12.5 mg PO QDAY #30 capsule 09/29/21 Unknown Rx lisinopriL [Lisinopril] 10 mg PO DAILY #30 tab 09/29/21 Unknown Rx ED Physical Exam - General Limitations: No Limitations General appearance: alert, in no apparent distress - Head Head exam: Present: atraumatic, normocephalic - Eye Eye exam: Present: normal appearance - Neck Neck exam: Present: normal inspection, full ROM. Absent: lymphadenopathy - Respiratory Respiratory exam: Absent: respiratory distress - Cardiovascular Cardiovascular Exam: Present: regular rate - Extremities Exam Extremities exam: Present: full ROM - Back Exam Back exam: Present: full ROM - Neurological Exam Neurological exam: Present: alert, oriented X3, normal gait - Psychiatric Psychiatric exam: Present: normal affect, normal mood - Skin Skin exam: Present: warm, dry, intact, normal color. Absent: rash ED Course Vital Signs 09/29/21 17:37 Temperature 97.7 F Pulse Rate 94 H Respiratory 16 Rate Blood Pressure 184/113 [Left] O2 Sat by Pulse 97 Oximetry - Reevaluation(s) Reevaluation #1: 09/29/21 21:07 Patient is speaking in full sentences with no signs of distress noted. ED Recheck MDM - Medical Decision Making 51-year-old male that presents with medication refill. Patient stated takes HCTZ 12.5 mg, lisinopril 10 mg and Norvasc 10 mg. Physical exam otherwise unremarkable. Patient was instructed to follow-up with a primary care doctor in 3-5 days or if symptoms worsen and continue return to emergency room as soon as possible. At time of discharge, the patient does not seem toxic or ill in appearance. No acute signs of distress noted. Patient agrees to discharge treatment plan of care. No further questions noted by the patient. Critical care attestation.: If time is entered above; I have spent that time in minutes in the direct care of this critically ill patient, excluding procedure time. ED Disposition Clinical Impression: Medication refill Disposition: 01 HOME / SELF CARE / HOMELESS Is pt being admited?: No Does the pt Need Aspirin: No Condition: Stable Additional Instructions: Follow-up with a primary care doctor in 3-5 days or if symptoms worsen and continue return to emergency room as soon as possible. Prescriptions: amLODIPine 10 mg PO DAILY #30 tab hydroCHLOROthiazide [Hctz] 12.5 mg PO QDAY #30 capsule lisinopriL [Lisinopril] 10 mg PO DAILY #30 tab Referrals: PRIMARY CARE, [Referring] - 3-5 Days [facility] [Outside] - 3-5 Days Time of Disposition: 21:13
[2021-09-29 21:31] VITALS: BP 149/107
== END 2021-09-29 21:47 | disposition home or self-care (01) ==
LOC: ED 17:07
DX: I10 Essential (primary) hypertension (principal); Z76.0 Encounter for issue of repeat prescription; Z88.8 Allergy status to other drugs, medicaments and biological substances; Z88.4 Allergy status to anesthetic agent
CPT/HCPCS: 99282

== ENCOUNTER 2021-11-20 14:10 | Emergency (ER) | payer MEDICARE ==
[2021-11-20 15:51] VITALS: BP 152/87
--- NOTE | 2021-11-20 16:35 | Emergency Department Report ---
ED General Adult HPI - General Chief complaint: High BP Stated complaint: BLOOD PRESSURE Source: patient Mode of arrival: Ambulatory Limitations: No Limitations - History of Present Illness Initial comments: Patient is a 51-year-old male with a history of bipolar disorder, hyperlipidemia, anxiety and depression as well as schizophrenia and hypertension who presents to the ED with complaint of persistent intermittent headache with elevated blood pressure for the last 2 weeks. Patient states that he ran out of his blood pressure medications over 3 weeks ago. Patient states that he takes lisinopril-HCTZ 20 mg - 25 mg daily for blood pressure medication but he ran out of this medication has not been able to take anything for the last 3 weeks. Patient denies dizziness, syncope, chest pain, nausea and vomiting, neck pain, change in vision, fever, chills, cough, sore throat, traumatic injury or fall, abdominal pain, lightheadedness or palpitations. MD Complaint: Elevated blood pressure; headache; ran out of blood pressure medication -: Sudden, week(s) (2) Location: head Radiation: non-radiation Severity scale (0 -10): 4 Quality: aching, dull Consistency: constant Improves with: none Worsens with: none Associated Symptoms: denies other symptoms, headaches. denies: confusion, chest pain, cough, diaphoresis, fever/chills, loss of appetite, rash, seizure, shortness of breath Treatments Prior to Arrival: none - Related Data Home Medications Medication Instructions Recorded Confirmed Last Taken [place] Carbonate [[place] 450 mg PO BID 04/14/19 01/17/21 04/14/19 08:00 Carbonate ER] 450 hydroCHLOROthiazide [HCTZ] 25 mg PO QDAY 01/17/21 01/17/21 Unknown Previous Rx's Medication Instructions Recorded Last Taken Type Albuterol Mdi (or & Nicu Only) 1 puff IH QID PRN #1 inha 04/14/19 Unknown Rx [ProAir HFA Inhaler] Amlodipine Besylate [Norvasc] 5 mg PO QDAY #30 tab 04/14/19 Unknown Rx Melatonin [Melatonin 5MG TAB] 5 mg PO QHS PRN #30 tablet 03/01/20 Unknown Rx [place]-3 Fatty Acids/Fish Oil [Fish 2,000 mg PO BID #60 capsule 03/01/20 Unknown Rx Oil] Quetiapine Fumarate [SEROquel] 300 mg PO QHS #30 03/01/20 Unknown Rx hydroCHLOROthiazide [HCTZ] 25 mg PO QDAY tablet 03/01/20 Unknown Rx traZODone [Desyrel] 50 mg PO QHS #30 tablet 03/01/20 Unknown Rx Mupirocin [Bactroban 2% OINT] 1 applic TP TID 5 Days #1 tube 03/09/20 Unknown Rx [place] Carbonate ER [Lithobid ER] 450 mg PO BID tablet 01/24/21 Unknown Rx Sertraline [Zoloft] 50 mg PO QDAY 30 Days #30 tablet 01/24/21 Unknown Rx amLODIPine 5 mg PO QDAY tablet 01/24/21 Unknown Rx hydroCHLOROthiazide [HCTZ] 25 mg PO QDAY tablet 01/24/21 Unknown Rx traZODone [Desyrel] 50 mg PO QHS 30 Days #30 tablet 01/24/21 Unknown Rx Lisinopril/Hydrochlorothiazide 1 each PO QDAY 30 Days #30 tablet 03/21/21 Unknown Rx [Zestoretic 10-12.5 mg Tablet] Ketorolac [Toradol] 10 mg PO Q8H PRN #10 tablet 05/25/21 Unknown Rx amLODIPine 10 mg PO DAILY #30 tab 09/29/21 Unknown Rx hydroCHLOROthiazide [Hctz] 12.5 mg PO QDAY #30 capsule 09/29/21 Unknown Rx lisinopriL [Lisinopril] 10 mg PO DAILY #30 tab 09/29/21 Unknown Rx Ibuprofen [Motrin] 600 mg PO Q8H PRN #30 tablet 11/20/21 Unknown Rx Lisinopril/Hydrochlorothiazide 1 tab PO QDAY #30 tab 11/20/21 Unknown Rx [Zestoretic 20-12.5 mg] Allergies Allergy/AdvReac Type Severity Reaction Status Date / Time benztropine [From Cogentin] Allergy Itching Verified 08/04/18 08:18 chlorpromazine HCl Allergy Itching Verified 08/04/18 08:18 [From Thorazine] fluoxetine HCl [From Prozac] Allergy Swelling Verified 08/04/18 08:18 haloperidol [From Haldol] Allergy Itching Verified 08/04/18 08:18 haloperidol lactate Allergy Itching Verified 08/04/18 08:18 [From Haldol] propranolol HCl Allergy Itching Verified 08/04/18 08:18 [From Inderal LA] ED Review of Systems ROS: Stated complaint: BLOOD PRESSURE Other details as noted in HPI Constitutional: denies: chills, fever Eyes: denies: eye pain, eye discharge, vision change ENT: other (Elevated blood pressure). denies: ear pain, throat pain Respiratory: denies: cough, shortness of breath, wheezing Cardiovascular: denies: chest pain, palpitations Endocrine: no symptoms reported Gastrointestinal: denies: abdominal pain, nausea, vomiting, diarrhea Genitourinary: denies: urgency, dysuria Musculoskeletal: denies: back pain, joint swelling, arthralgia Skin: denies: rash, lesions Neurological: headache. denies: weakness, paresthesias Psychiatric: denies: anxiety, depression Hematological/Lymphatic: denies: easy bleeding, easy bruising ED Past Medical Hx - Past Medical History Hx Hypertension: Yes Hx Congestive Heart Failure: No Hx Diabetes: No Hx Renal Disease: No Hx Arthritis: No Hx Seizures: No Hx Psychiatric Treatment: Yes (depression, bi-polar, schizophrenia) Hx Asthma: No Hx COPD: No Hx Dementia: No Additional medical history: high cholesterol - Surgical History Hx Cholecystectomy: No Hx Appendectomy: No - Social History Smoking Status: Never Smoker - Medications Home Medications: Home Medications Medication Instructions Recorded Confirmed Last Taken Type Albuterol Mdi (or & Nicu Only) 1 puff IH QID PRN #1 inha 04/14/19 01/17/21 Unknown Rx [ProAir HFA Inhaler] Amlodipine Besylate [Norvasc] 5 mg PO QDAY #30 tab 04/14/19 01/17/21 Unknown Rx [place] Carbonate [[place] 450 mg PO BID 04/14/19 01/17/21 04/14/19 08:00 History Carbonate ER] 450 Melatonin [Melatonin 5MG TAB] 5 mg PO QHS PRN #30 tablet 03/01/20 01/17/21 Unknown Rx [place]-3 Fatty Acids/Fish Oil [Fish 2,000 mg PO BID #60 capsule 03/01/20 01/17/21 Unknown Rx Oil] Quetiapine Fumarate [SEROquel] 300 mg PO QHS #30 03/01/20 01/17/21 Unknown Rx hydroCHLOROthiazide [HCTZ] 25 mg PO QDAY tablet 03/01/20 01/17/21 Unknown Rx traZODone [Desyrel] 50 mg PO QHS #30 tablet 03/01/20 01/17/21 Unknown Rx Mupirocin [Bactroban 2% OINT] 1 applic TP TID 5 Days #1 tube 03/09/20 01/17/21 Unknown Rx hydroCHLOROthiazide [HCTZ] 25 mg PO QDAY 01/17/21 01/17/21 Unknown History [place] Carbonate ER [Lithobid ER] 450 mg PO BID tablet 01/24/21 Unknown Rx Sertraline [Zoloft] 50 mg PO QDAY 30 Days #30 tablet 01/24/21 Unknown Rx amLODIPine 5 mg PO QDAY tablet 01/24/21 Unknown Rx hydroCHLOROthiazide [HCTZ] 25 mg PO QDAY tablet 01/24/21 Unknown Rx traZODone [Desyrel] 50 mg PO QHS 30 Days #30 tablet 01/24/21 Unknown Rx Lisinopril/Hydrochlorothiazide 1 each PO QDAY 30 Days #30 tablet 03/21/21 Unknown Rx [Zestoretic 10-12.5 mg Tablet] Ketorolac [Toradol] 10 mg PO Q8H PRN #10 tablet 05/25/21 Unknown Rx amLODIPine 10 mg PO DAILY #30 tab 09/29/21 Unknown Rx hydroCHLOROthiazide [Hctz] 12.5 mg PO QDAY #30 capsule 09/29/21 Unknown Rx lisinopriL [Lisinopril] 10 mg PO DAILY #30 tab 09/29/21 Unknown Rx Ibuprofen [Motrin] 600 mg PO Q8H PRN #30 tablet 11/20/21 Unknown Rx Lisinopril/Hydrochlorothiazide 1 tab PO QDAY #30 tab 11/20/21 Unknown Rx [Zestoretic 20-12.5 mg] ED Physical Exam - General Limitations: No Limitations General appearance: alert, in no apparent distress - Head Head exam: Present: atraumatic, normocephalic, normal inspection - Eye Eye exam: Present: normal appearance, PERRL, EOMI Pupils: Present: normal accommodation - ENT ENT exam: Present: normal exam, normal orophraynx, mucous membranes moist, TM's normal bilaterally, normal external ear exam - Neck Neck exam: Present: normal inspection, full ROM. Absent: tenderness - Respiratory Respiratory exam: Present: normal lung sounds bilaterally. Absent: respiratory distress, wheezes, rales, rhonchi, chest wall tenderness, accessory muscle use, prolonged expiratory - Cardiovascular Cardiovascular Exam: Present: regular rate, normal rhythm, normal heart sounds. Absent: systolic murmur, diastolic murmur, rubs, gallop - GI/Abdominal GI/Abdominal exam: Present: soft, normal bowel sounds. Absent: tenderness, guarding, rebound, hyperactive bowel sounds, hypoactive bowel sounds, organomegaly - Extremities Exam Extremities exam: Present: normal inspection, full ROM, normal capillary refill. Absent: tenderness - Back Exam Back exam: Present: normal inspection, full ROM. Absent: tenderness, CVA tenderness (R), CVA tenderness (L), muscle spasm, paraspinal tenderness, vertebral tenderness - Neurological Exam Neurological exam: Present: alert, oriented X3, CN II-XII intact, normal gait, reflexes normal - Psychiatric Psychiatric exam: Present: normal affect, normal mood, anxious - Skin Skin exam: Present: warm, dry, intact, normal color. Absent: rash ED Course Vital Signs 11/20/21 15:49 Temperature 98 F Pulse Rate 86 Respiratory 18 Rate Blood Pressure 152/87 O2 Sat by Pulse 99 Oximetry ED Medical Decision Making - Medical Decision Making This is a 51-year-old male with a history of bipolar disorder, hyperlipidemia, anxiety and depression as well as schizophrenia and hypertension who presents to the ED with complaint of persistent intermittent headache with elevated blood pressure for the last 2 weeks. Patient states that he ran out of his blood pressure medications over 3 weeks ago. Patient states that he takes lisinopril- HCTZ 20 mg - 25 mg daily for blood pressure medication but he ran out of this medication has not been able to take anything for the last 3 weeks. In the ED, patient is alert and oriented x3 and is not in any distress. Patient was discharged home on medications and advised to follow-up with his primary care physician in 7 to 10 days for reevaluation. Patient was advised to return to the ED immediately if symptoms get worse. - Differential Diagnosis Uncontrolled hypertension; tension headache; anxiety; Critical care attestation.: If time is entered above; I have spent that time in minutes in the direct care of this critically ill patient, excluding procedure time. ED Disposition Clinical Impression: Uncontrolled stage 2 hypertension, Anxiety as acute reaction to exceptional stress Tension-type headache, not intractable Qualifiers: Headache chronicity pattern: acute headache Qualified Code(s): G44.209 - Tension-type headache, unspecified, not intractable Disposition: 01 HOME / SELF CARE / HOMELESS Is pt being admited?: No Does the pt Need Aspirin: No Condition: Stable Instructions: Hypertension (ED), Tension Headache, Adult, [id number], Hypertension, Adult, [id number], Generalized Anxiety Disorder, Adult Additional Instructions: Take medication with food, drink plenty of fluids, and follow-up with your primary care physician in 7 to 10 days for reevaluation. Return to the ED immediately if symptoms get worse. Prescriptions: Ibuprofen [Motrin] 600 mg PO Q8H PRN #30 tablet PRN Reason: Pain Lisinopril/Hydrochlorothiazide [Zestoretic 20-12.5 mg] 1 tab PO QDAY #30 tab Referrals: [facility] [Provider Group] - 7-10 days Time of Disposition: 16:36 Print Language: HONDURAN
== END 2021-11-20 16:54 | disposition home or self-care (01) ==
LOC: ED 14:10
DX: I10 Essential (primary) hypertension (principal); F41.9 Anxiety disorder, unspecified; G44.209 Tension-type headache, unspecified, not intractable; Z88.8 Allergy status to other drugs, medicaments and biological substances
CPT/HCPCS: 99282

== ENCOUNTER 2021-11-26 17:58 | Emergency (ER) | payer MEDICARE ==
[2021-11-26 18:39] VITALS: BP 156/98
== END 2021-11-27 05:11 | disposition left against medical advice (07) ==
LOC: ED 17:58
DX: H92.02 Otalgia, left ear (principal); Z53.21 Procedure and treatment not carried out due to patient leaving prior to being seen by health care provider

== ENCOUNTER 2022-01-21 15:02 | Emergency (ER) | payer MEDICARE ==
[2022-01-21 17:56] LABS: Amphetamine Screen,Urine Negative; Benzodiazepines Screen,Urine Negative; Cannabinoid Screen,Urine Negative; Cocaine Screen,Urine Negative; Methadone Screen,Urine Negative; Opiate Screen,Urine Negative
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
[2022-01-21 20:03] LABS: Hyaline Casts,Urine 5 /LPF; Mucus,Urine 3+ /HPF
[2022-01-21 20:15] LABS: Basophils # (Auto) 0.1 K/mm3 (0.0-0.1); Basophils % (Auto) 0.4 % (0.0-1.8); Eosinophils # (Auto) 0.1 K/mm3 (0.0-0.4); Eosinophils % (Auto) 0.4 % (0.0-4.3); Hematocrit 48.8 % (35.5-45.6); Hemoglobin 16.1 gm/dl (11.8-15.2); Lymphocytes # (Auto) 3.6 K/mm3 (1.2-5.4); Lymphocytes % (Auto) 25.1 % (13.4-35.0); Mean Corpuscular HGB Conc 33 % (32-34); Mean Corpuscular Volume 92 fl (84-94); Monocytes # (Auto) 1.1 K/mm3 (0.0-0.8); Monocytes % (Auto) 7.4 % (0.0-7.3); Platelet Count 239 K/mm3 (140-440); Red Cell Distribution Width 13.5 % (13.2-15.2)
[2022-01-21 20:27] LABS: BUN/Creatinine Ratio 13
[2022-01-21 20:32] LABS: Alanine Aminotransferase 36 units/L (7-56); Albumin 4.4 g/dL (3.9-5); Blood Urea Nitrogen 15 mg/dL (9-20); Calcium 9.2 mg/dL (8.4-10.2); Hemolysis Index 16
[2022-01-21 20:41] LABS: Bilirubin,Urine Negative (Negative); Blood,Urine Negative (Negative); Color,Urine Yellow (Yellow); Protein,Urine <15 mg/dL mg/dL (Negative); Urobilinogen,Urine < 2.0 mg/dL (<2.0)
[2022-01-22 08:31] VITALS: BP 127/50
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
== END 2022-01-22 13:40 | disposition home or self-care (01) ==
LOC: ED 15:02
DX: F31.9 Bipolar disorder, unspecified (principal); Z76.0 Encounter for issue of repeat prescription; I10 Essential (primary) hypertension; Z91.09 Other allergy status, other than to drugs and biological substances; Z79.899 Other long term (current) drug therapy
CPT/HCPCS: 36415; 80053; 80307; 80320; 81001; 85025; 99284; G0480